=== PATIENT | female | born 1960 | race Caucasian/White ===

== ENCOUNTER 2018-06-06 20:14 | Outpatient (REF) | payer MEDICAID, SELFPAY ==
[2018-06-06 20:40] LABS: Anion Gap 8.4 mmol/L (3-11); BUN 13 mg/dL (7-18); CO2 26.6 mmol/L (21.0-32.0); CREATININE 1.36 mg/dL (0.55-1.02); Chloride 104 mmol/L (98-107); Estimated GFR 39.94 (mL/min/1.73m2); Glucose 93 mg/dL (70-100); HDL Cholesterol 53 mg/dL (40-60); LDL CHOLESTEROL 139 mg/dL (<100); Potassium 4.1 mmol/L (3.5-5.1); Sodium 139 mmol/L (136-145)
== END 2018-06-06 20:34 ==
LOC: NCHCN 20:14
PROVIDERS: PCP Nurse Practitioner Family; Visit Provider Nurse Practitioner Family
DX: N28.9 Disorder of kidney and ureter, unspecified (principal); I10 Essential (primary) hypertension; E78.5 Hyperlipidemia, unspecified
CPT/HCPCS: 80048; 83721; 83718

== ENCOUNTER 2018-08-31 00:17 | Outpatient (CLI) | payer MEDICAID, SELFPAY ==
--- NOTE | 2018-08-31 10:00 | DI.US_ITS ---
SYMPTOM/DIAGNOSIS: ASSESS STRUCTURE OF KIDNEY, CKD, N18.4 RENAL ULTRASOUND: The kidneys are normal in size and shape and there is no evidence of a renal mass, hydronephrosis or nephrolithiasis. Ureteral jets were noted in the bladder bilaterally. Urinary bladder is unremarkable in appearance. Pre and post void urinary bladder volume measurements are 323 cc's and 55 cc's respectively. CONCLUSION: Negative renal ultrasound.
== END 2018-08-31 00:37 ==
PROVIDERS: PCP Nurse Practitioner Family; Visit Provider Internal Medicine
DX: N18.4 Chronic kidney disease, stage 4 (severe) (principal)
CPT/HCPCS: 76770

== ENCOUNTER 2018-10-09 09:11 | Outpatient (CLI) | payer MEDICAID, SELFPAY ==
[2018-10-09 09:32] LABS: Abs Immature Grans 0.02 k/cumm (0.0-0.09); Absolute Basophil Count 0.04 k/cumm (0.0-0.2); Absolute Eosinophil Count 0.17 k/cumm (0.0-0.7); Absolute Lymphocyte Count 1.78 k/cumm (1.2-3.4); Absolute Monocyte Count 0.36 k/cumm (0.11-0.7); Absolute Neutrophil Count 4.61 k/cumm (1.2-6.7); Basophils % 0.6; Eosinophils % 2.4; HCT 40.9 % (36.0-46.0); HGB 13.6 g/dL (12.0-15.5); Immature Grans % 0.3; Lymphocytes % 25.5; Mean Corp. HGB Concentration 33.3 g/dL (32.0-36.0); Mean Corpuscular Hemoglobin 29.6 pg (27.0-33.0); Mean Corpuscular Volume 88.9 fL (80-95); Mean Platelet Volume 10.4 fL (8.0-11.0); Monocytes % 5.2; Platelet Count 294 x1000/uL (130-400); RBC Distribution Width 12.9 % (11.7-14.6); White Blood Cell Count 6.98 k/cumm (4.4-10.8)
[2018-10-09 09:46] LABS: ALT 22 U/L (12-78); AST 12 U/L (15-37); Albumin 2.9 g/dL (3.4-5.0); Alkaline Phosphatase 79 U/L (46-116); Anion Gap 11.2 mmol/L (3-11); BUN 17 mg/dL (7-18); Bilirubin, Total 0.4 mg/dL (0.2-1.0); CO2 25.8 mmol/L (21.0-32.0); Calcium 9.3 mg/dL (8.5-10.1); Chloride 104 mmol/L (98-107); Estimated GFR 35.67 (mL/min/1.73m2); Glucose 116 mg/dL (70-100); Potassium 4.2 mmol/L (3.5-5.1); Sodium 141 mmol/L (136-145); Total Protein 7.2 g/dL (6.4-8.2)
== END 2018-10-09 09:31 ==
PROVIDERS: PCP Nurse Practitioner Family; Visit Provider Internal Medicine
DX: Z85.3 Personal history of malignant neoplasm of breast (principal)
CPT/HCPCS: 36415; 80053; 85025

== ENCOUNTER 2018-11-06 00:56 | Outpatient (CLI) | payer MEDICAID, SELFPAY ==
--- NOTE | 2018-11-06 08:45 | DI.DEXA_ITS ---
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 The bone mineral density measurements of the lumbar spine correspond to a total T score of 1.8, in the normal range. This is a 5% decrease when compared with 2016 and a 4.4% decreased when compared with 2013. The bone mineral density measurements of the left hip correspond to total T score of 2.8 and femoral neck T score of 2.0. Total bone mineral density is decreased 2.9% when compared with 2016 and a 2.5% when compared with 2013. The left forearm bone mineral density measurements correspond to a total T score of 0.7 and a T score of the distal third of 0.2. This is not significantly changed from 2016 but represents a 9.2% decrease when compared with 2013. IMPRESSION: Normal bone mineral density with mild decrease when compared with previous exams.
--- NOTE | 2018-11-06 09:30 | DI.MAMMO_ITS ---
SYMPTOMS/DIAGNOSIS: ANNUAL SCREENING, H/O BREAST CA, Z85.3 MAMMOGRAM: Mammograms were interpreted according to the usual protocol including computer analysis with CAD system, tomosynthesis and C view imaging. The patient is again noted to be status post right lumpectomy. Comparison is made with exams from 2012 through 2018. The breasts are composed of scattered fibroglandular densities, breast density B. Scarring and coarse large calcification is seen in the upper outer quadrant of the right breast. No suspicious masses or suspicious microcalcifications or changes are seen. IMPRESSION: Category 2, negative mammogram with benign findings. Yearly screening mammography is recommended. MQSA ASSESSMENT OF FINDINGS: Negative with benign findings. Category 2. Patient will receive a letter notifying them of these results. BI-RADS category B. There are scattered areas of fibroglandular density.
[2018-11-06 10:03] LABS: Abs Immature Grans 0.01 k/cumm (0.0-0.09); Absolute Basophil Count 0.03 k/cumm (0.0-0.2); Absolute Monocyte Count 0.43 k/cumm (0.11-0.7); Absolute Neutrophil Count 3.97 k/cumm (1.2-6.7); Basophils % 0.5; Eosinophils % 3.2; HCT 40.3 % (36.0-46.0); HGB 13.3 g/dL (12.0-15.5); Immature Grans % 0.2; Lymphocytes % 25.6; Mean Corpuscular Hemoglobin 29.9 pg (27.0-33.0); Mean Corpuscular Volume 90.6 fL (80-95); Mean Platelet Volume 10.4 fL (8.0-11.0); Monocytes % 6.9; Neutrophils % 63.6; Platelet Count 301 x1000/uL (130-400); RBC 4.45 m/cumm (4.00-5.20); RBC Distribution Width 13.1 % (11.7-14.6); White Blood Cell Count 6.24 k/cumm (4.4-10.8)
[2018-11-06 10:11] LABS: ALT 22 U/L (12-78); AST 16 U/L (15-37); Albumin 3.4 g/dL (3.4-5.0); Alkaline Phosphatase 80 U/L (46-116); Anion Gap 6.8 mmol/L (3-11); BUN 14 mg/dL (7-18); Bilirubin, Total 0.2 mg/dL (0.2-1.0); CO2 29.2 mmol/L (21.0-32.0); CREATININE 1.37 mg/dL (0.55-1.02); Calcium 9.1 mg/dL (8.5-10.1); Chloride 105 mmol/L (98-107); Glucose 115 mg/dL (70-100); Potassium 4.2 mmol/L (3.5-5.1); Sodium 141 mmol/L (136-145)
== END 2018-11-06 01:16 ==
PROVIDERS: PCP Nurse Practitioner Family; Visit Provider Internal Medicine
DX: Z85.3 Personal history of malignant neoplasm of breast (principal); Z12.31 Encounter for screening mammogram for malignant neoplasm of breast; M81.8 Other osteoporosis without current pathological fracture; T38.6X5A Adverse effect of antigonadotrophins, antiestrogens, antiandrogens, not elsewhere classified, initial encounter
CPT/HCPCS: 36415; 77063; 77067; 77080; 80053; 85025

== ENCOUNTER 2019-01-16 02:00 | Outpatient (CLI) | payer BC, MEDICAID, SELFPAY ==
--- NOTE | 2019-01-16 14:32 | DI.CTLCSR_ITS ---
SYMPTOMS/DIAGNOSIS: TOBACCO ABUSE, [facility], F17.200, Z00.[address]: A noncontrast enhanced examination was performed. There are emphysematous changes in the lungs. A left lower lobe pleural-based mass is identified, the maximal AP diameter measures 3.5 cm, transverse diameter 4.6 cm in the axial plane. The abnormality extends inferiorly to the level of the diaphragmatic pleura. In the coronal plane, the region of abnormality has a maximal transverse diameter of 4.9 cm and a length of up to 7 cm. A small region of the abnormality on the pleural surface in the right lower lobe is presumed to likely represent scarring. There is no evidence of a right or left pulmonary infiltrate. There is no pleural effusion. Allowing for the absence of contrast material, there is no evidence of gross hilar or mediastinal adenopathy. The heart is not enlarged. There are atherosclerotic changes involving the aorta without evidence of an aneurysm. SUMMARY: There is evidence of COPD. A sizeable posterior pleural-based mass is noted in the left lower lobe and right lower lobe scarring is apparent. The findings are highly suspicious for a pulmonary malignancy and further assessment with a biopsy is suggested. Lung-RAD Category: 4B- Suspicious Lung- RAD Management of Findings: Chest CT, PET/CT, and/or tissue sampling
== END 2019-01-16 02:20 ==
PROVIDERS: PCP Nurse Practitioner Family; Visit Provider Nurse Practitioner Family
DX: Z12.2 Encounter for screening for malignant neoplasm of respiratory organs (principal); F17.200 Nicotine dependence, unspecified, uncomplicated; J44.9 Chronic obstructive pulmonary disease, unspecified; D38.1 Neoplasm of uncertain behavior of trachea, bronchus and lung; J43.9 Emphysema, unspecified; J98.4 Other disorders of lung
CPT/HCPCS: G0297

== ENCOUNTER 2019-01-16 08:36 | Outpatient (REF) | payer BC, MEDICAID, SELFPAY ==
[2019-01-16 13:24] LABS: Cholesterol 193 mg/dL (50-200); Glucose 84 mg/dL (70-100); HDL Cholesterol 57 mg/dL (40-60); LDL CHOLESTEROL 123 mg/dL (<100); Triglyceride 73 mg/dL (30-150)
== END 2019-01-16 08:56 ==
LOC: NCHCN 08:36
PROVIDERS: PCP Nurse Practitioner Family; Visit Provider Nurse Practitioner Family
DX: Z00.00 Encounter for general adult medical examination without abnormal findings (principal); E78.5 Hyperlipidemia, unspecified; Z13.1 Encounter for screening for diabetes mellitus
CPT/HCPCS: 80061; 82947; 83721

== ENCOUNTER 2019-03-25 09:00 | Outpatient (CLI) | payer BC, MEDICAID, SELFPAY ==
[2019-03-25 09:56] LABS: Abs Immature Grans 0.01 k/cumm (0.0-0.09); Absolute Basophil Count 0.03 k/cumm (0.0-0.2); Absolute Eosinophil Count 0.18 k/cumm (0.0-0.7); Absolute Lymphocyte Count 1.67 k/cumm (1.2-3.4); Absolute Monocyte Count 0.48 k/cumm (0.11-0.7); Absolute Neutrophil Count 3.11 k/cumm (1.2-6.7); Basophils % 0.5; Eosinophils % 3.3; HCT 41.2 % (36.0-46.0); HGB 13.6 g/dL (12.0-15.5); Immature Grans % 0.2; Lymphocytes % 30.5; Mean Corpuscular Hemoglobin 29.1 pg (27.0-33.0); Mean Platelet Volume 10.2 fL (8.0-11.0); Monocytes % 8.8; Neutrophils % 56.7; Platelet Count 303 x1000/uL (130-400); RBC 4.68 m/cumm (4.00-5.20); RBC Distribution Width 13.1 % (11.7-14.6); White Blood Cell Count 5.48 k/cumm (4.4-10.8)
[2019-03-25 10:17] LABS: ALT 24 U/L (12-78); AST 17 U/L (15-37); Albumin 3.6 g/dL (3.4-5.0); Alkaline Phosphatase 95 U/L (46-116); Anion Gap 7.2 mmol/L (3-11); BUN 16 mg/dL (7-18); Bilirubin, Total 0.3 mg/dL (0.2-1.0); CO2 28.8 mmol/L (21.0-32.0); CREATININE 1.37 mg/dL (0.55-1.02); Calcium 9.1 mg/dL (8.5-10.1); Chloride 104 mmol/L (98-107); Estimated GFR 39.46 (mL/min/1.73m2); Glucose 90 mg/dL (70-100); Potassium 4.8 mmol/L (3.5-5.1); Sodium 140 mmol/L (136-145); Total Protein 6.9 g/dL (6.4-8.2)
[2019-03-26 15:09] LABS: Cancer Ag 15-3 <8.0 U/mL (<30)
== END 2019-03-25 09:20 ==
PROVIDERS: PCP Nurse Practitioner Family; Visit Provider Internal Medicine
DX: C50.411 Malignant neoplasm of upper-outer quadrant of right female breast (principal); Z17.0 Estrogen receptor positive status [ER+]; Z85.3 Personal history of malignant neoplasm of breast
CPT/HCPCS: 36415; 80053; 86304; 85025; 86300

== ENCOUNTER 2019-04-04 17:49 | Emergency (ER) | payer OTHER, MEDICAID, SELFPAY ==
[2019-04-04] VITALS (24 sets, daily range): BP systolic 122–152; BP diastolic 63–79; PULSE 77–108; RESP 13–23; TEMP 37.5; O2SAT 93–97
--- NOTE | 2019-04-04 18:04 | W.ED.GENAD ---
Discharge Plan Disposition Patient Disposition: AGAINST MEDICAL ADVICE Condition: Stable Discharge Details Chief Complaint: Dizzy/Sync Clinical Impression: Dizziness, SOB (shortness of breath) Primary Care Provider: Aries Kuhn ED Provider: Semaj Light Home Meds and New Rx's Prescriptions: No Action losartan 50 mg Tablet 50 mg PO DAILY RF: 0 cetirizine 10 mg Tablet 10 mg PO DAILY RF: 0 fluticasone propionate 50 mcg/actuation [place],Suspension 1 spray INTRANASAL DAILY RF: 0 Calcium 600 + D(3) 600 mg calcium- 200 unit Capsule 1 cap PO DAILY RF: 0 Discharge Instructions Instructions: Dyspnea (ED), Dizziness (ED) Additional Instructions: As you know it is my recommendation that you stay overnight secondary to your elevated creatinine and your concerning history that worries me for a blood clot. You are leaving against my advice, and I understand your apprehensions for staying overnight, however if at any point you change your mind please return immediately for reassessment. Please drink plenty of water as you go home. Please return promptly tomorrow for your VQ scan, you please come back to the ER immediately after your scan for reassessment and repeat blood draw. Will be contacted by our imaging staff to set up a time for the scan. You have been given subcu Lovenox, which will act as a blood thinner for 24 hours If you notice any worsening of your symptoms, or any new symptoms such as vomiting, diarrhea, fever, chills, shortness of breath, chest pain, numbness, weakness, or fainting , please return immediately to the emergency department for reevaluation. Please follow up with your primary care provider as soon as possible for reassessment and reevaluation. As always, it was a pleasure participating in your medical care today. Referrals: Whitney Ivey [NURSE PRACTITIONER] - Discharge Data Discharge Date/Time-TO BE ENTERED AT DEPARTURE: 04/04/19 21:18 Medical Decision Making This is a 58-year-old female with a past medical history of metastatic breast cancer with metastases to the lungs, who presents today for evaluation of dizziness, mild shortness of breath, and mild lightheadedness. Symptoms began roughly 1 to 2 hours ago when she was walking through the notably hot weather to a store when her symptoms came on. She did get in an air conditioned bus and felt significantly improved after this. She denies any red flags of chest tightness, chest heaviness, or history of cardiac disease. She denies any arm neck or shoulder pain. Exam demonstrates mild tachycardia, but otherwise normal blood pressure and oxygenation. With patient's history of malignancy, there is certainly concern for PE, dehydration and ACS is also on the differential. We will get a CT angiogram, rehydrate, and reassess. 10 PM The patient's laboratory work-up demonstrates a notable acute kidney injury with a significant increase in her creatinine. However her electrolytes are normal. EKG unremarkable, troponin normal, remainder of her laboratory work-up is relatively benign. Because of the acute kidney injury though do not feel that she would be a good candidate for CT angios. Did get a CT scan without contrast and although limited shows no signs of significant right heart strain, but does show the known malignancy in her lungs. After rehydration the patient feels much better, heart rate has normalized, she states that she would like to go home. In spite of her notable clinical improvement I am still significantly concerned for potential pulmonary embolism as well as the patient's acute kidney injury. There is a high likelihood that this is secondary to dehydration which caused her initial symptoms, however due to her history of malignancy, cardiac risk factors, in addition to her acute kidney injury and decreased renal function I do not feel that she would be a good candidate for discharge home, and I do feel that it is important that she stays overnight for continued hydration, laboratory reassessment, and VQ scan in the morning. I have called cardiology and confirmed with them that we could do a VQ scan tomorrow and they have agreed to this. When I did discuss this with the patient she very clearly and adamantly stated that she would not be staying overnight and that she needs to and wants to go home. She states that she feels fine, and sees no reason to stay overnight. I had a very long, and thorough discussion with her describing her laboratory changes, her decrease in renal function, and my significant concern for pulmonary embolism. I discussed how much of this could be notably life-threatening, and that significant pathology could exist which could be detrimental to her health and life. In spite of this the patient made it exquisitely clear that she will be going home. She understands that this is against my medical recommendation. I discussed with her going on anticoagulation therapy for the time being, and she states that she does not want to take any pill anticoagulants. She is willing to have a subcu Lovenox injection for the next 24 hours, and states that she will come back tomorrow morning for the VQ scan. I discussed with her the absolute importance of repeat labs tomorrow after her VQ scan and reassessment in the ED, and she assures me that she will come back to the ED for reassessment in the scan. We discussed red flags that she needs to immediately return for, as well as the open availability of the emergency department for her return if at any time she has a change in opinion. At this time the patient will be leaving against my medical advice. I have extensively reviewed the treatment plan and discharge instructions with the patient. I have addressed all patient concerns at this time. The patient was made aware of what symptoms to monitor for that would warrant a return to the emergency department. Discussed the plan with the patient, they demonstrate verbal understanding and agreement with our assessment and plan at this time. Patient is of a appropriate age to make decisions. The patient is of sound mind, appears clinically sober, and has capacity to make decisions by my clinical exam. We have provided options for treatment and discussed the risks and benefits of these options and refusing these options, including and disability specific to the patient's pathology. Patient is able to discuss the risks and benefits and alternatives of treatment and refusing treatment. The patient chooses to leave before evaluation and treatment is complete AGAINST MEDICAL ADVICE. EKG 18: 00 Rate 97, sinus rhythm, intervals normal, no significant ST elevations or depressions except for less than 1 mm elevation in V1. Q waves present in lead III. No T wave inversions. FINDINGS: Lungs: 5 x 4 cm left lower lobe mass. Adjacent satellite nodule. Minimal dependent subsegmental atelectasis. Pleural space: No pneumothorax. No pleural effusion. Heart: No pathologic dilation of the right ventricle. No cardiomegaly. Aorta: No aortic aneurysm. Lymph nodes: No enlarged lymph nodes. Bones/joints: No acute fracture. Soft tissues: No suspicious lesions. IMPRESSION: 1. 5 x 4 cm left lower lobe mass. Adjacent satellite nodule. Most concerning for malignancy. 2. No pathologic dilation of the right ventricle to suggest right heart strain. Dictated and Authenticated by: Consuelo Harmon MD. Ordering:CECY Cha MD COMPARISON: No relevant prior studies available. FINDINGS: Brain: No hemorrhage. No significant white matter disease. No edema. Ventricles: No ventriculomegaly. Bones/joints: No acute fracture. Sinuses: No acute sinusitis. Mastoid air cells: No mastoid effusion. Soft tissues: No suspicious lesions. IMPRESSION: No acute intracranial findings. Dictated and Authenticated by: Consuelo Harmon MD. Ordering:CECY Cha MD HPI General Date/Time Provider Initiated Documentation: 04/04/19 17:52. HPI Narrative: This is a 58-year-old female with a past medical history of metastatic breast cancer, who has received radiation in the past, and is now currently receiving chemotherapy. She also has a history of continued tobacco abuse, hypertension, and history of blood clots when she had a PICC line in place. She presents today for symptoms of dizziness, lightheadedness and mild shortness of breath. She states that today it is been notably hot out, and when she was going shopping in [place] she felt sweaty, dizzy, and shortness of breath while walking to 1 of the stores. She sat down in a cool bus and felt notably improved after this. Currently she still admits to mild lightheadedness mild shortness of breath but denies any chest pain, chest heaviness, arm neck or shoulder pain, fever, chills, significant headache, significant neck pain, cough, vomiting, or diarrhea. She denies any other complaints or any other modifying factors. She denies any history of cardiac disease. She is on no blood thinners. Related Data Home Medications Medication Instructions Recorded Confirmed calcium carbonate-vitamin D3 1 cap PO DAILY 04/04/19 04/04/19 [Calcium 600 + D(3)] cetirizine 10 mg PO DAILY 04/04/19 04/04/19 fluticasone propionate 1 spray INTRANASAL DAILY 04/04/19 04/04/19 losartan 50 mg PO DAILY 04/04/19 04/04/19 Allergies Allergy/AdvReac Type Severity Reaction Status Date / Time Sulfa (Sulfonamide Allergy Severe HIVES, Unverified 04/04/19 18:06 Antibiotics) ITCHING, BURNING Penicillins Allergy Mild Skin Rash Unverified 04/04/19 18:06 General Stated Complaint: Dizzy/Sync NAHID: 2 Review of Systems Review of Systems All systems reviewed & are unremarkable except as noted in HPI and below PFSH Medical History Deep venous thrombosis of upper extremity Infiltrating ductal carcinoma of breast, stage 3 Surgical History Breast, Mastectomy Family History Mother No problems noted. Father No problems noted. Social History Smoking/Tobacco Use Status: Current every day Tobacco Type: cigarettes Alcohol Intake: never Drug use: Never Do you feel safe at home: Yes Do you feel safe in your relationship?: Yes Exam Narrative Exam Narrative: 1.Const: Well-nourished, Well-developed, appearing stated age 2.Eyes: PERRL, no conjunctival injection, and symmetrical lids. 3.ENT: Atraumatic external nose and ears. Moist MM. Neck: Symmetric, trachea midline, No thyromegaly. 4.CVS: +S1/S2, No murmurs or gallops. Peripheral pulses 2+ and equal in all extremities. Brisk capillary refill in all extremities. 5.RESP: Unlabored respiratory effort. Clear to auscultation bilaterally. No wheezes rales or rhonchi 6.GI: Soft, Nontender/Nondistended, No hepatosplenomegaly. No guarding or rebound. 7.MSK: Normocephalic/Atraumatic, Extremities w/o deformity or ttp No cyanosis or clubbing, Normal movement of all extremities. No evidence of pitting edema. 8.Skin: Warm, Dry. Mild amount of redness on the patient's right breast, no evidence of abscess or induration. No significant warmth. 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 Sensation grossly intact, no focal neurologic deficits. All 6 cardinal planes of vision are fully intact. No evidence of rotatory or vertical nystagmus. The patient demonstrated a normal [id number], good dexterity. There was no evidence of dysdiadochokinesia. Patient was able to ambulate without difficulty. There was no wide-based gait. Romberg, and [id number] are both normal on testing. Sensation was intact bilaterally as well as muscle strength bilaterally for all extremities. Patient was able to verbalize butter cup with no slurring, or miss pronunciation. 10.Psych: (AAO) x3. Appropriate mood and affect Course Vital Signs Temperature 37.5 C 04/04/19 17:58 Pulse 105 H 04/04/19 17:58 Respiratory Rate 21 07/04/19 17:58 Pulse Oximetry 95 04/04/19 17:58 Temperature 37.5 C 04/04/19 17:58 Temperature Source Oral 04/04/19 17:58 Pulse 105 H 04/04/19 17:58 Respiratory Rate 21 04/04/19 17:58 Blood Pressure Position Sitting 04/04/19 17:58 Pulse Oximetry 95 04/04/19 17:58 Oxygen Delivery Method Room Air 04/04/19 17:58 Oxygen Flow Rate 0 04/04/19 17:58 Pain Level 3 04/04/19 17:58
[2019-04-04 18:30] LABS: BE (Venous) -0.1 mmol/L (-3-3); HCO3 (Venous) 25 mmol/L (22-28); O2 Sat (Venous) 72 % (70-80); TCO2 (Venous) 23 mmol/L (22-29); pCO2 (Venous) 40 mm/Hg (34-47); pO2 (Venous) 36 mm/Hg (28-44)
[2019-04-04 18:38] LABS: Abs Immature Grans 0.03 k/cumm (0.0-0.09); Absolute Basophil Count 0.02 k/cumm (0.0-0.2); Absolute Eosinophil Count 0.07 k/cumm (0.0-0.7); Absolute Lymphocyte Count 0.93 k/cumm (1.2-3.4); Absolute Monocyte Count 0.97 k/cumm (0.11-0.7); Basophils % 0.2; Eosinophils % 0.6; HCT 38.6 % (36.0-46.0); HGB 12.9 g/dL (12.0-15.5); Immature Grans % 0.3; Mean Corp. HGB Concentration 33.4 g/dL (32.0-36.0); Mean Corpuscular Hemoglobin 29.1 pg (27.0-33.0); Mean Corpuscular Volume 86.9 fL (80-95); Mean Platelet Volume 10.1 fL (8.0-11.0); Monocytes % 8.3; Neutrophils % 82.6; Platelet Count 249 x1000/uL (130-400); RBC 4.44 m/cumm (4.00-5.20); RBC Distribution Width 13.2 % (11.7-14.6); White Blood Cell Count 11.66 k/cumm (4.4-10.8)
[2019-04-04 18:40] LABS: Absolute Neutrophil Count 9.63 k/cumm (1.2-6.7)
[2019-04-04] MEDS: Normal Saline 1,000 ML 1000 ML IV (18:44)
[2019-04-04 18:56] LABS: BUN 21 mg/dL (7-18); CREATININE 1.93 mg/dL (0.55-1.02); Estimated GFR 26.57 (mL/min/1.73m2)
[2019-04-04 19:07] LABS: ALT 19 U/L (12-78); AST 8 U/L (15-37); Albumin 3.6 g/dL (3.4-5.0); Alkaline Phosphatase 82 U/L (46-116); Anion Gap 10.3 mmol/L (3-11); Bilirubin, Total 0.4 mg/dL (0.2-1.0); CO2 22.7 mmol/L (21.0-32.0); Calcium 9.2 mg/dL (8.5-10.1); Chloride 102 mmol/L (98-107); Glucose 107 mg/dL (70-100); NT-proBNP 249 pg/mL; Sodium 135 mmol/L (136-145); TSH (W/Ref FT4) 1.97 uIU/mL (0.358-3.74); Total Protein 7.2 g/dL (6.4-8.2)
[2019-04-04 19:09] LABS: Troponin I < 0.05 ng/mL (0.00-0.06)
[2019-04-04 20:04] LABS: INR 0.9 (0.9-1.1); Prothrombin Time 9.1 sec (9.3-11.0)
--- NOTE | 2019-04-04 20:35 | DI.VRAD_ITS ---
EXAM: CT Chest Without Contrast EXAM DATE/TIME: 04/04/2019 19:12 CLINICAL HISTORY: 58 years old, female; Shortness of breath; Patient HX: SOB, R heart strain, concern for pe. Non contrast exam due to insufficient labs TECHNIQUE: Imaging protocol: Axial computed tomography images of the chest without intravenous contrast. Coronal and sagittal reformatted images were created and reviewed. Radiation optimization: All CT scans at this facility use at least one of these dose optimization techniques: automated exposure control; mA and/or kV adjustment per patient size (includes targeted exams where dose is matched to clinical indication); or iterative reconstruction. COMPARISON: CT CHEST LUNG CANCER SCREEN 01/16/2019 14:32 FINDINGS: Lungs: 5 x 4 cm left lower lobe mass. Adjacent satellite nodule. Minimal dependent subsegmental atelectasis. Pleural space: No pneumothorax. No pleural effusion. Heart: No pathologic dilation of the right ventricle. No cardiomegaly. Aorta: No aortic aneurysm. Lymph nodes: No enlarged lymph nodes. Bones/joints: No acute fracture. Soft tissues: No suspicious lesions. IMPRESSION: 1. 5 x 4 cm left lower lobe mass. Adjacent satellite nodule. Most concerning for malignancy. 2. No pathologic dilation of the right ventricle to suggest right heart strain. Dictated and Authenticated by: Consuelo Harmon MD. Ordering:CECY Cha MD
--- NOTE | 2019-04-04 20:36 | DI.VRAD_ITS ---
EXAM: CT Head Without Contrast EXAM DATE/TIME: 04/04/2019 18:03 CLINICAL HISTORY: 58 years old, female; Dizziness; Patient HX: Dizzy, lightheaded, history of malignancy TECHNIQUE: Imaging protocol: Axial computed tomography images of the head without contrast. Coronal and sagittal reformatted images were created and reviewed. Radiation optimization: All CT scans at this facility use at least one of these dose optimization techniques: automated exposure control; mA and/or kV adjustment per patient size (includes targeted exams where dose is matched to clinical indication); or iterative reconstruction. COMPARISON: No relevant prior studies available. FINDINGS: Brain: No hemorrhage. No significant white matter disease. No edema. Ventricles: No ventriculomegaly. Bones/joints: No acute fracture. Sinuses: No acute sinusitis. Mastoid air cells: No mastoid effusion. Soft tissues: No suspicious lesions. IMPRESSION: No acute intracranial findings. Dictated and Authenticated by: Consuelo Harmon MD. Ordering:CECY Cha MD
--- NOTE | 2019-04-04 23:57 | DI.CT_ITS ---
SYMPTOM/DIAGNOSIS; EVAL FOR SOB, RT HEART STRAIN, CONCERN FOR PE CT CHEST NONCONTRAST: Comparison is made with chest CT for lung cancer screening dated 16 January 2019. A mass is again noted in the posterior left lung base which appears to have increased in size when compared to the previous exam. A small satellite nodule is unchanged. There is minimal atelectasis at the right lung base. The heart size is normal. No pleural or pericardial effusions are seen. The aorta is normal in diameter. The pulmonary arteries also appear normal in diameter. The visualized portions of the upper abdomen are unremarkable. IMPRESSION: Interval increase in size of left lower lobe mass. Biopsy was recommended on the previous exam. Clinical correlation is recommended,
--- NOTE | 2019-04-04 23:57 | DI.CT_ITS ---
SYMPTOM/DIAGNOSIS: DIZZY, LIGHTHEADED, HISTORY OF MALIGNANCY NONCONTRAST HEAD CT: Comparison is made with [address] No intracranial hemorrhage, mass or infarct is seen. There is no evidence of skull fracture. The sinuses and mastoid air cells appear clear. IMPRESSION: Negative head CT.
== END 2019-04-04 21:18 | disposition left against medical advice (07) ==
PROVIDERS: Emergency Provider Student in an Organized Health Care Education/Training Program; PCP Nurse Practitioner Family
DX: R42 Dizziness and giddiness (principal); R06.02 Shortness of breath; N17.9 Acute kidney failure, unspecified; Z53.29 Procedure and treatment not carried out because of patient's decision for other reasons; C78.02 Secondary malignant neoplasm of left lung; Z79.899 Other long term (current) drug therapy
CPT/HCPCS: 36415; 71250; 80053; 82805; 99285; 70450; 83880; 84443; 84484; 85025; 85610; 85730; J1650

== ENCOUNTER 2019-04-05 23:06 | Inpatient (IN) | payer OTHER, MEDICAID, SELFPAY ==
[2019-04-05 23:13] VITALS: BP 143/52; PULSE 92; RESP 20; TEMP 38.2; O2SAT 99
--- NOTE | 2019-04-05 23:30 | W.ED.GENAD ---
Discharge Plan Disposition Patient Disposition: [facility] INPATIENT Condition: Fair Discharge Details Chief Complaint: Fever Clinical Impression: Cellulitis of right breast Primary Care Provider: Aries Kuhn ED Provider: Wood Welch [facility] and New Rx's Prescriptions: No Action losartan 50 mg Tablet 50 mg PO DAILY RF: 0 cetirizine 10 mg Tablet 10 mg PO DAILY RF: 0 fluticasone propionate 50 mcg/actuation [place],Suspension 1 spray INTRANASAL DAILY RF: 0 Calcium 600 + D(3) 600 mg calcium- 200 unit Capsule 1 cap PO DAILY RF: 0 Ibrance 125 mg Capsule 125 mg PO HS RF: 0 Medical Decision Making Patient has right breast cellulitis. I do not suspect abscess but she will need imaging with a repeat CAT scan or ultrasound to rule this out. I am not overly concerned that she did not have the VQ scan done. She has no shortness of breath, chest pain, pleurisy, tachycardia, lightheadedness. Suspect her symptoms yesterday related to onset of illness with dehydration. Plan to establish IV and give fluids, recheck laboratory studies, start IV Ancef. We will plan admission given the extensive nature of the cellulitis and the need to rule out abscess. Patient laboratory studies for the most part unremarkable. Still some renal insufficiency with creatinine at 1.8. Lactic acid is normal. Electrolytes normal. White count normal at 9.5. She has received a gram of Ancef. She did spike a temp to 103 here. She received Tylenol for the fever. Case discussed with hospitalist, Dr. Hoffman. Patient admitted to [facility] for fluids, antibiotics. Did discuss need for imaging to rule out abscess. Patient admitted in stable condition. Medical Records Medical records reviewed: Yes I reviewed the patient's medical records. Lab Data Lab results reviewed: Yes I reviewed the patient's lab results. HPI General Mode of arrival: ambulatory. Date/Time Provider Initiated Documentation: 04/05/19 23:07. Limitations to Documentation: no limitations. Information obtained by: patient, RN notes reviewed and old records reviewed. HPI Narrative: Patient returns to ED tonight with fever, chills, aches. She was seen here last night after an episode of lightheadedness. She left AMA refusing admission for overnight hydration and VQ scan. There was some concern given her history of active malignancy with dizziness and tachycardia for PE. She had dehydration with MARINA and could not get CTA of the chest. She was supposed to get a VQ scan today but went to work instead. She has had no recurrent dizziness or lightheadedness. She has had no chest pain, pleuritic pain, shortness of breath. She did have some right breast redness on visit yesterday. However in the last 24 hours the breast has become exquisitely painful, red and she has developed fever, chills, malaise. She returns to ED for evaluation. She has started chemotherapy which sounds like an oral/IM injection regimen. Related Data Home Medications Medication Instructions Recorded Confirmed calcium carbonate-vitamin D3 1 cap PO DAILY 04/04/19 04/06/19 [Calcium 600 + D(3)] cetirizine 10 mg PO DAILY 04/04/19 04/06/19 fluticasone propionate 1 spray INTRANASAL DAILY 04/04/19 04/06/19 losartan 50 mg PO DAILY 04/04/19 04/06/19 palbociclib [Ibrance] 125 mg PO HS 04/06/19 04/06/19 Allergies Allergy/AdvReac Type Severity Reaction Status Date / Time Sulfa (Sulfonamide Allergy Severe HIVES, Unverified 04/05/19 23:19 Antibiotics) ITCHING, BURNING sulfamethoxazole Allergy Intermediate Skin Rash Unverified 04/05/19 23:19 [From Bactrim] trimethoprim [From Bactrim] Allergy Intermediate Skin Rash Unverified 04/05/19 23:19 Penicillins Allergy Mild Skin Rash Unverified 04/05/19 23:19 General Stated Complaint: Fever NAHID: 3 Review of Systems Review of Systems 07/15 Review of Systems completed and is negative except as stated above in HPI (Systems reviewed: Const, Eyes, ENT, Resp, CV, GI, , MSK, Skin, Neuro) PFSH Medical History Metastatic breast cancer (Acute) HTN (hypertension) (Chronic) Infiltrating ductal carcinoma of breast, stage 3 (Chronic) Deep venous thrombosis of upper extremity (Inactive) Surgical History Breast, Mastectomy (Inactive) Family History Mother No problems noted. Father No problems noted. Social History Smoking/Tobacco Use Status: Current every day Tobacco Type: cigarettes Alcohol Intake: never Drug use: Never Do you feel safe at home: Yes Do you feel safe in your relationship?: Yes Exam Narrative Exam Narrative: Vitals: Febrile but no tachycardia or hypotension. Const: Obese female in NAD. HEENT: NC/AT. Normal facial exam. Eyes: Normal conjunctiva and sclera. Neck: Supple. Trachea midline. Breast: Right breast examined with female nurse present. Breast is red, indurated and tender to palpation. No obvious fluctuant area appreciated. Erythema tracking to the back. Lungs: Normal respiratory effort. Lungs with a few scattered wheezes. Cor: RRR without murmur/gallop. Good radial pulses. GI: Soft. NT/ND. No guarding or rebound. Neuro: A+O x 3. CN grossly in tact. Good strength and no focal deficit. Ext: No C/C/E. No deformity or tenderness. Skin: Erythematous breast/right back. Course Vital Signs Temperature 100.8 F H 04/05/19 23:13 Pulse 92 H 04/05/19 23:13 Respiratory Rate 20 04/05/19 23:13 Blood Pressure 143/52 H 04/05/19 23:13 Pulse Oximetry 99 04/05/19 23:13 Temperature 100.8 F H 04/05/19 23:13 Temperature Source Temporal Artery Scan 04/05/19 23:13 Pulse 92 H 04/05/19 23:13 Respiratory Rate 20 04/05/19 23:13 Respiratory Effort Non-Labored 04/05/19 23:13 Blood Pressure 143/52 H 04/05/19 23:13 Blood Pressure Position Supine 04/05/19 23:13 Pulse Oximetry 99 04/05/19 23:13 Oxygen Delivery Method Room Air 04/05/19 23:13 Oxygen Flow Rate 0 04/05/19 23:13 Pain Level 8 04/05/19 23:13 Comment 04/05/19 23:13
--- NOTE | 2019-04-05 23:42 | ED.GENADUL_ITS ---
Discharge Plan Disposition Patient Disposition: [facility] INPATIENT Condition: Fair Discharge Details Chief Complaint: Fever Clinical Impression: Cellulitis of right breast Primary Care Provider: Aries Kuhn ED Provider: Wood Welch [facility] and New Rx's Prescriptions: No Action losartan 50 mg Tablet 50 mg PO DAILY RF: 0 cetirizine 10 mg Tablet 10 mg PO DAILY RF: 0 fluticasone propionate 50 mcg/actuation [place],Suspension 1 spray INTRANASAL DAILY RF: 0 Calcium 600 + D(3) 600 mg calcium- 200 unit Capsule 1 cap PO DAILY RF: 0 Ibrance 125 mg Capsule 125 mg PO HS RF: 0 Medical Decision Making Patient has right breast cellulitis. I do not suspect abscess but she will need imaging with a repeat CAT scan or ultrasound to rule this out. I am not overly concerned that she did not have the VQ scan done. She has no shortness of breath, chest pain, pleurisy, tachycardia, lightheadedness. Suspect her symptoms yesterday related to onset of illness with dehydration. Plan to establish IV and give fluids, recheck laboratory studies, start IV Ancef. We will plan admission given the extensive nature of the cellulitis and the need to rule out abscess. Patient laboratory studies for the most part unremarkable. Still some renal insufficiency with creatinine at 1.8. Lactic acid is normal. Electrolytes normal. White count normal at 9.5. She has received a gram of Ancef. She did spike a temp to 103 here. She received Tylenol for the fever. Case discussed with hospitalist, Dr. Hoffman. Patient admitted to [facility] for fluids, antibiotics. Did discuss need for imaging to rule out abscess. Patient admitted in stable condition. Medical Records Medical records reviewed: Yes I reviewed the patient's medical records. Lab Data Lab results reviewed: Yes I reviewed the patient's lab results. HPI General Mode of arrival: ambulatory . Date/Time Provider Initiated Documentation: 04/05/19 23:07 . Limitations to Documentation: no limitations . Information obtained by: patient, RN notes reviewed and old records reviewed . HPI Narrative: Patient returns to ED tonight with fever, chills, aches. She was seen here last night after an episode of lightheadedness. She left AMA refusing admission for overnight hydration and VQ scan. There was some concern given her history of active malignancy with dizziness and tachycardia for PE. She had dehydration with MARINA and could not get CTA of the chest. She was supposed to get a VQ scan today but went to work instead. She has had no recurrent dizziness or lightheadedness. She has had no chest pain, pleuritic pain, shortness of breath. She did have some right breast redness on visit yesterday. However in the last 24 hours the breast has become exquisitely painful, red and she has developed fever, chills, malaise. She returns to ED for evaluation. She has started chemotherapy which sounds like an oral/IM injection regimen. Related Data Home Medications Medication Instructions Recorded Confirmed calcium carbonate-vitamin D3 1 cap PO DAILY 04/04/19 04/06/19 [Calcium 600 + D(3)] cetirizine 10 mg PO DAILY 04/04/19 04/06/19 fluticasone propionate 1 spray INTRANASAL DAILY 04/04/19 04/06/19 losartan 50 mg PO DAILY 04/04/19 04/06/19 palbociclib [Ibrance] 125 mg PO HS 04/06/19 04/06/19 Allergies Allergy/AdvReac Type Severity Reaction Status Date / Time Sulfa (Sulfonamide Allergy Severe HIVES, Unverified 04/05/19 23:19 Antibiotics) ITCHING, BURNING sulfamethoxazole Allergy Intermediate Skin Rash Unverified 04/05/19 23:19 [From Bactrim] trimethoprim [From Bactrim] Allergy Intermediate Skin Rash Unverified 04/05/19 23:19 Penicillins Allergy Mild Skin Rash Unverified 04/05/19 23:19 General Stated Complaint: Fever NAHID: 3 Review of Systems Review of Systems 07/15 Review of Systems completed and is negative except as stated above in HPI (Systems reviewed: Const, Eyes, ENT, Resp, CV, GI, , MSK, Skin, Neuro) PFSH Medical History Metastatic breast cancer (Acute) HTN (hypertension) (Chronic) Infiltrating ductal carcinoma of breast, stage 3 (Chronic) Deep venous thrombosis of upper extremity (Inactive) Surgical History Breast, Mastectomy (Inactive) Family History Mother No problems noted. Father No problems noted. Social History Smoking/Tobacco Use Status: Current every day Tobacco Type: cigarettes Alcohol Intake: never Drug use: Never Do you feel safe at home: Yes Do you feel safe in your relationship?: Yes Exam Narrative Exam Narrative: Vitals: Febrile but no tachycardia or hypotension. Const: Obese female in NAD. HEENT: NC/AT. Normal facial exam. Eyes: Normal conjunctiva and sclera. Neck: Supple. Trachea midline. Breast: Right breast examined with female nurse present. Breast is red, indurated and tender to palpation. No obvious fluctuant area appreciated. Erythema tracking to the back. Lungs: Normal respiratory effort. Lungs with a few scattered wheezes. Cor: RRR without murmur/gallop. Good radial pulses. GI: Soft. NT/ND. No guarding or rebound. Neuro: A+O x 3. CN grossly in tact. Good strength and no focal deficit. Ext: No C/C/E. No deformity or tenderness. Skin: Erythematous breast/right back. Course Vital Signs Temperature 100.8 F H 04/05/19 23:13 Pulse 92 H 04/05/19 23:13 Respiratory Rate 20 04/05/19 23:13 Blood Pressure 143/52 H 04/05/19 23:13 Pulse Oximetry 99 04/05/19 23:13 Temperature 100.8 F H 04/05/19 23:13 Temperature Source Temporal Artery Scan 04/05/19 23:13 Pulse 92 H 04/05/19 23:13 Respiratory Rate 20 04/05/19 23:13 Respiratory Effort Non-Labored 04/05/19 23:13 Blood Pressure 143/52 H 04/05/19 23:13 Blood Pressure Position Supine 04/05/19 23:13 Pulse Oximetry 99 04/05/19 23:13 Oxygen Delivery Method Room Air 04/05/19 23:13 Oxygen Flow Rate 0 04/05/19 23:13 Pain Level 8 04/05/19 23:13 Comment 04/05/19 23:13
[2019-04-06] VITALS (12 sets, daily range): BP systolic 107–151; BP diastolic 49–74; PULSE 61–88; RESP 16–20; TEMP 36.2–39.5; O2SAT 95–98
[2019-04-06 00:39] LABS: Lactate-non-spesis 1.5 mmol/l (0.6-1.4)
[2019-04-06 00:41] LABS: Abs Immature Grans 0.02 k/cumm (0.0-0.09); Absolute Basophil Count 0.02 k/cumm (0.0-0.2); Absolute Lymphocyte Count 1.13 k/cumm (1.2-3.4); Absolute Monocyte Count 0.39 k/cumm (0.11-0.7); Absolute Neutrophil Count 7.82 k/cumm (1.2-6.7); Basophils % 0.2; Eosinophils % 1.1; HCT 36.9 % (36.0-46.0); HGB 12.3 g/dL (12.0-15.5); Immature Grans % 0.2; Lymphocytes % 11.9; Mean Corp. HGB Concentration 33.3 g/dL (32.0-36.0); Mean Corpuscular Hemoglobin 29.4 pg (27.0-33.0); Mean Corpuscular Volume 88.3 fL (80-95); Mean Platelet Volume 10.1 fL (8.0-11.0); Monocytes % 4.1; Neutrophils % 82.5; Platelet Count 225 x1000/uL (130-400); RBC 4.18 m/cumm (4.00-5.20); RBC Distribution Width 13.3 % (11.7-14.6); White Blood Cell Count 9.48 k/cumm (4.4-10.8)
[2019-04-06] MEDS: Lactated Ringers 1,000 ML 200 ML IV ×5 (01:00→20:54)
[2019-04-06] MEDS: Acetaminophen 500 MG TAB 1000 MG PO (01:17)
[2019-04-06 01:19] LABS: Anion Gap 11.2 mmol/L (3-11); BUN 17 mg/dL (7-18); CO2 24.8 mmol/L (21.0-32.0); CREATININE 1.79 mg/dL (0.55-1.02); Calcium 8.2 mg/dL (8.5-10.1); Chloride 100 mmol/L (98-107); Estimated GFR 28.98 (mL/min/1.73m2); Glucose 104 mg/dL (70-100); Magnesium 1.7 mg/dL (1.8-2.4); Potassium 4.6 mmol/L (3.5-5.1); Sodium 136 mmol/L (136-145)
[2019-04-06 01:21] LABS: Troponin I < 0.05 ng/mL (0.00-0.06)
--- NOTE | 2019-04-06 06:36 | HPE_ITS ---
Date of service: 04/06/19 Time of Service: 06:24 Assessment and Plan (1) Mastitis, acute: Start date: 04/04/19 Current visit: Yes Status: Acute This is a 58-year-old lady who had previous partial mastectomy on the right which clinically appears to have been mostly a lumpectomy with lymph node dissection presenting with acute swelling, erythema and tenderness of her right breast consistent with mastitis which has responded to 1 dose of Ancef which will be continued. She also was slightly dry and IV hydration has quickly improved her status with her fever resolving and the patient appearing more comfortable. Right breast tenderness and swelling as well as redness has improved by ~50% since her admission early this morning. 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 (2) Dehydration: Start date: 04/05/19 Current visit: Yes Status: Acute The patient is responding well to IV lactated Ringer's which will be continued slowly decreasing the IV rate as she increases her oral intake and exercise. Follow-up lab. She did have lactic acidosis with elevation of her creatinine and mild hypomagnesemia which will be treated with oral magnesium. (3) Infiltrating ductal carcinoma of right breast, stage 3: Current visit: Yes Status: Chronic Patient may have metastatic disease into her left lung though there is a history from the patient that at first it was thought this was a primary lung cancer. She does continue to smoke. She will continue outpatient treatment for this problem. (4) Mass of lower lobe of left lung: Current visit: Yes Status: Chronic Left lower lobe mass appears to be increasing by most recent imaging in the ED on 04 of April. This needs follow-up as an outpatient. It is not symptomatic at this time. History of Present Illness Chief Complaint: Fever and chills with myalgias Narrative: This is a 58-year-old lady with a history of right lumpectomy with partial mastectomy and lymph node dissection sentinel node biopsy in the past with more recent history of metastatic disease versus primary lung cancer on the left on chemotherapy. She does have a diagnosis of infiltrating ductal carcinoma stage III. Denies prior to admission the patient began to have lightheadedness with aches in her muscles and chills with fever. She reported to the ED that evening but refused to stay for further evaluation and went home. There are plans to evaluate her for possible PE with a VQ scan because of her renal insufficiency. She was also advised to have IV hydration which was started last evening. She had no signs or symptoms to suggest thromboembolic events last evening and did not have studies. On the evening of admission patient came back to the hospital with fever with this not as prominent the evening before. Also her right breast became more swollen and red as well as tender. She was diagnosed with possible cellulitis or mastitis of the right breast given 1 dose of Ancef with good results. She also was defervesced with treatment of her fever. She continues to have tenderness over her right breast with induration over the inferior lateral scar and 7:00 as well as tenderness over her trapezius muscle on the right versus supraclavicular lymphadenopathy which is tender. 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 She is a smoker continues to smoke. She also has hypertension which is controlled. Review of Systems Review of Systems 13 point review of systems reveals patient is obese which is chronic but no weight loss recently, she is very active problem [employer], she continues to smoke but has no respiratory complaints other than a chronic cough and recent CT scan did show enlarging mass in her left lung which has been biopsied and tissue according to the patient revealed primary lung cancer and then was thought to be metastatic breast cancer. She denies any hemoptysis. Did have some GI symptoms with slight nausea with her episode on 04 April. She does have chills and myalgias with fever last night. Otherwise unrevealing or stable. [facility] Medical History Metastatic breast cancer (Acute) HTN (hypertension) (Chronic) Infiltrating ductal carcinoma of breast, stage 3 (Chronic) Deep venous thrombosis of upper extremity (Inactive) Surgical History Breast, Mastectomy (Inactive) Family History Mother No problems noted. Father No problems noted. Social History Smoking/Tobacco Use Status: Current every day Tobacco Type: cigarettes Alcohol Intake: never Drug use: Never Do you feel safe at home: Yes Do you feel safe in your relationship?: Yes Meds Home Medications Medication Instructions Recorded Confirmed Type calcium carbonate-vitamin D3 1 cap PO DAILY 04/04/19 04/06/19 History [Calcium 600 + D(3)] cetirizine 10 mg PO DAILY 04/04/19 04/06/19 History fluticasone propionate 1 spray INTRANASAL DAILY 04/04/19 04/06/19 History losartan 50 mg PO DAILY 04/04/19 04/06/19 History palbociclib [Ibrance] 125 mg PO HS 04/06/19 04/06/19 History Allergies Allergy/AdvReac Type Severity Reaction Status Date / Time Sulfa (Sulfonamide Allergy Severe HIVES, Unverified 04/05/19 23:19 Antibiotics) ITCHING, BURNING sulfamethoxazole Allergy Intermediate Skin Rash Unverified 04/05/19 23:19 [From Bactrim] trimethoprim [From Bactrim] Allergy Intermediate Skin Rash Unverified 04/05/19 23:19 Penicillins Allergy Mild Skin Rash Unverified 04/05/19 23:19 Exam Narrative Exam Narrative: General: Patient appears slightly older than stated age, moderately obese in no acute distress and alert and oriented x3. HEENT: Normocephalic with coarsened features of the face, eyes with pupils equal and reactive to light symmetrically with extraocular movement intact and sclera anicteric. Oropharynx with dry oral mucosa. Neck: Supple without JVD. Lungs: Bronchovesicular breath sounds diffusely with fair aeration and no focalizing rales or rhonchi. Slight expiratory wheeze with cough with normal expiratory phase. Heart: Regular rate and rhythm without murmurs or gallops appreciated. Breast: Left breast annulus with slight erythematous rash under the breast no palpable masses or tenderness and normal nipple. Right breast is pendulous with erythema mostly over the inferior and lateral aspect presently but more diffusely upon admission by description in the ED. Warm to touch and tender especially over the lateral anterior aspect where she has an atrophic irregular scar with induration worse at the scar. Abdomen: Obese contour and soft to palpation without palpable hepatomegaly and no focal tenderness or guarding. Bowel sounds positive in all quadrants. Genitalia/Rectal: Exam deferred. Extremities: No pitting edema, clubbing or cyanosis. Skin: Dry, normal turgor with darkly tanned skin over sun exposed areas. Erythema over the right breast as described with increased warmth to touch. Lymphatics: No tender or palpable right axillary lymphadenopathy questionable supraclavicular tender adenopathy on the right. Otherwise no focalizing lymphadenopathy. Neuro: Cranial nerves II through XII grossly intact, motor grossly intact with patient moving all extremities. Psych: Normal affect with slightly anxious mood, remote and recent memory intact. Results Imaging Imaging Studies: Exam(s) a CT:CT chest wo SYMPTOM/DIAGNOSIS; EVAL FOR SOB, RT HEART STRAIN, CONCERN FOR PE CT CHEST NONCONTRAST: Comparison is made with chest CT for lung cancer screening dated 16 January 2019. A mass is again noted in the posterior left lung base which appears to have inc reased in size when compared to the previous exam. A small satellite nodule is unchanged. There is minimal atelectasis at the right lung base. The heart size is normal. No pleural or pericardial effusions are seen. The aorta is normal in diameter. The pulmonary arteries also appear normal in diameter. The visualized portions of the upper abdomen are unremarkable. IMPRESSION: Interval increase in size of left lower lobe mass. Biopsy was recommended on the previous exam. Clinical correlation is recommended, [id number]: Total DLP = 0.00 mGy-cm Ordered By: Semaj Light DO CC: Dictated By: Mirna Moses M.D. 04/05/19 0922 <Electronically signed by Mirna Moses M.D.> 04/05/19 1125 Transcribed By: Karma Oliver 04/05/19 1005 Exam(s) a CT:CT head wo SYMPTOM/DIAGNOSIS: DIZZY, LIGHTHEADED, HISTORY OF MALIGNANCY NONCONTRAST HEAD CT: Comparison is made with [address] No intracranial hemorrhage, mass or infarct is seen. There is no evidence of skull fracture. The sinuses and mastoid air cells appear clear. IMPRESSION: Negative head CT. [id number]: Total DLP = 0.00 mGy-cm Ordered By: Semaj Light DO CC: Dictated By: Mirna Moses M.D. 04/05/19 0922 <Electronically signed by Mirna Moses M.D.> 04/05/19 1005 Transcribed By: Karma Oliver 04/05/19 1002 Labs : 04/05/19 00:29 04/05/19 00:29 Laboratory Results - last 24 hr 04/05/19 04/05/19 04/05/19 00:29 00:29 00:29 WBC 9.48 RBC 4.18 Hgb 12.3 Hct 36.9 MCV 88.3 MCH 29.4 MCHC 33.3 RDW 13.3 Plt Count 225 MPV 10.1 Immature Gran % 0.2 Neutrophils % 82.5 Lymphocytes % 11.9 Monocytes % 4.1 Eosinophils % 1.1 Basophils % 0.2 Absolute Neutrophils 7.82 H Absolute Lymphocytes 1.13 L Absolute Monocytes 0.39 Absolute Eosinophils 0.10 Absolute Basophils 0.02 Sodium 136 Potassium 4.6 Chloride 100 Carbon Dioxide 24.8 Anion Gap 11.2 H BUN 17 Creatinine 1.79 H Estimated GFR/1.73 m2 28.98 Glucose 104 H Lactate 1.5 H Calcium 8.2 L Magnesium 1.7 L Troponin I < 0.05 Last Vital Signs Temp 36.9 C 04/06/19 03:11 Pulse 82 04/06/19 02:48 Resp 18 04/06/19 02:48 BP 139/70 04/06/19 02:48 Pulse Ox 95 04/06/19 02:48
[2019-04-06] MEDS: Ibuprofen 600 MG TAB PO (08:29)
[2019-04-06] MEDS: Losartan 50 MG TAB PO (08:29)
[2019-04-06] MEDS: Cetirizine 10 MG TAB PO (08:29)
[2019-04-06] MEDS: Calcium 600mg/Vit D 200U TAB 1 TAB PO (08:29)
[2019-04-06] MEDS: Heparin 5,000 UNITS/ML VIAL 5000 UNITS SC ×2 (08:32→15:41)
[2019-04-06] MEDS: Magnesium Lactate-SR 84 MG TABCR PO ×2 (08:43→19:27)
[2019-04-06 11:59] LABS: Anion Gap 8.9 mmol/L (3-11); BUN 18 mg/dL (7-18); CO2 24.1 mmol/L (21.0-32.0); CREATININE 1.67 mg/dL (0.55-1.02); Chloride 104 mmol/L (98-107); Glucose 99 mg/dL (70-100); Magnesium 1.9 mg/dL (1.8-2.4); Potassium 4.1 mmol/L (3.5-5.1); Sodium 137 mmol/L (136-145)
[2019-04-06 12:14] LABS: Abs Immature Grans 0.01 k/cumm (0.0-0.09); Absolute Basophil Count 0.02 k/cumm (0.0-0.2); Absolute Eosinophil Count 0.03 k/cumm (0.0-0.7); Absolute Lymphocyte Count 1.13 k/cumm (1.2-3.4); Absolute Monocyte Count 0.24 k/cumm (0.11-0.7); Absolute Neutrophil Count 6.26 k/cumm (1.2-6.7); Basophils % 0.3; Eosinophils % 0.4; HCT 32.5 % (36.0-46.0); HGB 10.8 g/dL (12.0-15.5); Immature Grans % 0.1; Lymphocytes % 14.7; Mean Corp. HGB Concentration 33.2 g/dL (32.0-36.0); Mean Corpuscular Hemoglobin 29.6 pg (27.0-33.0); Mean Platelet Volume 10.2 fL (8.0-11.0); Monocytes % 3.1; Neutrophils % 81.4; Platelet Count 209 x1000/uL (130-400); RBC 3.65 m/cumm (4.00-5.20); RBC Distribution Width 13.4 % (11.7-14.6); White Blood Cell Count 7.69 k/cumm (4.4-10.8)
[2019-04-06] MEDS: Nystatin POWDER 15 GM JAR TP ×2 (14:15→19:28)
--- NOTE | 2019-04-06 15:00 | PDOC.CMIN ---
- If Service Date Differs Date of service: 04/06/19 Time of Service: 15:00 Care Management Initial Assess REASON FOR HOSPITALIZATION:: Right breast mastitis with fever PAST MEDICAL HISTORY/PAST SURGICAL HISTORY:: Metastatic breast cancer. HTN (hypertension). Infiltrating ductal carcinoma of breast, stage 3. Deep venous thrombosis of upper extremity. Surgical Mastectomy PREVIOUS FUNCTIONAL STATUS/SOCIAL/FAMILY SUPPORTS:: Mabel lives in a basement apartment in her [facility] in [place], [place]. She has one daughter that lives in [place] who she talks to several times a day. 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 Mabel is indepedent with transportation, ADL's and all care. CURRENT FUNCTIONAL STATUS:: Mabel is resting when CM enters the room. Minimal questions will follow up with patient in the morning. ADVANCE DIRECTIVES:: None on file - would like to complete Has patient been provided with information about the portal?: Yes Did the patient sign up for the portal?: No (already enrolled) CODE STATUS:: Full Code INSURANCE COVERAGE / FINANCIAL ISSUES:: Medicaid CURRENT HOME/COMMUNITY SERVICES/EQUIPMENT:: [facility] ([facility]) PRIMARY CARE PHYSICIAN:: Aries Kuhn NP POTENTIAL DISCHARGE NEEDS:: Follow up with primary care as directed. PATIENT/FAMILY EDUCATION NEEDS:: Discharge education, limitations and follow up plan of care including ask me three and self management. ANTICIPATED BARRIERS TO DISCHARGE:: None TRANSPORTATION:: Via private car self at discharge PLAN:: Mabel is being treated for cellulitis of the right breast with IV antibioitcs. She will be discharged home when medically ready per provider. CM to continue to provide support ongoing discharge planning and disposition.
--- NOTE | 2019-04-06 15:03 | INITIAL_ITS ---
- If Service Date Differs Date of service: 04/06/19 Time of Service: 15:00 Care Management Initial Assess REASON FOR HOSPITALIZATION:: Right breast mastitis with fever PAST MEDICAL HISTORY/PAST SURGICAL HISTORY:: Metastatic breast cancer. HTN (hypertension). Infiltrating ductal carcinoma of breast, stage 3. Deep venous thrombosis of upper extremity. Surgical Mastectomy PREVIOUS FUNCTIONAL STATUS/SOCIAL/FAMILY SUPPORTS:: Mabel lives in a basement apartment in her [facility] in [place], [place]. She has one daughter that lives in [place] who she talks to several times a day. 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 Mabel is indepedent with transportation, ADL's and all care. CURRENT FUNCTIONAL STATUS:: Mabel is resting when CM enters the room. Minimal questions will follow up with patient in the morning. ADVANCE DIRECTIVES:: None on file - would like to complete Has patient been provided with information about the portal?: Yes Did the patient sign up for the portal?: No (already enrolled) CODE STATUS:: Full Code INSURANCE COVERAGE / FINANCIAL ISSUES:: Medicaid CURRENT HOME/COMMUNITY SERVICES/EQUIPMENT:: [facility] ([facility]) PRIMARY CARE PHYSICIAN:: Aries Kuhn NP POTENTIAL DISCHARGE NEEDS:: Follow up with primary care as directed. PATIENT/FAMILY EDUCATION NEEDS:: Discharge education, limitations and follow up plan of care including ask me three and self management. ANTICIPATED BARRIERS TO DISCHARGE:: None TRANSPORTATION:: Via private car self at discharge PLAN:: Mabel is being treated for cellulitis of the right breast with IV antibioitcs. She will be discharged home when medically ready per provider. CM to continue to provide support ongoing discharge planning and disposition.
[2019-04-07] MEDS: Heparin 5,000 UNITS/ML VIAL 5000 UNITS SC ×3 (00:24→15:50)
[2019-04-07] MEDS: Lactated Ringers 1,000 ML 200 ML IV ×2 (01:42→06:25)
[2019-04-07 03:24] VITALS: BP 133/81; PULSE 70; RESP 18; TEMP 36.2; O2SAT 96
[2019-04-07 07:05] VITALS: BP 119/71; PULSE 64; RESP 18; TEMP 36.7; O2SAT 97
[2019-04-07 07:23] LABS: Absolute Basophil Count 0.01 k/cumm (0.0-0.2); Absolute Eosinophil Count 0.13 k/cumm (0.0-0.7); Absolute Lymphocyte Count 1.09 k/cumm (1.2-3.4); Absolute Monocyte Count 0.17 k/cumm (0.11-0.7); Absolute Neutrophil Count 2.83 k/cumm (1.2-6.7); Basophils % 0.2; Eosinophils % 3.1; HGB 11.5 g/dL (12.0-15.5); Lymphocytes % 25.8; Mean Corp. HGB Concentration 32.9 g/dL (32.0-36.0); Mean Corpuscular Hemoglobin 29.3 pg (27.0-33.0); Mean Corpuscular Volume 89.1 fL (80-95); Mean Platelet Volume 10.3 fL (8.0-11.0); Neutrophils % 66.9; Platelet Count 211 x1000/uL (130-400); RBC 3.93 m/cumm (4.00-5.20); RBC Distribution Width 13.1 % (11.7-14.6); White Blood Cell Count 4.23 k/cumm (4.4-10.8)
[2019-04-07 07:39] LABS: Anion Gap 8.9 mmol/L (3-11); BUN 14 mg/dL (7-18); CO2 25.1 mmol/L (21.0-32.0); CREATININE 1.43 mg/dL (0.55-1.02); Calcium 8.3 mg/dL (8.5-10.1); Chloride 108 mmol/L (98-107); Estimated GFR 37.56 (mL/min/1.73m2); Glucose 95 mg/dL (70-100); Magnesium 2.1 mg/dL (1.8-2.4); Potassium 4.4 mmol/L (3.5-5.1); Sodium 142 mmol/L (136-145)
[2019-04-07] MEDS: Losartan 50 MG TAB PO (08:21)
[2019-04-07] MEDS: Magnesium Lactate-SR 84 MG TABCR PO ×2 (08:21→19:36)
[2019-04-07] MEDS: Calcium 600mg/Vit D 200U TAB 1 TAB PO (08:21)
[2019-04-07] MEDS: Cetirizine 10 MG TAB PO (08:22)
[2019-04-07] MEDS: Ibuprofen 600 MG TAB PO (08:22)
--- NOTE | 2019-04-07 09:25 | PGE_ITS ---
Date of Service Date of service: 04/07/19 Time of Service: 09:25 Assessment and Plan (1) Mastitis, acute: Start date: 04/07/19 Start time: 09:52 Current visit: Yes Status: Acute Minimal improvement since yesterday morning. Warm to touch, no exudate. Vancomycin added to and ancef switched to rocephin IV. Repeat blood cultures pending. (2) Dehydration: Start date: 04/07/19 Start time: 09:55 Current visit: Yes Status: Acute Acute on Chronic MARINA from dehydration improving. Creatinine 1.43 today. [facility] (3) Infiltrating ductal carcinoma of right breast, stage 3: Start date: 04/07/19 Start time: 09:56 Current visit: Yes Status: Chronic Patient may have metastatic disease into her left lung though there is a history from the patient that at first it was thought this was a primary lung cancer. She does continue to smoke. She will continue outpatient treatment for this problem. (4) Mass of lower lobe of left lung: Start date: 04/07/19 Start time: 09:56 Current visit: Yes Status: Chronic Left lower lobe mass appears to be increasing by most recent imaging in the ED on 4th april. This needs follow-up as an outpatient. It is not symptomatic at this time. (5) HTN (hypertension): Start date: 04/07/19 Start time: 09:57 Current visit: Yes Status: Chronic Controlled at this time. Continue home dose of losartan at this time. (6) DVT prophylaxis: Start date: 04/07/19 Start time: 09:57 Current visit: Yes Status: Acute Heparin subcu Subjective Patient reports: other (Feeling discouraged.) Interval history since last seen: Mrs. Ward is feeling discouraged today. She was hoping to go home, however blood cultures grew streptococcus Agalactiea. Her wound has not improved since yesterday. Antibiotics have been changed to vancomycin and rocephin. Repeat blood cultures pending. Afebrile with a normal WBC. Continue to monitor. Denies, Chest pain, SOB, N/V/D. Exam Const General: cooperative, healthy appearing and no acute distress HENTX Head: normal to inspection Resp Effort & Inspection: normal respiratory effort and able to speak in complete sentences Auscultation: clear to auscultation bilaterally Cardio Jugular venous pressure: no JVD Palpation: normal PMI Rate: regular rate Rhythm: regular rhythm Heart Sounds: S1 normal and S2 normal GI Inspection: normal to inspection Palpation: soft Auscultation: normal bowel sounds Skin General skin exam: erythema Other: Erythema to right breast under axillary extending to right upper and mid back. NO open areas, warm to touch. Neuro General: alert, awake and oriented x3 Extrem General: normal to inspection Objective Objective Clinical Data: Abnormal lab results 04/06/19 04/06/19 04/07/19 Range/Units 11:40 11:40 06:55 WBC (4.4-10.8) k/cumm RBC 3.65 L (4.00-5.20) m/cumm Hgb 10.8 L (12.0-15.5) g/dL Hct 32.5 L (36.0-46.0) % Absolute Lymphocytes 1.13 L (1.2-3.4) k/cumm Chloride 108 H (98-107) mmol/L Creatinine 1.67 H 1.43 H (0.55-1.02) mg/dL Calcium 8.0 L 8.3 L (8.5-10.1) mg/dL 04/07/19 Range/Units 06:55 WBC 4.23 L D (4.4-10.8) k/cumm RBC 3.93 L (4.00-5.20) m/cumm Hgb 11.5 L (12.0-15.5) g/dL Hct 35.0 L (36.0-46.0) % Absolute Lymphocytes 1.09 L (1.2-3.4) k/cumm Chloride (98-107) mmol/L Creatinine (0.55-1.02) mg/dL Calcium (8.5-10.1) mg/dL Vital Signs Temperature 36.2 C L 04/07/19 03:24 Temperature Source Tympanic 04/07/19 03:24 Pulse 70 04/07/19 03:24 Pulse Rhythm Regular 04/06/19 19:30 Respiratory Rate 18 04/07/19 03:24 Respiratory Effort Non-Labored 04/06/19 19:30 Respiratory Depth Normal 04/06/19 19:30 Respiratory Pattern Normal 04/06/19 19:30 Blood Pressure 133/81 04/07/19 03:24 Blood Pressure Position Supine 04/05/19 23:13 Pulse Oximetry 96 04/07/19 03:24 Oxygen Delivery Method Room Air 04/07/19 03:24 Oxygen Flow Rate 0 04/07/19 03:24 Pain Level 6 04/06/19 03:11 Comment 04/05/19 23:13 Intake & Output 04/06/19 04/06/19 04/07/19 11:59 23:59 11:59 Intake Total 2350 / 4930.000 2580.000 / 4930.000 2553.333 / 2553.333 Balance 2350 / 4930.000 2580.000 / 4930.000 2553.333 / 2553.333 Weight 111.8 kg 112 kg Intake: IV 1960 / 4060.000 2100.000 / 4060.000 2553.333 / 2553.333 Oral 390 / 870 480 / 870 Other: Urine Appearance Clear Comment pt voids in the toilet independently denies any urinary issues. no urine assessed at this time Voiding Methods Toilet Toilet Laboratory Results WBC 4.23 k/cumm (4.4-10.8) L D 04/07/19 06:55 RBC 3.93 m/cumm (4.00-5.20) L 04/07/19 06:55 Hgb 11.5 g/dL (12.0-15.5) L 04/07/19 06:55 Hct 35.0 % (36.0-46.0) L 04/07/19 06:55 MCV 89.1 fL (80-95) 04/07/19 06:55 MCH 29.3 pg (27.0-33.0) 04/07/19 06:55 MCHC 32.9 g/dL (32.0-36.0) 04/07/19 06:55 RDW 13.1 % (11.7-14.6) 04/07/19 06:55 Plt Count 211 x1000/uL (130-400) 04/07/19 06:55 MPV 10.3 fL (8.0-11.0) 04/07/19 06:55 Immature Gran % 0.0 04/07/19 06:55 Neutrophils % 66.9 04/07/19 06:55 Lymphocytes % 25.8 04/07/19 06:55 Monocytes % 4.0 04/07/19 06:55 Eosinophils % 3.1 04/07/19 06:55 Basophils % 0.2 04/07/19 06:55 Absolute Neutrophils 2.83 k/cumm (1.2-6.7) 04/07/19 06:55 Absolute Lymphocytes 1.09 k/cumm (1.2-3.4) L 04/07/19 06:55 Absolute Monocytes 0.17 k/cumm (0.11-0.7) 04/07/19 06:55 Absolute Eosinophils 0.13 k/cumm (0.0-0.7) 04/07/19 06:55 Absolute Basophils 0.01 k/cumm (0.0-0.2) 04/07/19 06:55 Sodium 142 mmol/L (136-145) 04/07/19 06:55 Potassium 4.4 mmol/L (3.5-5.1) 04/07/19 06:55 Chloride 108 mmol/L (98-107) H 04/07/19 06:55 Carbon Dioxide 25.1 mmol/L (21.0-32.0) 04/07/19 06:55 Anion Gap 8.9 mmol/L (3-11) 04/07/19 06:55 BUN 14 mg/dL (7-18) 04/07/19 06:55 Creatinine 1.43 mg/dL (0.55-1.02) H 04/07/19 06:55 Estimated GFR/1.73 m2 37.56 (mL/min/1.73m2) 04/07/19 06:55 Glucose 95 mg/dL (70-100) 04/07/19 06:55 Lactate 1.5 mmol/l (0.6-1.4) H 04/05/19 00:29 Calcium 8.3 mg/dL (8.5-10.1) L 04/07/19 06:55 Magnesium 2.1 mg/dL (1.8-2.4) 04/07/19 06:55 Troponin I < 0.05 ng/mL (0.00-0.06) 04/05/19 00:29
[2019-04-07] MEDS: Nystatin POWDER 15 GM JAR TP ×2 (09:52→19:36)
[2019-04-07] MEDS: VANCOMYCIN 1,500 MG in Normal Saline 250 ML 166.667 MG IVPB (09:52)
[2019-04-07] MEDS: cefTRIAXone 2 GM/50 ML BAG IVPB (11:32)
--- NOTE | 2019-04-07 15:36 | PDOC.CMPRO ---
- If Service Date Differs Date of service: 04/07/19 Time of Service: 15:36 Care Management Progress Note S/O: Mabel is more alert today and engaged in assessment. She sits up in the bed states she is feeling better. She reports her right breast is less tender. She was able to meet with CLIENT OPERATIONS MANAGER today and review diagnosis she states she now understands why she is in the hospital. 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 She reports that she only started taking the oral chemotherapy drug this week and is concerned about continuing treatment given her current condition. She states her last dose was on . She sees her oncologists regular she states the plan now is to continue with oral chemotherapy and injections for three months then reassess the breast and lung cancer. She would like to complete her advance directive she states the one she has is old and she needs to update it. CM to provide forms for her to review. Mabel is being treated Strep B with positive blood cultures she remains on IV antibiotics at this time. A: Mabel is a 58 year old female admitted with right breast mastitis and positive blood cultures, with a history of breast and lung cancer, and chemotherapy. p: Mabel will be discharged when she is medically ready per provider. She will not need additional services, consider referral to palliative care as outpatient. She will complete her advance directives on this admission. Mabel will transport herself home at time of discharge and follow up with primary care and oncology as directed.
[2019-04-07 15:39] VITALS: BP 128/81; PULSE 60; RESP 18; TEMP 36.4; O2SAT 96
--- NOTE | 2019-04-07 15:46 | CMPROGNOTE_ITS ---
- If Service Date Differs Date of service: 04/07/19 Time of Service: 15:36 Care Management Progress Note S/O: Mabel is more alert today and engaged in assessment. She sits up in the bed states she is feeling better. She reports her right breast is less tender. She was able to meet with BOOK TRIMMER today and review diagnosis she states she now understands why she is in the hospital. 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 She reports that she only started taking the oral chemotherapy drug this week and is concerned about continuing treatment given her current condition. She states her last dose was on . She sees her oncologists regular she states the plan now is to continue with oral chemotherapy and injections for three months then reassess the breast and lung cancer. She would like to complete her advance directive she states the one she has is old and she needs to update it. CM to provide forms for her to review. Mabel is being treated Strep B with positive blood cultures she remains on IV antibiotics at this time. A: Mabel is a 58 year old female admitted with right breast mastitis and positive blood cultures, with a history of breast and lung cancer, and chemotherapy. p: Mabel will be discharged when she is medically ready per provider. She will not need additional services, consider referral to palliative care as outpatient. She will complete her advance directives on this admission. Mabel will transport herself home at time of discharge and follow up with primary care and oncology as directed.
[2019-04-07 19:24] VITALS: BP 128/81; PULSE 60; RESP 18; TEMP 36.4; O2SAT 97
[2019-04-07 21:13] VITALS: O2SAT 97
[2019-04-07 23:35] VITALS: BP 135/79; PULSE 68; RESP 18; TEMP 36.6; O2SAT 96
[2019-04-08] VITALS (9 sets, daily range): BP systolic 109–146; BP diastolic 61–88; PULSE 59–68; RESP 16–20; TEMP 36.5–36.9; O2SAT 96–99
[2019-04-08] MEDS: Heparin 5,000 UNITS/ML VIAL 5000 UNITS SC ×4 (00:07→23:35)
[2019-04-08] MEDS: Calcium 600mg/Vit D 200U TAB 1 TAB PO (07:41)
[2019-04-08] MEDS: Cetirizine 10 MG TAB PO (07:41)
[2019-04-08] MEDS: Magnesium Lactate-SR 84 MG TABCR PO ×2 (07:41→19:38)
[2019-04-08] MEDS: Losartan 50 MG TAB PO (07:42)
[2019-04-08] MEDS: Nystatin POWDER 15 GM JAR TP ×3 (07:52→19:38)
[2019-04-08 09:30] LABS: Abs Immature Grans 0.01 k/cumm (0.0-0.09); Absolute Basophil Count 0.02 k/cumm (0.0-0.2); Absolute Lymphocyte Count 0.94 k/cumm (1.2-3.4); Absolute Neutrophil Count 1.46 k/cumm (1.2-6.7); Basophils % 0.7; Eosinophils % 7.3; HCT 34.8 % (36.0-46.0); HGB 11.2 g/dL (12.0-15.5); Immature Grans % 0.4; Lymphocytes % 34.4; Mean Corp. HGB Concentration 32.2 g/dL (32.0-36.0); Mean Corpuscular Hemoglobin 28.9 pg (27.0-33.0); Mean Corpuscular Volume 89.9 fL (80-95); Mean Platelet Volume 10.5 fL (8.0-11.0); Monocytes % 3.7; Neutrophils % 53.5; Platelet Count 234 x1000/uL (130-400); RBC 3.87 m/cumm (4.00-5.20); RBC Distribution Width 13.1 % (11.7-14.6); White Blood Cell Count 2.73 k/cumm (4.4-10.8)
[2019-04-08 09:43] LABS: BUN 17 mg/dL (7-18); CREATININE 1.45 mg/dL (0.55-1.02); Chloride 107 mmol/L (98-107); Estimated GFR 36.96 (mL/min/1.73m2); Glucose 115 mg/dL (70-100); Magnesium 2.5 mg/dL (1.8-2.4); Potassium 4.5 mmol/L (3.5-5.1); Sodium 141 mmol/L (136-145)
[2019-04-08] MEDS: cefTRIAXone 2 GM/50 ML BAG IVPB (09:44)
[2019-04-08] MEDS: Normal Saline Flush 10 ML SYR IVP (09:45)
--- NOTE | 2019-04-08 09:49 | PDOC.CMPRO ---
Care Management Progress Note S/O-Met with Mabel today. She is lying in bed, very engaged in discussion re plans. States she is already feeling better. CM asked mud jack nozzleman to assist with advance directive completion. No change to overall plan. A-58 yo woman admitted with R breast mastitis and positive blood cultures, with H/O breast and lung Ca and chemotherapy. P-d/c home as per MD, no services anticipated. She will drive self home.
[2019-04-08 10:10] LABS: Diff Comment Agrees w/ Instrument; RBC Morphology Normal
--- NOTE | 2019-04-08 12:02 | PHARADMIT ---
Admission Pharmacy Clinical Review RIGHT MASTITIS w/FEVER, DEHYDRATION Code Status Full Code Current Weight Wgt- 116.8 kg Renally Cleared and Narrow Therapeutic Index Meds CrCl~ 39.1 mL/min Meds-OK QTc Value / Action Taken QTc-414 NA BP Control, Fever BP-142/88 Tmac-38.2C Electrolytes reviewed Na- 141 K+4.5 Mag- 2.5 DVT Prophylaxis Heparin SC Opiate Usage / Scheduled Bowel Regimen Ordered No Yes Plt/SCr for Heparin / Enoxaparin Plts- 234 SCr- 1.45 INR for Warfarin na H/H stable, WBC/Bands H&H- 11.2/34.8 WBC- 2.73 Antibiotic appropriateness Rocephin Cultures and Sensitivities Blood-No growth Surgical ABX d/c within 24 hr NA DM control / Insulin Dosing BG- 115 Heart Failure (Check EF%) (NILA's, B-Block, Diuretics) Losartan, IV to PO Switch No Home Meds Reviewed Yes Home Meds Not Ordered Leonele Comments Clint- Jennifer,
--- NOTE | 2019-04-08 12:43 | W.PM.PROGNOT ---
Date of Service Date of service: 04/08/19 Time of Service: 12:43 Assessment and Plan (1) Mastitis, acute: Start date: 04/08/19 Start time: 13:01 Current visit: Yes Status: Acute On day 2 ceftriaxone with vast improvement. Erythema below nipple line and under right breast as opposed to above nipple line 2 days ago. Back and side have receded. Second set of BC NGTD (2) Dehydration: Start date: 04/08/19 Start time: 13:04 Current visit: Yes Status: Acute Resolved. Closer to baseline, continue to monitor. (3) Acute on chronic kidney failure: Start date: 04/08/19 Start time: 13:05 Current visit: Yes Status: Acute Seems to have resolved. Baseline creatinine appears to be around 1.37 as high as 1.4 continue to monitor and replete as neccessary. (4) Infiltrating ductal carcinoma of right breast, stage 3: Start date: 04/08/19 Start time: 13:32 Current visit: Yes Status: Chronic Patient may have metastatic disease into her left lung though there is a history from the patient that at first it was thought this was a primary lung cancer. She does continue to smoke. She will continue outpatient treatment for this problem. (5) Mass of lower lobe of left lung: Start date: 04/08/19 Start time: 13:32 Current visit: Yes Status: Chronic Left lower lobe mass appears to be increasing by most recent imaging in the ED on 04 of April. This needs follow-up as an outpatient. It is not symptomatic at this time. (6) HTN (hypertension): Start date: 04/08/19 Start time: 13:32 Current visit: Yes Status: Chronic Controlled at this time. Continue home dose of losartan at this time. (7) DVT prophylaxis: Start date: 04/08/19 Start time: 13:32 Current visit: Yes Status: Acute Heparin subcu Subjective Patient reports: feels better Interval history since last seen: Mrs. Ward is feeling better, looks to be in better spirits today. Erythema is receding, patient states she can now be touched without pain. Erythema is receding now under right breast and areas to the back are improving. Repeat BC no growth to day. Denies CP, SOB, n/v/d. Exam Const General: cooperative, healthy appearing and no acute distress HENMT Head: normal to inspection Resp Effort & Inspection: normal respiratory effort and able to speak in complete sentences Auscultation: clear to auscultation bilaterally Cardio Jugular venous pressure: no JVD Palpation: normal PMI Rate: regular rate Rhythm: regular rhythm Heart Sounds: S1 normal and S2 normal GI Inspection: normal to inspection Palpation: soft Auscultation: normal bowel sounds Skin General skin exam: erythema Other: erythema now under right breast and to back areas with less heat and redness. Improving. Neuro General: alert, awake and oriented x3 Extrem General: normal to inspection Objective Objective Clinical Data: Abnormal lab results 04/08/19 04/08/19 Range/Units 09:20 09:20 WBC 2.73 L D (4.4-10.8) k/cumm RBC 3.87 L (4.00-5.20) m/cumm Hgb 11.2 L (12.0-15.5) g/dL Hct 34.8 L (36.0-46.0) % Absolute Lymphocytes 0.94 L (1.2-3.4) k/cumm Absolute Monocytes 0.10 L (0.11-0.7) k/cumm Creatinine 1.45 H (0.55-1.02) mg/dL Glucose 115 H (70-100) mg/dL Magnesium 2.5 H (1.8-2.4) mg/dL Vital Signs Temperature 36.9 C 04/08/19 07:00 Temperature Source Tympanic 04/08/19 07:00 Pulse 61 04/08/19 07:00 Pulse Rhythm Regular 04/08/19 07:29 Respiratory Rate 17 04/08/19 07:00 Respiratory Effort Non-Labored 04/08/19 07:29 Respiratory Depth Normal 04/08/19 07:29 Respiratory Pattern Normal 04/08/19 07:29 Blood Pressure 142/88 H 04/08/19 07:00 Blood Pressure Position Supine 04/05/19 23:13 Pulse Oximetry 97 04/08/19 09:11 Oxygen Delivery Method Room Air 04/08/19 09:11 Oxygen Flow Rate 0 04/08/19 09:11 Pain Level 0 04/08/19 07:00 Comment 04/08/19 03:30 Intake & Output 04/07/19 04/08/19 04/08/19 23:59 11:59 23:59 Intake Total 770 / 3933.333 700 / 700 Balance 770 / 3933.333 700 / 700 Weight 116.8 kg Intake: IV 50 / 2853.333 60 / 60 Oral 720 / 1080 640 / 640 Other: Comment she took her self to the bathroom Pt voiding ad ananda in toilet; no hat. Urine not seen at this time; pt denies sx. Voiding Methods Toilet Toilet Laboratory Results WBC 2.73 k/cumm (4.4-10.8) L D 04/08/19 09:20 RBC 3.87 m/cumm (4.00-5.20) L 04/08/19 09:20 Hgb 11.2 g/dL (12.0-15.5) L 04/08/19 09:20 Hct 34.8 % (36.0-46.0) L 04/08/19 09:20 MCV 89.9 fL (80-95) 04/08/19 09:20 MCH 28.9 pg (27.0-33.0) 04/08/19 09:20 MCHC 32.2 g/dL (32.0-36.0) 04/08/19 09:20 RDW 13.1 % (11.7-14.6) 04/08/19 09:20 Plt Count 234 x1000/uL (130-400) 04/08/19 09:20 MPV 10.5 fL (8.0-11.0) 04/08/19 09:20 Immature Gran % 0.4 04/08/19 09:20 Neutrophils % 53.5 04/08/19 09:20 Lymphocytes % 34.4 04/08/19 09:20 Monocytes % 3.7 04/08/19 09:20 Eosinophils % 7.3 04/08/19 09:20 Basophils % 0.7 04/08/19 09:20 Absolute Neutrophils 1.46 k/cumm (1.2-6.7) 04/08/19 09:20 Absolute Lymphocytes 0.94 k/cumm (1.2-3.4) L 04/08/19 09:20 Absolute Monocytes 0.10 k/cumm (0.11-0.7) L 04/08/19 09:20 Absolute Eosinophils 0.20 k/cumm (0.0-0.7) 04/08/19 09:20 Absolute Basophils 0.02 k/cumm (0.0-0.2) 04/08/19 09:20 Differential Comment Agrees w/ instrument 04/08/19 09:20 RBC Morphology Normal 04/08/19 09:20 Sodium 141 mmol/L (136-145) 04/08/19 09:20 Potassium 4.5 mmol/L (3.5-5.1) 04/08/19 09:20 Chloride 107 mmol/L (98-107) 04/08/19 09:20 Carbon Dioxide 27.0 mmol/L (21.0-32.0) 04/08/19 09:20 Anion Gap 7.0 mmol/L (3-11) 04/08/19 09:20 BUN 17 mg/dL (7-18) 04/08/19 09:20 Creatinine 1.45 mg/dL (0.55-1.02) H 04/08/19 09:20 Estimated GFR/1.73 m2 36.96 (mL/min/1.73m2) 04/08/19 09:20 Glucose 115 mg/dL (70-100) H 04/08/19 09:20 Lactate 1.5 mmol/l (0.6-1.4) H 04/05/19 00:29 Calcium 9.0 mg/dL (8.5-10.1) 04/08/19 09:20 Magnesium 2.5 mg/dL (1.8-2.4) H 04/08/19 09:20 Troponin I < 0.05 ng/mL (0.00-0.06) 04/05/19 00:29
--- NOTE | 2019-04-08 13:17 | CMPROGNOTE_ITS ---
Care Management Progress Note S/O-Met with Mabel today. She is lying in bed, very engaged in discussion re plans. States she is already feeling better. CM asked associate professor physician to assist with advance directive completion. No change to overall plan. A-58 yo woman admitted with R breast mastitis and positive blood cultures, with H/O breast and lung Ca and chemotherapy. P-d/c home as per MD, no services anticipated. She will drive self home.
[2019-04-08 13:58] LABS: C-Reactive Protein 8.65 mg/dL (0.0-0.3)
--- NOTE | 2019-04-08 15:03 | CHAPLAIN ---
I was asked by Care Management to complete a new Advance Directive with Mabel. She wanted to list her daughter as her agent. Her brother was listed in the past, but has since . We completed the form. She has the original and a copy for her daughter Ngoc in [place], sent a copy to her PCP Aries Rodriguez, a copy to the [place] Registry and scanned a copy into the [facility] records. Mabel said she is independent and doesn't rely on anyone else, and she's raised her daughter that way. She does have some friends in town she said, but they are currently on vacation. Mabel had plans to go visit her daughter for Ngoc's graduation, but those plans are on hold now. I plan to visit again tomorrow.
[2019-04-09] VITALS (7 sets, daily range): BP systolic 120–143; BP diastolic 63–84; PULSE 56–67; RESP 16–18; TEMP 35.8–36.7; O2SAT 95–100
[2019-04-09 07:47] LABS: Abs Immature Grans 0.01 k/cumm (0.0-0.09); Absolute Basophil Count 0.04 k/cumm (0.0-0.2); Absolute Eosinophil Count 0.16 k/cumm (0.0-0.7); Absolute Lymphocyte Count 1.12 k/cumm (1.2-3.4); Absolute Monocyte Count 0.15 k/cumm (0.11-0.7); Absolute Neutrophil Count 1.32 k/cumm (1.2-6.7); Basophils % 1.4; Eosinophils % 5.7; HCT 34.4 % (36.0-46.0); HGB 11.1 g/dL (12.0-15.5); Immature Grans % 0.4; Mean Corp. HGB Concentration 32.3 g/dL (32.0-36.0); Mean Corpuscular Hemoglobin 28.8 pg (27.0-33.0); Mean Corpuscular Volume 89.4 fL (80-95); Mean Platelet Volume 10.4 fL (8.0-11.0); Monocytes % 5.4; Neutrophils % 47.1; Platelet Count 265 x1000/uL (130-400); RBC 3.85 m/cumm (4.00-5.20); RBC Distribution Width 12.9 % (11.7-14.6)
[2019-04-09] MEDS: Losartan 50 MG TAB PO (07:58)
[2019-04-09] MEDS: Calcium 600mg/Vit D 200U TAB 1 TAB PO (07:58)
[2019-04-09] MEDS: Cetirizine 10 MG TAB PO (07:58)
[2019-04-09] MEDS: Magnesium Lactate-SR 84 MG TABCR PO ×2 (07:58→19:47)
[2019-04-09] MEDS: Heparin 5,000 UNITS/ML VIAL 5000 UNITS SC ×3 (08:00→23:32)
[2019-04-09 08:16] LABS: Diff Comment Diff Reviewed; RBC Morphology Normal
[2019-04-09 08:22] LABS: Anion Gap 8.2 mmol/L (3-11); BUN 15 mg/dL (7-18); CO2 25.8 mmol/L (21.0-32.0); CREATININE 1.24 mg/dL (0.55-1.02); Calcium 8.4 mg/dL (8.5-10.1); Chloride 108 mmol/L (98-107); Estimated GFR 44.27 (mL/min/1.73m2); Glucose 95 mg/dL (70-100); Magnesium 2.3 mg/dL (1.8-2.4); Potassium 4.5 mmol/L (3.5-5.1); Sodium 142 mmol/L (136-145)
[2019-04-09] MEDS: Nystatin POWDER 15 GM JAR TP ×3 (10:14→19:47)
[2019-04-09] MEDS: cefTRIAXone 2 GM/50 ML BAG IVPB (10:27)
[2019-04-09] MEDS: Normal Saline Flush 10 ML SYR IVP ×2 (10:28→19:47)
[2019-04-09] MEDS: Normal Saline 500 ML IV (10:30)
--- NOTE | 2019-04-09 10:47 | PDOC.CMPRO ---
Care Management Progress Note S/O-Met with Mabel this AM. She is very anxious for discharge today but has not seen MD yet. Advised her that she should discuss further with MD. Possible change from IV to po Abx today. No change to overall plan. A-58 yo woman admitted with R breast mastitis and positive blood cultures, with H/O breast and lung Ca and chemotherapy. P-d/c home as per MD, no services anticipated. She will self transport home.
--- NOTE | 2019-04-09 14:13 | CHAPLAIN ---
Mabel was sitting in her chair watching tv when I visited. The lights were off and the shade was pulled down. Mabel said it was ok to come in, but I'm not very good company right now. She said she met with the Hospitalist CONTEMPORARY OR MODERN DANCER who told her that her antibiotics would be changed from IV to oral, but Mabel said she doesn't know when that will be. She stressed that she needs to be discharged to get back to work to get paid and cover bills. Mabel lives by herself and is very independent. She has support from her daughter, and in touch with her daughter daily, but her daughter lives in [place], where she is a student. 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 She states that she knows her health is important, but then mentioned some bills she needs to be able pay. She seemed most concern about not knowing what the plan is for her oral antibiotics, when she'll start them and if she needs to be inpatient to continue receiving them. Along with this, she knows she also needs to restart her chemo meds soon and I'm not looking forward to that, she said. In situations like this, Mabel said she usually feels sorry for myself for awhile and then I get over it. There is no one nearby she wanted to contact, and she'll talk with her daughter soon.
--- NOTE | 2019-04-09 17:50 | W.PM.PROGNOT ---
Date of Service Date of service: 04/09/19 Time of Service: 17:50 Assessment and Plan (1) Cellulitis: Current visit: Yes Status: Acute To the right breast and right side of her back. Erythema improving and receding from ink border. Initially started on Ancef x1 day, currently on day #3 Ceftriaxone. Repeat blood cultures with no growth at 48 hours. Transition to oral antibiotics, likely for discharge tomorrow. (2) Acute on chronic kidney failure: Current visit: Yes Status: Acute Creatinine better than baseline today. Continue to monitor. (3) Dehydration: Current visit: Yes Status: Acute Resolved. (4) HTN (hypertension): Current visit: Yes Status: Chronic Blood pressure within acceptable range. Continue Losartan. (5) Infiltrating ductal carcinoma of right breast, stage 3: Current visit: Yes Status: Chronic Possible metastatic disease with left lung mass noted on recent CT. Continues to smoke. Continue to children's counselor on quitting. Will continue to follow up with oncology as outpatient. (6) Mass of lower lobe of left lung: Current visit: Yes Status: Chronic As above. (7) DVT prophylaxis: Current visit: Yes Status: Acute Subcutaneous heparin. (8) Discharge planning issues: Current visit: Yes Status: Acute She is a FULL code. This case was discussed with Dr. Crook who is in agreement. Subjective Interval history since last seen: Ms Ward reports feeling better, she is no longer experiencing pain to her right breast and back, she reports pruritus. She reports improvement in the erythema. She denies fevers, chills, shortness of breath, coughing, wheezing, chest pain/pressure, palpitations. She is eating and drinking and tolerating her diet. She denies abdominal pain, nausea, or vomiting. She reports post nasal drip, she will try NS nasal spray. Repeat blood cultures have yielded no growth at 48 hours. She is eager for discharge home. Exam Narrative Exam Narrative: General: middle aged female, sitting up in the chair in no acute distress. Answers questions appropriately. HEENT: normocephalic, atraumatic, pupils equal and round, EOMI, mucous membranes moist. Neck: supple, no JVD. Respiratory: respirations even and unlabored, lung sounds clear bilaterally. Cardiovascular: heart with regular rate and rhythm, no murmur appreciated. GI: abdomen soft, nontender on palpation, normal bowel sounds, nondistended. Extremities: well perfused, no cyanosis or edema. Skin: Fading erythema under right breast, blotchy appearance to right-side of back. No drainage, no warmth to touch. Objective Objective Clinical Data: Abnormal lab results 04/09/19 04/09/19 Range/Units 07:24 07:24 WBC 2.80 L (4.4-10.8) k/cumm RBC 3.85 L (4.00-5.20) m/cumm Hgb 11.1 L (12.0-15.5) g/dL Hct 34.4 L (36.0-46.0) % Absolute Lymphocytes 1.12 L (1.2-3.4) k/cumm Chloride 108 H (98-107) mmol/L Creatinine 1.24 H (0.55-1.02) mg/dL Calcium 8.4 L (8.5-10.1) mg/dL Vital Signs Temperature 36.6 C 04/09/19 15:43 Temperature Source Tympanic 04/09/19 15:43 Pulse 62 04/09/19 15:43 Pulse Rhythm Regular 04/09/19 08:07 Respiratory Rate 18 04/09/19 15:43 Respiratory Effort Non-Labored 04/09/19 08:07 Respiratory Depth Normal 04/09/19 08:07 Respiratory Pattern Normal 04/09/19 08:07 Blood Pressure 143/84 H 04/09/19 15:43 Blood Pressure Position Supine 04/05/19 23:13 Pulse Oximetry 100 04/09/19 15:43 Oxygen Delivery Method Room Air 04/09/19 15:43 Oxygen Flow Rate 0 04/09/19 15:43 Pain Level 0 04/09/19 15:43 Comment 04/08/19 03:30 Intake & Output 04/08/19 04/09/19 04/09/19 23:59 11:59 23:59 Intake Total 2059 1013.333 / 1253.333 240 / 1253.333 Balance 2059 1013.333 / 1253.333 240 / 1253.333 Weight 114.9 kg Intake: IV 103.333 / 103.333 Oral 1999 910 / 1150 240 / 1150 Other: Urine Appearance Clear Comment Pt voiding ad ananda in toilet; no hat. Urine not seen at this time; pt denies sx. Voiding Methods Toilet Toilet Laboratory Results WBC 2.80 k/cumm (4.4-10.8) L 04/09/19 07:24 RBC 3.85 m/cumm (4.00-5.20) L 04/09/19 07:24 Hgb 11.1 g/dL (12.0-15.5) L 04/09/19 07:24 Hct 34.4 % (36.0-46.0) L 04/09/19 07:24 MCV 89.4 fL (80-95) 04/09/19 07:24 MCH 28.8 pg (27.0-33.0) 04/09/19 07:24 MCHC 32.3 g/dL (32.0-36.0) 04/09/19 07:24 RDW 12.9 % (11.7-14.6) 04/09/19 07:24 Plt Count 265 x1000/uL (130-400) 04/09/19 07:24 MPV 10.4 fL (8.0-11.0) 04/09/19 07:24 Immature Gran % 0.4 04/09/19 07:24 Neutrophils % 47.1 04/09/19 07:24 Lymphocytes % 40.0 04/09/19 07:24 Monocytes % 5.4 04/09/19 07:24 Eosinophils % 5.7 04/09/19 07:24 Basophils % 1.4 04/09/19 07:24 Absolute Neutrophils 1.32 k/cumm (1.2-6.7) 04/09/19 07:24 Absolute Lymphocytes 1.12 k/cumm (1.2-3.4) L 04/09/19 07:24 Absolute Monocytes 0.15 k/cumm (0.11-0.7) 04/09/19 07:24 Absolute Eosinophils 0.16 k/cumm (0.0-0.7) 04/09/19 07:24 Absolute Basophils 0.04 k/cumm (0.0-0.2) 04/09/19 07:24 Differential Comment Diff reviewed 04/09/19 07:24 RBC Morphology Normal 04/09/19 07:24 Sodium 142 mmol/L (136-145) 04/09/19 07:24 Potassium 4.5 mmol/L (3.5-5.1) 04/09/19 07:24 Chloride 108 mmol/L (98-107) H 04/09/19 07:24 Carbon Dioxide 25.8 mmol/L (21.0-32.0) 04/09/19 07:24 Anion Gap 8.2 mmol/L (3-11) 04/09/19 07:24 BUN 15 mg/dL (7-18) 04/09/19 07:24 Creatinine 1.24 mg/dL (0.55-1.02) H 04/09/19 07:24 Estimated GFR/1.73 m2 44.27 (mL/min/1.73m2) 04/09/19 07:24 Glucose 95 mg/dL (70-100) 04/09/19 07:24 Lactate 1.5 mmol/l (0.6-1.4) H 04/05/19 00:29 Calcium 8.4 mg/dL (8.5-10.1) L 04/09/19 07:24 Magnesium 2.3 mg/dL (1.8-2.4) 04/09/19 07:24 Troponin I < 0.05 ng/mL (0.00-0.06) 04/05/19 00:29 C-Reactive Protein 8.65 mg/dL (0.0-0.3) H 04/08/19 09:20 Vancomycin Trough Cancelled 04/09/19 16:30
[2019-04-09] MEDS: Cephalexin 500 MG CAP PO ×2 (18:32→23:32)
[2019-04-10 03:20] VITALS: BP 121/69; PULSE 57; RESP 17; TEMP 36.5; O2SAT 98
[2019-04-10] MEDS: Cephalexin 500 MG CAP PO ×2 (05:58→12:19)
[2019-04-10 07:26] LABS: Abs Immature Grans 0.01 k/cumm (0.0-0.09); Absolute Basophil Count 0.02 k/cumm (0.0-0.2); Absolute Eosinophil Count 0.11 k/cumm (0.0-0.7); Absolute Lymphocyte Count 1.08 k/cumm (1.2-3.4); Absolute Monocyte Count 0.19 k/cumm (0.11-0.7); Absolute Neutrophil Count 1.54 k/cumm (1.2-6.7); Basophils % 0.7; Eosinophils % 3.7; HCT 36.2 % (36.0-46.0); HGB 11.8 g/dL (12.0-15.5); Immature Grans % 0.3; Lymphocytes % 36.6; Mean Corp. HGB Concentration 32.6 g/dL (32.0-36.0); Mean Corpuscular Hemoglobin 28.9 pg (27.0-33.0); Mean Corpuscular Volume 88.5 fL (80-95); Mean Platelet Volume 10.3 fL (8.0-11.0); Monocytes % 6.4; Neutrophils % 52.3; Platelet Count 287 x1000/uL (130-400); RBC 4.09 m/cumm (4.00-5.20); White Blood Cell Count 2.95 k/cumm (4.4-10.8)
[2019-04-10 07:45] VITALS: BP 125/63; PULSE 67; RESP 16; TEMP 36.7; O2SAT 96
[2019-04-10 07:51] LABS: Anion Gap 9.8 mmol/L (3-11); BUN 15 mg/dL (7-18); CO2 25.2 mmol/L (21.0-32.0); CREATININE 1.29 mg/dL (0.55-1.02); Calcium 8.7 mg/dL (8.5-10.1); Chloride 106 mmol/L (98-107); Glucose 93 mg/dL (70-100); Magnesium 2.2 mg/dL (1.8-2.4); Potassium 4.6 mmol/L (3.5-5.1); Sodium 141 mmol/L (136-145)
[2019-04-10] MEDS: Losartan 50 MG TAB PO (10:14)
[2019-04-10] MEDS: Nystatin POWDER 15 GM JAR TP (10:14)
[2019-04-10] MEDS: Calcium 600mg/Vit D 200U TAB 1 TAB PO (10:14)
[2019-04-10] MEDS: Magnesium Lactate-SR 84 MG TABCR PO (10:14)
[2019-04-10] MEDS: Cetirizine 10 MG TAB PO (10:14)
[2019-04-10] MEDS: Heparin 5,000 UNITS/ML VIAL 5000 UNITS SC (10:15)
--- NOTE | 2019-04-10 12:14 | DSE_ITS ---
Date of service: 04/10/19 Time of Service: 12:14 DS: Diagnosis Discharge Diagnosis (1) Cellulitis: Status: Acute (2) Acute on chronic kidney failure: Status: Acute (3) Dehydration: Status: Acute (4) HTN (hypertension): Status: Chronic (5) Infiltrating ductal carcinoma of right breast, stage 3: Status: Chronic (6) Mass of lower lobe of left lung: Status: Chronic (7) Bacteremia due to group B Streptococcus: Status: Acute Discharge Plan Disposition Patient Disposition: HOME Condition: Improving Discharge Details Chief Complaint: Fever Reason For Visit: RIGHT MASTITIS WITH FEVER, DEHYDRATION Admit Date/Time: 04/06/19 02:08 Admit Provider: Silvio Hoffman Attending Provider: Silvio Hoffman Primary Care Provider: Aries Kuhn ED Provider: Wood Welch [facility] Hospital Course Hospital Course: Mabel Ward is a very pleasant 58 year old female with a past medical history significant for right breast cancer with lumpectomy and partial mastectomy and lymph node dissection sentinel node biopsy and recent left lower lobe lung mass- metastatic disease versus primary lung cancer, currently on chemotherapy, HTN, CKD who presented to the ED on 04/06/19 with fever, chills, lightheadedness and erythema, swelling and pain to her right breast. She was diagnosed in the ED with cellulitis versus mastitis of the right breast. The erythema extended laterally across her axilla and to her right upper back. She was started initially on IV ancef and admitted to the med/surg floor. Her antibiotics were transitioned to IV ceftriaxone. Her initial blood cultures grew group B strep. She received 4 days of IV antibiotics. Her cellulitis improved. She continues to have faint erythema that has receded from the border, it is no longer painful, she reports pruritus. She transitioned to oral Keflex the day prior to her discharge and remained stable with no fever and no increase in white blood cell count. Her case was discussed with infectious disease at [facility] who agree with transitioning to oral antibiotics in the setting of known source for Group B strep bacteremia with rapid resolution of skin findings and fevers. He recommended 10 days of therapy. Her repeat blood cultures yielded no growth at 72 hours. She will receive 10 days of antibiotics from the negative blood cultures. Her CRP was elevated to 8.65, she will have follow up CRP added to her scheduled labs on 04/15/19. She was noted to have MARINA on CKD on admission, she received IV fluids and her creatinine improved to better than her baseline. Her creatinine remains better than baseline at 1.29 at the time of discharge. She will follow up with her PCP as scheduled. She will follow up with oncology as scheduled. She has labs due 04/15/19, a CRP will be added to her lab draw. She will complete a full 10 day course of keflex for cellulitis with Group B strep bacteremia. Home Meds and New Rx's Prescriptions: New cephalexin 500 mg Capsule 500 mg PO Q6H Qty: 28 RF: 0 nystatin 100,000 unit/gram Powder 15 g topical TID Qty: 0 RF: 0 sodium chloride [Deep Sea Nasal] 0.65 % Aerosol,[place] NS QID PRN PRNQty: 0 RF: 0 Continued losartan 50 mg Tablet 50 mg PO DAILY RF: 0 cetirizine 10 mg Tablet 10 mg PO DAILY RF: 0 fluticasone propionate 50 mcg/actuation [place],Suspension 1 spray INTRANASAL DAILY RF: 0 Calcium 600 + D(3) 600 mg calcium- 200 unit Capsule 1 cap PO DAILY RF: 0 Ibrance 125 mg Capsule 125 mg PO HS RF: 0 Discharge Instructions Instructions: Cellulitis (DC), Bacteremia (DC) Additional Instructions: Take antibiotics until they are gone. Follow up with labs on 04/15/19 as scheduled. Follow up with your PCP as scheduled. Follow up with oncology as scheduled. Take care! Stand Alone Forms: Nursing Discharge Form Referrals: Ronald Rao [ [facility] STAFF PHYSICIAN] - 04/23/19 8:50 am (Please arrive 15 minutes before appointment) Activity:: Activity as Tolerated Equipment/Supplies:: No Equipment Needed Diet:: As Tolerated Discharge Orders Discharge Orders: Discharge Order (Routine); Ordered 04/10/19 Ordered By: Roxy Cintron Other Ambulatory Orders: C-Reactive Protein (Routine) Timeframe: 20190415 Facility: [facility] - Location: Laboratory Outpatient Ordered By: Roxy Cintron Exam Narrative Exam Narrative: General: middle aged female, sitting up in the chair in no acute distress. Answers questions appropriately. HEENT: normocephalic, atraumatic, pupils equal and round, EOMI, mucous membranes moist. Neck: supple, no JVD. Respiratory: respirations even and unlabored, lung sounds clear bilaterally. Cardiovascular: heart with regular rate and rhythm, no murmur appreciated. GI: abdomen soft, nontender on palpation, normal bowel sounds, nondistended. Extremities: well perfused, no cyanosis or edema. Skin: Fading erythema under right breast, blotchy appearance across right axilla and to right-side of back. No drainage, no warmth to touch. DS: Data Vitals/I&O Vitals and I&O: Vital Signs Temperature 36.7 C 04/10/19 07:45 Temperature Source Tympanic 04/10/19 07:45 Pulse 67 04/10/19 07:45 Pulse Rhythm Regular 04/09/19 19:54 Respiratory Rate 16 04/10/19 07:45 Respiratory Effort Non-Labored 04/10/19 07:22 Respiratory Depth Normal 04/10/19 07:22 Respiratory Pattern Normal 04/10/19 07:22 Blood Pressure 125/63 04/10/19 07:45 Blood Pressure Position Supine 04/05/19 23:13 Pulse Oximetry 96 04/10/19 07:45 Oxygen Delivery Method Room Air 04/10/19 07:45 Oxygen Flow Rate 0 04/10/19 07:45 Pain Level 0 04/10/19 07:45 Comment 04/08/19 03:30 Intake & Output 04/09/19 04/10/19 04/10/19 23:59 11:59 23:59 Intake Total 250 / 1263.333 400 / 400 Balance 250 / 1263.333 400 / 400 Weight 113.6 kg Intake: IV / 113.333 Oral 240 / 1150 400 / 400 Other: Comment voided in toilet un able to get amount Stool Size Small Stool Characteristics Soft Liquid Brown Voiding Methods Toilet Labs on day of discharge: Labs from last 24 hours 04/10/19 04/10/19 04/09/19 06:45 06:45 16:30 WBC 2.95 L RBC 4.09 Hgb 11.8 L Hct 36.2 MCV 88.5 MCH 28.9 MCHC 32.6 RDW 13.0 Plt Count 287 MPV 10.3 Immature Gran % 0.3 Neutrophils % 52.3 Lymphocytes % 36.6 Monocytes % 6.4 Eosinophils % 3.7 Basophils % 0.7 Absolute Neutrophils 1.54 Absolute Lymphocytes 1.08 L Absolute Monocytes 0.19 Absolute Eosinophils 0.11 Absolute Basophils 0.02 Sodium 141 Potassium 4.6 Chloride 106 Carbon Dioxide 25.2 Anion Gap 9.8 BUN 15 Creatinine 1.29 H Estimated GFR/1.73 m2 42.30 Glucose 93 Calcium 8.7 Magnesium 2.2 Vancomycin Trough Cancelled Preliminary micro results at discharge 04/07/19 09:20 Blood Culture - Preliminary Blood NO GROWTH 72 HOURS 04/07/19 09:10 Blood Culture - Preliminary Blood NO GROWTH 72 HOURS PFSH Medical History Metastatic breast cancer (Acute) HTN (hypertension) (Chronic) Infiltrating ductal carcinoma of breast, stage 3 (Chronic) Deep venous thrombosis of upper extremity (Inactive) Surgical History Breast, Mastectomy (Inactive) Family History Mother No problems noted. Father No problems noted. Social History Smoking/Tobacco Use Status: Current every day Tobacco Type: cigarettes Alcohol Intake: never Drug use: Never Do you feel safe at home: Yes Do you feel safe in your relationship?: Yes
--- NOTE | 2019-04-10 16:19 | PDOC.CMDIS ---
LACE Index Scoring Tool - Questions: Length of Stay (in days): 4 - 6 Acuity (Admit via E.D.?): Yes Comorbidities: Any Tumor E.D. Visits: 2 - Answers: Total Score: 11 Risk of Readmission: High Risk Care Management Discharge Reason for Hospitalization: Right breast mastitis with fever Discharge Plan: Mabel will be discharged when she is medically ready per provider. No additional services anticipated at this time. Mabel will transport herself home at time of discharge and follow up with primary care and oncology as directed. Patient/Family Education Needs: Review discharge instructions, discuss Ask Me Three.
== END 2019-04-10 13:36 | disposition home or self-care (01) | DRG 600 ==
LOC: ER 04-06 02:29 → MS 04-06 02:40
PROVIDERS: Admitting Provider Family Medicine; Emergency Provider Emergency Medicine; PCP Nurse Practitioner Family; Visit Provider Internal Medicine
DX: N61.0 Mastitis without abscess (principal); N17.9 Acute kidney failure, unspecified; R78.81 Bacteremia; C78.02 Secondary malignant neoplasm of left lung; C34.32 Malignant neoplasm of lower lobe, left bronchus or lung; E86.0 Dehydration; N18.9 Chronic kidney disease, unspecified; I12.9 Hypertensive chronic kidney disease with stage 1 through stage 4 chronic kidney disease, or unspecified chronic kidney disease; B95.1 Streptococcus, group B, as the cause of diseases classified elsewhere; C50.911 Malignant neoplasm of unspecified site of right female breast; Z90.11 Acquired absence of right breast and nipple; F17.210 Nicotine dependence, cigarettes, uncomplicated
CPT/HCPCS: 36410; 36415; 80048; 87040; 87077; 96365; 96366; 99223; 99232; 99233; 99239; 99285; 80202; 83605; 83735; 84484; 85025; 86140; 99284; J0690; J1644

== ENCOUNTER 2019-04-15 09:22 | Outpatient (CLI) | payer BC, OTHER, MEDICAID, SELFPAY ==
[2019-04-15 10:07] LABS: Abs Immature Grans 0.02 k/cumm (0.0-0.09); Absolute Basophil Count 0.04 k/cumm (0.0-0.2); Absolute Eosinophil Count 0.13 k/cumm (0.0-0.7); Absolute Monocyte Count 0.55 k/cumm (0.11-0.7); Absolute Neutrophil Count 2.11 k/cumm (1.2-6.7); Basophils % 0.9; Eosinophils % 2.8; HCT 38.1 % (36.0-46.0); HGB 12.7 g/dL (12.0-15.5); Immature Grans % 0.4; Lymphocytes % 38.7; Mean Corp. HGB Concentration 33.3 g/dL (32.0-36.0); Mean Corpuscular Hemoglobin 29.3 pg (27.0-33.0); Mean Corpuscular Volume 87.8 fL (80-95); Mean Platelet Volume 9.2 fL (8.0-11.0); Monocytes % 11.8; Neutrophils % 45.4; Platelet Count 350 x1000/uL (130-400); RBC 4.34 m/cumm (4.00-5.20); RBC Distribution Width 13.5 % (11.7-14.6); White Blood Cell Count 4.65 k/cumm (4.4-10.8)
[2019-04-15 10:21] LABS: ALT 25 U/L (12-78); AST 14 U/L (15-37); Albumin 3.6 g/dL (3.4-5.0); Alkaline Phosphatase 83 U/L (46-116); BUN 17 mg/dL (7-18); Bilirubin, Total 0.4 mg/dL (0.2-1.0); C-Reactive Protein 0.48 mg/dL (0.0-0.3); CREATININE 1.42 mg/dL (0.55-1.02); Calcium 9.2 mg/dL (8.5-10.1); Chloride 102 mmol/L (98-107); Estimated GFR 37.86 (mL/min/1.73m2); Glucose 96 mg/dL (70-100); Potassium 4.7 mmol/L (3.5-5.1); Sodium 136 mmol/L (136-145); Total Protein 7.3 g/dL (6.4-8.2)
[2019-04-16 11:55] LABS: Cancer Ag 15-3 8.2 U/mL (<30)
== END 2019-04-15 09:42 ==
PROVIDERS: PCP Nurse Practitioner Family; Visit Provider Internal Medicine
DX: L03.90 Cellulitis, unspecified (principal); C50.411 Malignant neoplasm of upper-outer quadrant of right female breast; Z17.0 Estrogen receptor positive status [ER+]
CPT/HCPCS: 36415; 80053; 86304; 85025; 86140; 86300

== ENCOUNTER 2019-05-01 10:44 | Outpatient (CLI) | payer OTHER, MEDICAID, SELFPAY ==
[2019-05-01 11:11] LABS: Absolute Basophil Count 0.02 k/cumm (0.0-0.2); Absolute Eosinophil Count 0.05 k/cumm (0.0-0.7); Absolute Lymphocyte Count 1.17 k/cumm (1.2-3.4); Absolute Monocyte Count 0.13 k/cumm (0.11-0.7); Absolute Neutrophil Count 1.07 k/cumm (1.2-6.7); Basophils % 0.8; HCT 34.6 % (36.0-46.0); HGB 11.7 g/dL (12.0-15.5); Mean Corp. HGB Concentration 33.8 g/dL (32.0-36.0); Mean Corpuscular Hemoglobin 30.2 pg (27.0-33.0); Mean Corpuscular Volume 89.4 fL (80-95); Mean Platelet Volume 9.1 fL (8.0-11.0); Monocytes % 5.3; Neutrophils % 43.9; RBC 3.87 m/cumm (4.00-5.20); RBC Distribution Width 14.3 % (11.7-14.6); White Blood Cell Count 2.44 k/cumm (4.4-10.8)
[2019-05-01 11:31] LABS: Diff Comment Agrees w/ Instrument; Platelet Count 233 x1000/uL (130-400); RBC Morphology Normal
[2019-05-01 12:01] LABS: ALT 24 U/L (12-78); AST 13 U/L (15-37); Albumin 3.5 g/dL (3.4-5.0); Alkaline Phosphatase 79 U/L (46-116); Anion Gap 10.3 mmol/L (3-11); BUN 15 mg/dL (7-18); Bilirubin, Total 0.3 mg/dL (0.2-1.0); CO2 23.7 mmol/L (21.0-32.0); CREATININE 1.47 mg/dL (0.55-1.02); Calcium 8.5 mg/dL (8.5-10.1); Chloride 104 mmol/L (98-107); Estimated GFR 36.38 (mL/min/1.73m2); Glucose 86 mg/dL (70-100); Potassium 4.6 mmol/L (3.5-5.1); Sodium 138 mmol/L (136-145); Total Protein 6.5 g/dL (6.4-8.2)
== END 2019-05-01 11:04 ==
PROVIDERS: PCP Nurse Practitioner Family; Visit Provider Internal Medicine
DX: C50.919 Malignant neoplasm of unspecified site of unspecified female breast (principal)
CPT/HCPCS: 36415; 80053; 85025

== ENCOUNTER 2019-05-13 01:18 | Outpatient (CLI) | payer OTHER, MEDICAID, SELFPAY ==
[2019-05-13 08:12] LABS: Abs Immature Grans 0.01 k/cumm (0.0-0.09); Absolute Basophil Count 0.06 k/cumm (0.0-0.2); Absolute Eosinophil Count 0.03 k/cumm (0.0-0.7); Absolute Lymphocyte Count 0.98 k/cumm (1.2-3.4); Absolute Monocyte Count 0.41 k/cumm (0.11-0.7); Absolute Neutrophil Count 1.53 k/cumm (1.2-6.7); HCT 34.8 % (36.0-46.0); HGB 11.5 g/dL (12.0-15.5); Immature Grans % 0.3; Lymphocytes % 32.5; Mean Corpuscular Hemoglobin 30.7 pg (27.0-33.0); Mean Corpuscular Volume 92.8 fL (80-95); Mean Platelet Volume 8.9 fL (8.0-11.0); Monocytes % 13.6; Neutrophils % 50.6; Platelet Count 191 x1000/uL (130-400); RBC 3.75 m/cumm (4.00-5.20); RBC Distribution Width 16.6 % (11.7-14.6); White Blood Cell Count 3.02 k/cumm (4.4-10.8)
[2019-05-13 09:57] LABS: ALT 21 U/L (12-78); AST 10 U/L (15-37); Albumin 3.6 g/dL (3.4-5.0); Alkaline Phosphatase 68 U/L (46-116); Anion Gap 7.6 mmol/L (3-11); BUN 18 mg/dL (7-18); Bilirubin, Total 0.2 mg/dL (0.2-1.0); CO2 27.4 mmol/L (21.0-32.0); CREATININE 1.44 mg/dL (0.55-1.02); Calcium 8.7 mg/dL (8.5-10.1); Chloride 106 mmol/L (98-107); Estimated GFR 37.26 (mL/min/1.73m2); Glucose 93 mg/dL (70-100); Potassium 4.6 mmol/L (3.5-5.1); Sodium 141 mmol/L (136-145); Total Protein 6.6 g/dL (6.4-8.2)
[2019-05-14 15:42] LABS: Cancer Ag 15-3 10 U/mL (<30)
== END 2019-05-13 01:38 ==
PROVIDERS: PCP Nurse Practitioner Family; Visit Provider Internal Medicine
DX: C50.411 Malignant neoplasm of upper-outer quadrant of right female breast (principal); Z17.0 Estrogen receptor positive status [ER+]
CPT/HCPCS: 36415; 80053; 86304; 85025; 86300

== ENCOUNTER 2019-05-28 08:43 | Outpatient (CLI) | payer OTHER, MEDICAID, SELFPAY ==
[2019-05-28 09:01] LABS: Abs Immature Grans 0.01 k/cumm (0.0-0.09); Absolute Basophil Count 0.07 k/cumm (0.0-0.2); Absolute Eosinophil Count 0.07 k/cumm (0.0-0.7); Absolute Neutrophil Count 1.56 k/cumm (1.2-6.7); Basophils % 2.1; Eosinophils % 2.1; HCT 35.4 % (36.0-46.0); HGB 12.1 g/dL (12.0-15.5); Immature Grans % 0.3; Lymphocytes % 42.3; Mean Corp. HGB Concentration 34.2 g/dL (32.0-36.0); Mean Corpuscular Volume 93.7 fL (80-95); Mean Platelet Volume 9.6 fL (8.0-11.0); Neutrophils % 47.2; Platelet Count 336 x1000/uL (130-400); RBC 3.78 m/cumm (4.00-5.20); RBC Distribution Width 17.1 % (11.7-14.6); White Blood Cell Count 3.31 k/cumm (4.4-10.8)
[2019-05-28 09:22] LABS: ALT 25 U/L (14-59); AST 15 U/L (15-37); Albumin 3.8 g/dL (3.4-5.0); Alkaline Phosphatase 70 U/L (46-116); Anion Gap 9.2 mmol/L (3-11); BUN 16 mg/dL (7-18); Bilirubin, Total 0.3 mg/dL (0.2-1.0); CO2 24.8 mmol/L (21.0-32.0); CREATININE 1.72 mg/dL (0.55-1.02); Calcium 9.1 mg/dL (8.5-10.1); Chloride 106 mmol/L (98-107); Estimated GFR 30.35 (mL/min/1.73m2); Glucose 97 mg/dL (70-100); Potassium 4.7 mmol/L (3.5-5.1); Sodium 140 mmol/L (136-145); Total Protein 7.3 g/dL (6.4-8.2)
== END 2019-05-28 09:03 ==
PROVIDERS: PCP Nurse Practitioner Family; Visit Provider Internal Medicine
DX: C50.919 Malignant neoplasm of unspecified site of unspecified female breast (principal)
CPT/HCPCS: 36415; 80053; 85025

== ENCOUNTER 2019-06-11 00:45 | Outpatient (CLI) | payer OTHER, MEDICAID, SELFPAY ==
[2019-06-11 09:33] LABS: Absolute Basophil Count 0.06 k/cumm (0.0-0.2); Absolute Eosinophil Count 0.07 k/cumm (0.0-0.7); Absolute Lymphocyte Count 1.32 k/cumm (1.2-3.4); Absolute Monocyte Count 0.41 k/cumm (0.11-0.7); Absolute Neutrophil Count 1.36 k/cumm (1.2-6.7); Basophils % 1.9; Eosinophils % 2.2; HCT 36.2 % (36.0-46.0); HGB 12.2 g/dL (12.0-15.5); Mean Corp. HGB Concentration 33.7 g/dL (32.0-36.0); Mean Corpuscular Hemoglobin 32.5 pg (27.0-33.0); Mean Corpuscular Volume 96.5 fL (80-95); Mean Platelet Volume 9.3 fL (8.0-11.0); Monocytes % 12.7; Neutrophils % 42.2; Platelet Count 242 x1000/uL (130-400); RBC 3.75 m/cumm (4.00-5.20); White Blood Cell Count 3.22 k/cumm (4.4-10.8)
[2019-06-11 09:48] LABS: ALT 19 U/L (14-59); AST 13 U/L (15-37); Albumin 3.8 g/dL (3.4-5.0); Alkaline Phosphatase 71 U/L (46-116); Anion Gap 8.6 mmol/L (3-11); BUN 10 mg/dL (7-18); Bilirubin, Total 0.3 mg/dL (0.2-1.0); CO2 27.4 mmol/L (21.0-32.0); CREATININE 1.69 mg/dL (0.55-1.02); Calcium 9.1 mg/dL (8.5-10.1); Chloride 104 mmol/L (98-107); Estimated GFR 30.97 (mL/min/1.73m2); Glucose 109 mg/dL (70-100); Potassium 4.3 mmol/L (3.5-5.1); Sodium 140 mmol/L (136-145); Total Protein 7.4 g/dL (6.4-8.2)
[2019-06-11 09:54] LABS: Diff Comment Agrees w/ Instrument; RBC Morphology Normal
[2019-06-12 12:34] LABS: Cancer Ag 15-3 12 U/mL (<30)
== END 2019-06-11 01:05 ==
PROVIDERS: PCP Nurse Practitioner Family; Visit Provider Internal Medicine
DX: C50.411 Malignant neoplasm of upper-outer quadrant of right female breast; Z17.0 Estrogen receptor positive status [ER+]
CPT/HCPCS: 36415; 80053; 86304; 85025; 86300

== ENCOUNTER 2019-06-24 01:01 | Outpatient (CLI) | payer OTHER, MEDICAID, SELFPAY ==
[2019-06-24 09:47] LABS: Absolute Basophil Count 0.07 k/cumm (0.0-0.2); Absolute Eosinophil Count 0.09 k/cumm (0.0-0.7); Absolute Lymphocyte Count 0.81 k/cumm (1.2-3.4); Absolute Neutrophil Count 1.16 k/cumm (1.2-6.7); Basophils % 3.1; HCT 33.2 % (36.0-46.0); HGB 11.4 g/dL (12.0-15.5); Lymphocytes % 36.3; Mean Corp. HGB Concentration 34.3 g/dL (32.0-36.0); Mean Corpuscular Hemoglobin 33.5 pg (27.0-33.0); Mean Corpuscular Volume 97.6 fL (80-95); Mean Platelet Volume 8.9 fL (8.0-11.0); Monocytes % 4.5; Neutrophils % 52.1; Platelet Count 272 x1000/uL (130-400); RBC Distribution Width 17.5 % (11.7-14.6); White Blood Cell Count 2.23 k/cumm (4.4-10.8)
[2019-06-24 09:56] LABS: ALT 24 U/L (14-59); AST 19 U/L (15-37); Albumin 3.7 g/dL (3.4-5.0); Alkaline Phosphatase 72 U/L (46-116); Anion Gap 8.2 mmol/L (3-11); BUN 14 mg/dL (7-18); Bilirubin, Total 0.5 mg/dL (0.2-1.0); CO2 26.8 mmol/L (21.0-32.0); CREATININE 1.62 mg/dL (0.55-1.02); Calcium 8.6 mg/dL (8.5-10.1); Chloride 106 mmol/L (98-107); Estimated GFR 32.52 (mL/min/1.73m2); Glucose 97 mg/dL (70-100); Potassium 4.3 mmol/L (3.5-5.1); Sodium 141 mmol/L (136-145); Total Protein 7.2 g/dL (6.4-8.2)
[2019-06-24 10:13] LABS: Anisocytosis 2+; Diff Comment Agrees w/ Instrument; Hypochromasia 1+; Macrocytosis 1+; Polychromasia Present
[2019-06-25 12:50] LABS: Cancer Ag 15-3 12 U/mL (<30)
== END 2019-06-24 01:21 ==
PROVIDERS: PCP Nurse Practitioner Family; Visit Provider Internal Medicine
DX: C50.411 Malignant neoplasm of upper-outer quadrant of right female breast (principal); Z17.0 Estrogen receptor positive status [ER+]
CPT/HCPCS: 36415; 80053; 86304; 85025; 86300

== ENCOUNTER 2019-07-04 02:39 | Outpatient (CLI) | payer OTHER, SELFPAY ==
--- NOTE | 2019-07-04 09:11 | DI.CT_ITS ---
EXAM: CT CHEST/ABD/PEL W CLINICAL HISTORY: METASTATIC BREAST CA, C50.919, RESPONSE TO THERAPY. TECHNIQUE: COMPARISON: CHEST WITH CONTRAST from 12/07/2012 CHEST WITH CONTRAST from 04/05/2013 CHEST WITH CONTRAST from 01/15/2014 CT CHEST LUNG CANCER SCREEN from 01/16/2019 CT HEAD WO from 04/04/2019 CT CHEST WO from 04/04/2019 CT CHEST/ABD/PEL W from 07/04/2019 FINDINGS: CT examination chest abdomen and pelvis was performed with bolus infusion of 100 cc of Omnipaque 350 and ingestion of dilute barium. Previously described left lower lobe lung mass is again seen and has increased in size now measuring about 6 x 3 cm in diameter. There is a 2 cm in diameter infrahilar new left lower lobe lung mass. No gross mediastinal or hilar adenopathy. Tracheobronchial tree appe ars intact. No other focal intrapulmonary mass or consolidation seen. Please the liver and spleen are unremarkable in appearance. Pancreas appears intact. Gallbladder an d bile ducts are CT normal. Adrenals and kidneys appear normal. No abdominal or pelvic adenopathy s een. Urinary bladder has an irregular thickened wall, this is a nonspecific finding but may be seen with CIS status or bladder carcinoma. [employer] structures intact for age. No free fluid identified in th e pelvis. There is a lytic lesion of the L5 vertebral body with a sclerotic rim. This measures up to about 2 c m in diameter. No additional bony abnormality seen. The findings are nonspecific and the possibilit y of metastatic disease is not excluded. Correlation with lumbosacral spine MRI including post contr ast imaging recommended. IMPRESSION: Interval increase in size of left lower lobe lung mass consistent with carcinoma. New 2 cm infrahila r mass. No evidence of intra-abdominal metastatic disease. Indeterminate L5 vertebral body lesion, lumbosacral spine MRI suggested to evaluate the possibility of metastatic disease.
[2019-07-04 10:34] LABS: Absolute Basophil Count 0.07 k/cumm (0.0-0.2); Absolute Eosinophil Count 0.07 k/cumm (0.0-0.7); Absolute Lymphocyte Count 1.07 k/cumm (1.2-3.4); Absolute Monocyte Count 0.18 k/cumm (0.11-0.7); Absolute Neutrophil Count 1.21 k/cumm (1.2-6.7); Basophils % 2.7; Eosinophils % 2.7; HCT 32.2 % (36.0-46.0); HGB 11.2 g/dL (12.0-15.5); Lymphocytes % 41.2; Mean Corp. HGB Concentration 34.8 g/dL (32.0-36.0); Mean Corpuscular Hemoglobin 34.5 pg (27.0-33.0); Mean Corpuscular Volume 99.1 fL (80-95); Mean Platelet Volume 9.2 fL (8.0-11.0); Monocytes % 6.9; Neutrophils % 46.5; Platelet Count 268 x1000/uL (130-400); RBC 3.25 m/cumm (4.00-5.20); RBC Distribution Width 16.9 % (11.7-14.6)
[2019-07-04 10:45] LABS: ALT 28 U/L (14-59); AST 15 U/L (15-37); Albumin 3.7 g/dL (3.4-5.0); Alkaline Phosphatase 81 U/L (46-116); Anion Gap 9.9 mmol/L (3-11); BUN 12 mg/dL (7-18); Bilirubin, Total 0.6 mg/dL (0.2-1.0); CO2 25.1 mmol/L (21.0-32.0); CREATININE 1.32 mg/dL (0.55-1.02); Calcium 8.6 mg/dL (8.5-10.1); Chloride 106 mmol/L (98-107); Estimated GFR 41.19 (mL/min/1.73m2); Glucose 90 mg/dL (70-100); Sodium 141 mmol/L (136-145); Total Protein 7.2 g/dL (6.4-8.2)
[2019-07-04 10:55] LABS: Diff Comment Agrees w/ Instrument; Polychromasia Present
[2019-07-04] MEDS: Omnipaque 350 MG/ML 100 ML BTL IJ (11:10)
[2019-07-05 16:04] LABS: Cancer Ag 15-3 14 U/mL (<30)
== END 2019-07-04 02:59 ==
PROVIDERS: Internal Medicine; PCP Nurse Practitioner Family; Visit Provider Registered Nurse Oncology
DX: C50.411 Malignant neoplasm of upper-outer quadrant of right female breast; Z17.0 Estrogen receptor positive status [ER+]; Z92.21 Personal history of antineoplastic chemotherapy; C78.02 Secondary malignant neoplasm of left lung; I26.99 Other pulmonary embolism without acute cor pulmonale
CPT/HCPCS: 36415; 74177; 80053; 86304; 71260; 85025; 86300; J3490

== ENCOUNTER 2019-07-29 02:06 | Outpatient (CLI) | payer OTHER, MEDICAID, SELFPAY ==
[2019-07-29 12:09] LABS: ALT 31 U/L (14-59); AST 15 U/L (15-37); Alkaline Phosphatase 84 U/L (46-116); Anion Gap 7.8 mmol/L (3-11); BUN 17 mg/dL (7-18); Bilirubin, Total 0.2 mg/dL (0.2-1.0); CO2 28.2 mmol/L (21.0-32.0); Calcium 9.3 mg/dL (8.5-10.1); Chloride 103 mmol/L (98-107); Glucose 163 mg/dL (70-100); Potassium 4.1 mmol/L (3.5-5.1); Sodium 139 mmol/L (136-145); Total Protein 7.6 g/dL (6.4-8.2)
[2019-07-29 12:23] LABS: Abs Immature Grans 0.01 k/cumm (0.0-0.09); Absolute Basophil Count 0.19 k/cumm (0.0-0.2); Absolute Eosinophil Count 0.54 k/cumm (0.0-0.7); Absolute Lymphocyte Count 2.21 k/cumm (1.2-3.4); Absolute Monocyte Count 0.57 k/cumm (0.11-0.7); Absolute Neutrophil Count 2.31 k/cumm (1.2-6.7); Basophils % 3.3; Eosinophils % 9.3; HCT 40.3 % (36.0-46.0); HGB 13.7 g/dL (12.0-15.5); Immature Grans % 0.2; Lymphocytes % 37.9; Mean Corpuscular Hemoglobin 34.3 pg (27.0-33.0); Mean Corpuscular Volume 100.8 fL (80-95); Mean Platelet Volume 9.2 fL (8.0-11.0); Monocytes % 9.8; Neutrophils % 39.5; Platelet Count 418 x1000/uL (130-400); RBC Distribution Width 13.7 % (11.7-14.6); White Blood Cell Count 5.83 k/cumm (4.4-10.8)
[2019-07-30 13:05] LABS: Cancer Ag 15-3 13 U/mL (<30)
== END 2019-07-29 02:26 ==
PROVIDERS: PCP Nurse Practitioner Family; Visit Provider Internal Medicine
DX: C50.411 Malignant neoplasm of upper-outer quadrant of right female breast; Z17.0 Estrogen receptor positive status [ER+]
CPT/HCPCS: 36415; 80053; 86304; 85025; 86300

== ENCOUNTER 2019-08-19 02:04 | Outpatient (CLI) | payer OTHER, SELFPAY ==
[2019-08-19 09:28] LABS: Abs Immature Grans 0.01 k/cumm (0.0-0.09); Absolute Basophil Count 0.08 k/cumm (0.0-0.2); Absolute Eosinophil Count 0.57 k/cumm (0.0-0.7); Absolute Lymphocyte Count 1.54 k/cumm (1.2-3.4); Absolute Monocyte Count 0.52 k/cumm (0.11-0.7); Absolute Neutrophil Count 4.02 k/cumm (1.2-6.7); Basophils % 1.2; Eosinophils % 8.5; HCT 40.2 % (36.0-46.0); HGB 13.5 g/dL (12.0-15.5); Immature Grans % 0.1; Lymphocytes % 22.8; Mean Corp. HGB Concentration 33.6 g/dL (32.0-36.0); Mean Corpuscular Hemoglobin 32.8 pg (27.0-33.0); Mean Corpuscular Volume 97.6 fL (80-95); Mean Platelet Volume 8.8 fL (8.0-11.0); Monocytes % 7.7; Neutrophils % 59.7; Platelet Count 339 x1000/uL (130-400); RBC 4.12 m/cumm (4.00-5.20); RBC Distribution Width 13.2 % (11.7-14.6); White Blood Cell Count 6.74 k/cumm (4.4-10.8)
[2019-08-19 09:31] LABS: ALT 30 U/L (14-59); AST 13 U/L (15-37); Albumin 3.7 g/dL (3.4-5.0); Alkaline Phosphatase 90 U/L (46-116); BUN 10 mg/dL (7-18); Bilirubin, Total 0.4 mg/dL (0.2-1.0); Calcium 8.3 mg/dL (8.5-10.1); Chloride 106 mmol/L (98-107); Estimated GFR 32.99 (mL/min/1.73m2); Glucose 109 mg/dL (70-100); Potassium 3.9 mmol/L (3.5-5.1); Sodium 140 mmol/L (136-145); Total Protein 7.5 g/dL (6.4-8.2)
[2019-08-20 16:42] LABS: Cancer Ag 15-3 8.7 U/mL (<30)
== END 2019-08-19 02:24 ==
PROVIDERS: PCP Nurse Practitioner Family; Visit Provider Internal Medicine
DX: C50.919 Malignant neoplasm of unspecified site of unspecified female breast (principal); C50.411 Malignant neoplasm of upper-outer quadrant of right female breast; Z17.0 Estrogen receptor positive status [ER+]
CPT/HCPCS: 36415; 80053; 86304; 85025; 86300

== ENCOUNTER 2019-08-27 13:10 | Outpatient (CLI) | payer OTHER, SELFPAY ==
[2019-08-27 13:42] LABS: Abs Immature Grans 0.02 k/cumm (0.0-0.09); Absolute Basophil Count 0.04 k/cumm (0.0-0.2); Absolute Lymphocyte Count 1.56 k/cumm (1.2-3.4); Absolute Monocyte Count 0.63 k/cumm (0.11-0.7); Absolute Neutrophil Count 4.26 k/cumm (1.2-6.7); Basophils % 0.6; Eosinophils % 9.7; HCT 38.9 % (36.0-46.0); HGB 12.7 g/dL (12.0-15.5); Immature Grans % 0.3; Lymphocytes % 21.6; Mean Corp. HGB Concentration 32.6 g/dL (32.0-36.0); Mean Corpuscular Hemoglobin 31.6 pg (27.0-33.0); Mean Corpuscular Volume 96.8 fL (80-95); Mean Platelet Volume 9.1 fL (8.0-11.0); Monocytes % 8.7; Neutrophils % 59.1; Platelet Count 369 x1000/uL (130-400); RBC 4.02 m/cumm (4.00-5.20); RBC Distribution Width 12.6 % (11.7-14.6); White Blood Cell Count 7.21 k/cumm (4.4-10.8)
[2019-08-27 14:00] LABS: ALT 23 U/L (14-59); AST 16 U/L (15-37); Albumin 3.3 g/dL (3.4-5.0); Alkaline Phosphatase 74 U/L (46-116); Amylase 86 U/L (25-115); Anion Gap 9.1 mmol/L (3-11); BUN 4 mg/dL (7-18); Bilirubin, Total 0.3 mg/dL (0.2-1.0); CO2 26.9 mmol/L (21.0-32.0); CREATININE 1.31 mg/dL (0.55-1.02); Calcium 8.4 mg/dL (8.5-10.1); Chloride 108 mmol/L (98-107); Estimated GFR 41.56 (mL/min/1.73m2); Glucose 94 mg/dL (74-106); Lipase 766 U/L (73-393); Potassium 4.1 mmol/L (3.5-5.1); Sodium 144 mmol/L (136-145); Total Protein 6.8 g/dL (6.4-8.2)
[2019-08-30 12:18] LABS: Cancer Ag 15-3 <8.0 U/mL (<30)
== END 2019-08-27 13:30 ==
PROVIDERS: PCP Nurse Practitioner Family; Visit Provider Internal Medicine
DX: C50.411 Malignant neoplasm of upper-outer quadrant of right female breast (principal); C79.51 Secondary malignant neoplasm of bone; R19.7 Diarrhea, unspecified; Z17.0 Estrogen receptor positive status [ER+]
CPT/HCPCS: 36415; 80053; 83690; 86304; 82150; 85025; 86300

== ENCOUNTER 2019-09-10 01:51 | Outpatient (CLI) | payer OTHER, SELFPAY ==
[2019-09-10 12:34] LABS: Abs Immature Grans 0.01 k/cumm (0.0-0.09); Absolute Basophil Count 0.04 k/cumm (0.0-0.2); Absolute Lymphocyte Count 1.52 k/cumm (1.2-3.4); Absolute Monocyte Count 0.48 k/cumm (0.11-0.7); Absolute Neutrophil Count 4.42 k/cumm (1.2-6.7); Basophils % 0.6; Eosinophils % 5.8; HCT 39.1 % (36.0-46.0); HGB 12.8 g/dL (12.0-15.5); Immature Grans % 0.1; Lymphocytes % 22.1; Mean Corp. HGB Concentration 32.7 g/dL (32.0-36.0); Mean Corpuscular Hemoglobin 31.4 pg (27.0-33.0); Mean Corpuscular Volume 95.8 fL (80-95); Mean Platelet Volume 9.3 fL (8.0-11.0); Neutrophils % 64.4; Platelet Count 336 x1000/uL (130-400); RBC 4.08 m/cumm (4.00-5.20); RBC Distribution Width 12.8 % (11.7-14.6); White Blood Cell Count 6.87 k/cumm (4.4-10.8)
[2019-09-10 12:41] LABS: ALT 17 U/L (14-59); AST 16 U/L (15-37); Albumin 3.6 g/dL (3.4-5.0); Alkaline Phosphatase 70 U/L (46-116); Anion Gap 8.2 mmol/L (3-11); BUN 10 mg/dL (7-18); Bilirubin, Total 0.5 mg/dL (0.2-1.0); CO2 28.8 mmol/L (21.0-32.0); CREATININE 1.45 mg/dL (0.55-1.02); Calcium 8.5 mg/dL (8.5-10.1); Chloride 103 mmol/L (98-107); Estimated GFR 36.96 (mL/min/1.73m2); Glucose 109 mg/dL (74-106); Potassium 3.9 mmol/L (3.5-5.1); Sodium 140 mmol/L (136-145); Total Protein 7.1 g/dL (6.4-8.2)
[2019-09-10 15:31] LABS: Lipase 336 U/L (73-393)
[2019-09-11 13:32] LABS: Cancer Ag 15-3 <8.0 U/mL (<30)
== END 2019-09-10 02:11 ==
PROVIDERS: PCP Nurse Practitioner Family; Visit Provider Internal Medicine
DX: C50.411 Malignant neoplasm of upper-outer quadrant of right female breast; Z17.0 Estrogen receptor positive status [ER+]; C79.51 Secondary malignant neoplasm of bone; R19.7 Diarrhea, unspecified
CPT/HCPCS: 36415; 80053; 83690; 86304; 85025; 86300

== ENCOUNTER 2019-10-08 01:55 | Outpatient (CLI) | payer OTHER, SELFPAY ==
[2019-10-08 10:49] LABS: ALT 26 U/L (14-59); AST 15 U/L (15-37); Albumin 3.9 g/dL (3.4-5.0); Alkaline Phosphatase 85 U/L (46-116); Anion Gap 10.8 mmol/L (3-11); BUN 13 mg/dL (7-18); Bilirubin, Total 0.5 mg/dL (0.2-1.0); CO2 26.2 mmol/L (21.0-32.0); CREATININE 1.63 mg/dL (0.55-1.02); Calcium 8.8 mg/dL (8.5-10.1); Chloride 105 mmol/L (98-107); Estimated GFR 32.29 (mL/min/1.73m2); Glucose 111 mg/dL (74-106); Lipase 283 U/L (73-393); Potassium 4.1 mmol/L (3.5-5.1); Sodium 142 mmol/L (136-145); Total Protein 7.2 g/dL (6.4-8.2)
[2019-10-08 14:24] LABS: Abs Immature Grans 0.01 k/cumm (0.0-0.09); Absolute Basophil Count 0.04 k/cumm (0.0-0.2); Absolute Eosinophil Count 0.21 k/cumm (0.0-0.7); Absolute Lymphocyte Count 1.96 k/cumm (1.2-3.4); Absolute Monocyte Count 0.54 k/cumm (0.11-0.7); Absolute Neutrophil Count 3.85 k/cumm (1.2-6.7); Basophils % 0.6; Eosinophils % 3.2; HCT 44.1 % (36.0-46.0); HGB 14.7 g/dL (12.0-15.5); Immature Grans % 0.2 %; Lymphocytes % 29.7; Mean Corp. HGB Concentration 33.3 g/dL (32.0-36.0); Monocytes % 8.2; Neutrophils % 58.1; Platelet Count 325 x1000/uL (130-400); RBC Distribution Width 13.2 % (11.7-14.6); White Blood Cell Count 6.61 k/cumm (4.4-10.8)
[2019-10-09 13:07] LABS: Cancer Ag 15-3 <8.0 U/mL (<30)
== END 2019-10-08 02:15 ==
PROVIDERS: PCP Nurse Practitioner Family; Visit Provider Internal Medicine
DX: C50.411 Malignant neoplasm of upper-outer quadrant of right female breast (principal); Z17.0 Estrogen receptor positive status [ER+]; R19.7 Diarrhea, unspecified; C79.51 Secondary malignant neoplasm of bone
CPT/HCPCS: 36415; 80053; 83690; 86304; 85025; 86300

== ENCOUNTER 2019-10-16 00:31 | Outpatient (CLI) | payer OTHER, SELFPAY ==
[2019-10-16] MEDS: Omnipaque 350 MG/ML 50 ML BTL PO (09:44)
[2019-10-16] MEDS: Breeza Beverage 473 ML BTL PO (09:45)
--- NOTE | 2019-10-16 09:46 | DI.CT_ITS ---
EXAM: CT CHEST/ABD/PEL WO CLINICAL HISTORY: METASTATIC BREAST CA, RESTAGING EXAM,C50.919. TECHNIQUE: Imaging Protocol: Axial computed tomography images of the with coronal and sagittal refo rmatted images were created and reviewed CONTRAST MATERIAL: Intravenous: Omnipaque 350 Contrast volume:0 mL contrast route:IV - Oral: Yes COMPARISON: CT CHEST/ABD/PEL W from 07/04/2019 FINDINGS: CHEST: Tracheobronchial tree: Patent where visualized. Mediastinum and Bettie: No dominant adenopathy or fluid collection. Pulmonary parenchyma: There has been slight interval increase in size of the mass in the left lower l obe. It now measures 6 x 3.4 x 5 cm. This compares to 6 x 3 x 4.8 cm. The previously described 2 cm infrahilar mass has increased in size and is now contiguous with the larger lesion. No new pulmonar y nodules are present. No focal consolidations are present. Pleura: No effusion or pneumothorax. Aorta: Atherosclerosis. No aneurysm. Lymph nodes: Within normal limits. Heart: No cardiomegaly. No pericardial effusion. Bones: Degenerative changes in the spine. ABDOMEN: Liver: Normal density. No measurable mass. There is focal fatty infiltration near the ligamentum tamara s. Gallbladder and biliary tract: No radiodense calculus or dilation. Pancreas: Normal density, no abnormal calcifications or inflammatory process. Spleen: Normal. Kidneys: Normal size, contour and axis. No radiodense stones or obstructive uropathy. No masses seen. Adrenal glands: No masses seen. Lymph nodes: Within normal limits. Aorta: Atherosclerosis. No aneurysm. PELVIS: Bladder: Symmetric distention, no gross wall thickening. Bowel: No obstruction or bowel wall thickening. No evidence of appendicitis. Peritoneal cavity: No ascites, collection or mesenteric inflammatory response. Reproductive organs: Within normal limits. Bones: The lytic lesion in the L5 vertebral body is stable. Degenerative changes are seen in the spi ne. IMPRESSION: 1. No evidence of abdominal or pelvic metastatic disease. 2. Stable L5 vertebral body lesion. The lesion is indeterminate but unchanged. 3. Interval increase in size of the larger left lower lobe pulmonary mass. The smaller mass has show n slight interval increase in size and is now contiguous with the larger mass . DATA REPOSITORY: All CT scans at this facility are submitted to the National Radiology Data Registry (NRDR) Dose Index Registry (DIR) with the [employer] (ACR). RADIATION OPTIMIZATION: All CT scans at this facility use at least one of these dose optimization te chniques: automated exposure control; mA and/or kV adjustment per patient size (includes targeted exa ms where dose is matched to clinical indication); or iterative reconstruction.
--- NOTE | 2019-10-16 11:37 | DI.NM_ITS ---
EXAM: NM BONE SCAN WHOLE BODY GRP CLINICAL HISTORY: METASTATIC BREAST CA, RESTAGING EXAM, C50.919. TECHNIQUE: Injected Dose: 25.2 mCi Tc-99m MDP Delayed Images: 2-3 hours. COMPARISON: WHOLE BODY BONE SCAN from 01/15/2014 FINDINGS: Symmetric axial uptake. Bilateral renal excretion is identified. There is a focus of increased radiot racer uptake in the L5 vertebral body. This corresponds to the lytic lesion on the CT scan of the ab domen and pelvis. There are otherwise scattered stable areas of increased radiotracer uptake in the axial and appendicular skeleton which is likely degenerative. IMPRESSION: 1. New focus of increased radiotracer uptake in the L5 vertebral body. This corresponds to the lytic lesion on the CT scan. Metastasis cannot be excluded.
== END 2019-10-16 00:51 ==
PROVIDERS: PCP Nurse Practitioner Family; Visit Provider Internal Medicine
DX: C50.411 Malignant neoplasm of upper-outer quadrant of right female breast (principal); C79.51 Secondary malignant neoplasm of bone; C78.02 Secondary malignant neoplasm of left lung; K76.89 Other specified diseases of liver; M89.8X8 Other specified disorders of bone, other site
CPT/HCPCS: 71250; 78306; 74176; Q9967

== ENCOUNTER 2019-10-22 02:10 | Outpatient (CLI) | payer OTHER, SELFPAY ==
[2019-10-22 12:01] LABS: Abs Immature Grans 0.01 k/cumm (0.0-0.09); Absolute Basophil Count 0.05 k/cumm (0.0-0.2); Absolute Eosinophil Count 0.44 k/cumm (0.0-0.7); Absolute Lymphocyte Count 1.83 k/cumm (1.2-3.4); Absolute Monocyte Count 0.47 k/cumm (0.11-0.7); Absolute Neutrophil Count 2.65 k/cumm (1.2-6.7); Basophils % 0.9; Eosinophils % 8.1; HCT 41.6 % (36.0-46.0); HGB 13.5 g/dL (12.0-15.5); Immature Grans % 0.2 %; Lymphocytes % 33.6; Mean Corp. HGB Concentration 32.5 g/dL (32.0-36.0); Mean Corpuscular Hemoglobin 29.1 pg (27.0-33.0); Mean Corpuscular Volume 89.7 fL (80-95); Mean Platelet Volume 9.1 fL (8.0-11.0); Monocytes % 8.6; Neutrophils % 48.6; Platelet Count 308 x1000/uL (130-400); RBC 4.64 m/cumm (4.00-5.20); RBC Distribution Width 13.7 % (11.7-14.6); White Blood Cell Count 5.45 k/cumm (4.4-10.8)
[2019-10-22 12:14] LABS: ALT 25 U/L (14-59); AST 17 U/L (15-37); Albumin 3.6 g/dL (3.4-5.0); Alkaline Phosphatase 78 U/L (46-116); Anion Gap 8.6 mmol/L (3-11); BUN 9 mg/dL (7-18); Bilirubin, Total 0.4 mg/dL (0.2-1.0); CO2 29.4 mmol/L (21.0-32.0); CREATININE 1.45 mg/dL (0.55-1.02); Chloride 106 mmol/L (98-107); Estimated GFR 36.96 (mL/min/1.73m2); Glucose 124 mg/dL (74-106); Potassium 3.3 mmol/L (3.5-5.1); Sodium 144 mmol/L (136-145)
[2019-10-23 13:10] LABS: Cancer Ag 15-3 <8.0 U/mL (<30)
== END 2019-10-22 02:30 ==
PROVIDERS: PCP Nurse Practitioner Family; Visit Provider Internal Medicine
DX: C50.411 Malignant neoplasm of upper-outer quadrant of right female breast (principal); Z17.0 Estrogen receptor positive status [ER+]
CPT/HCPCS: 36415; 80053; 86304; 85025; 86300

== ENCOUNTER 2019-11-20 09:53 | Outpatient (CLI) | payer OTHER, SELFPAY ==
--- NOTE | 2019-11-20 | DI.RAD_ITS ---
EXAM: XR SACRUM COCCYX CLINICAL HISTORY: COCCYDYNIA M53.3, FALL ON ICE, KNOWN METASTATIC BREAST CANCER W/ L5 LESION. TECHNIQUE: 2D digital imaging was performed. COMPARISON: No exams were available for comparison FINDINGS: BONES: No acute fracture is present. No bony destructive lesion is seen. JOINTS: No dislocation present. SOFT TISSUE: Normal. IMPRESSION: Unremarkable radiographs of the sacrum.
== END 2019-11-20 10:13 ==
PROVIDERS: PCP Nurse Practitioner Family; Visit Provider Family Medicine
DX: M53.3 Sacrococcygeal disorders, not elsewhere classified (principal); Z85.3 Personal history of malignant neoplasm of breast; W00.0XXA Fall on same level due to ice and snow, initial encounter
CPT/HCPCS: 72220

== ENCOUNTER 2019-12-02 02:02 | Outpatient (CLI) | payer OTHER, SELFPAY ==
[2019-12-02 09:12] LABS: Abs Immature Grans 0.01 k/cumm (0.0-0.09); Absolute Basophil Count 0.04 k/cumm (0.0-0.2); Absolute Lymphocyte Count 1.36 k/cumm (1.2-3.4); Absolute Monocyte Count 0.39 k/cumm (0.11-0.7); Absolute Neutrophil Count 2.87 k/cumm (1.2-6.7); Basophils % 0.8; Eosinophils % 11.4; HCT 45.6 % (36.0-46.0); HGB 15.1 g/dL (12.0-15.5); Immature Grans % 0.2 %; Lymphocytes % 25.8; Mean Corp. HGB Concentration 33.1 g/dL (32.0-36.0); Mean Corpuscular Hemoglobin 28.5 pg (27.0-33.0); Mean Platelet Volume 9.4 fL (8.0-11.0); Monocytes % 7.4; Neutrophils % 54.4; Platelet Count 299 x1000/uL (130-400); RBC Distribution Width 14.6 % (11.7-14.6); White Blood Cell Count 5.27 k/cumm (4.4-10.8)
[2019-12-02 10:09] LABS: ALT 25 U/L (14-59); AST 14 U/L (15-37); Albumin 3.9 g/dL (3.4-5.0); Alkaline Phosphatase 98 U/L (46-116); Anion Gap 9.5 mmol/L (3-11); BUN 14 mg/dL (7-18); Bilirubin, Total 0.4 mg/dL (0.2-1.0); CO2 25.5 mmol/L (21.0-32.0); CREATININE 1.79 mg/dL (0.55-1.02); Calcium 8.2 mg/dL (8.5-10.1); Chloride 105 mmol/L (98-107); Estimated GFR 28.89 (mL/min/1.73m2); Glucose 153 mg/dL (74-106); Lipase 371 U/L (73-393); Potassium 4.5 mmol/L (3.5-5.1); Sodium 140 mmol/L (136-145)
[2019-12-03 17:11] LABS: Cancer Ag 15-3 <8.0 U/mL (<30)
== END 2019-12-02 02:22 ==
PROVIDERS: PCP Nurse Practitioner Family; Visit Provider Internal Medicine
DX: R11.0 Nausea; K85.30 Drug induced acute pancreatitis without necrosis or infection; C50.411 Malignant neoplasm of upper-outer quadrant of right female breast; Z17.0 Estrogen receptor positive status [ER+]
CPT/HCPCS: 36415; 80053; 83690; 86304; 85025; 86300

== ENCOUNTER 2019-12-04 02:29 | Outpatient (CLI) | payer OTHER, SELFPAY ==
[2019-12-04 15:14] LABS: ALT 25 U/L (14-59); AST 15 U/L (15-37); Albumin 3.9 g/dL (3.4-5.0); Alkaline Phosphatase 91 U/L (46-116); Anion Gap 7.8 mmol/L (3-11); BUN 15 mg/dL (7-18); Bilirubin, Total 0.4 mg/dL (0.2-1.0); CO2 26.2 mmol/L (21.0-32.0); Calcium 8.2 mg/dL (8.5-10.1); Chloride 106 mmol/L (98-107); Estimated GFR 30.66 (mL/min/1.73m2); Glucose 79 mg/dL (74-106); Potassium 3.9 mmol/L (3.5-5.1); Sodium 140 mmol/L (136-145); Total Protein 7.4 g/dL (6.4-8.2)
== END 2019-12-04 02:49 ==
PROVIDERS: PCP Nurse Practitioner Family; Visit Provider Internal Medicine
DX: C50.919 Malignant neoplasm of unspecified site of unspecified female breast (principal)
CPT/HCPCS: 36415; 80053

== ENCOUNTER 2019-12-13 12:33 | Outpatient (REF) | payer OTHER, SELFPAY ==
[2019-12-14 11:08] LABS: Campylobacter PCR Negative (Negative); Salmonella PCR Negative (Negative); Shiga Toxin PCR Negative (Negative); Shigella/Enteroinvasive Ecoli Negative (Negative)
== END 2019-12-13 12:53 ==
LOC: NCHCN 12:33
PROVIDERS: PCP Nurse Practitioner Family; Visit Provider Nurse Practitioner Family
DX: R19.7 Diarrhea, unspecified (principal)
CPT/HCPCS: 87329; 87505; 83630; 87324

== ENCOUNTER 2019-12-18 09:58 | Outpatient (CLI) | payer OTHER, SELFPAY ==
--- NOTE | 2019-12-18 | DI.RAD_ITS ---
EXAM: XR WRIST LT COMPLETE CLINICAL HISTORY: PAIN IN LT WRIST M25.532 COMPARISON: No exams were available for comparison FINDINGS: Three views were obtained. There is question of slight widening of the navicular lunate joint which could represent prior ligamentous injury. Otherwise carpal alignment is within normal limits. No matthew ny abnormality is seen.
== END 2019-12-18 10:18 ==
PROVIDERS: PCP Nurse Practitioner Family; Visit Provider Nurse Practitioner Family
DX: M25.532 Pain in left wrist (principal)
CPT/HCPCS: 73110

== ENCOUNTER 2019-12-23 02:01 | Outpatient (CLI) | payer OTHER, SELFPAY ==
--- NOTE | 2019-12-23 | DI.MAMMO_ITS ---
EXAM: MG MAMMO SCREENING 60 MIN DUR CLINICAL HISTORY: SCREENING, Z12.39, PERSONAL H/O BREAST CA, Z85.3 TECHNIQUE: Mammograms were interpreted according to the usual protocol including computer analysis w [employer] system, tomosynthesis and C-view imaging. COMPARISON: Prior study of November 2017 FINDINGS: Prior right lumpectomy noted. The breasts are of moderate density with fairly symmetrical distributio n of fibroglandular tissue. No dominant mass identified in either breast. There is a group of very faint microcalcifications at the limits of visualization in the upper outer quadrant of left breast. These appear unchanged from prior study of November 2017. No associated mass. No other significant calcifications in either breast. IMPRESSION: No specific evidence of malignancy at this time. Follow-up mammogram requested in 12 months to assess the stability of microcalcifications of the upper outer quadrant of the left breast. BI-RADS Cat 3 - Annual - Resume Annual Screening DensBreast Density - Category B - Scattered areas of fibroglandular density
== END 2019-12-23 02:21 ==
PROVIDERS: PCP Nurse Practitioner Family; Visit Provider Nurse Practitioner Family
DX: Z12.31 Encounter for screening mammogram for malignant neoplasm of breast (principal); Z85.3 Personal history of malignant neoplasm of breast; R92.0 Mammographic microcalcification found on diagnostic imaging of breast
CPT/HCPCS: 77063; 77067

== ENCOUNTER 2019-12-23 10:23 | Outpatient (CLI) | payer OTHER, SELFPAY ==
[2019-12-23 14:52] LABS: Abs Immature Grans 0.01 k/cumm (0.0-0.09); Absolute Basophil Count 0.04 k/cumm (0.0-0.2); Absolute Eosinophil Count 0.66 k/cumm (0.0-0.7); Absolute Lymphocyte Count 1.39 k/cumm (1.2-3.4); Absolute Monocyte Count 0.63 k/cumm (0.11-0.7); Absolute Neutrophil Count 4.45 k/cumm (1.2-6.7); Basophils % 0.6; Eosinophils % 9.2; HCT 43.6 % (36.0-46.0); HGB 14.5 g/dL (12.0-15.5); Immature Grans % 0.1 %; Lymphocytes % 19.4; Mean Corp. HGB Concentration 33.3 g/dL (32.0-36.0); Mean Corpuscular Hemoglobin 28.7 pg (27.0-33.0); Mean Corpuscular Volume 86.3 fL (80-95); Mean Platelet Volume 9.3 fL (8.0-11.0); Monocytes % 8.8; Neutrophils % 61.9; Platelet Count 363 x1000/uL (130-400); RBC 5.05 m/cumm (4.00-5.20); White Blood Cell Count 7.18 k/cumm (4.4-10.8)
[2019-12-23 15:47] LABS: ALT 25 U/L (14-59); AST 16 U/L (15-37); Alkaline Phosphatase 103 U/L (46-116); Anion Gap 11.6 mmol/L (3-11); BUN 16 mg/dL (7-18); Bilirubin, Total 0.4 mg/dL (0.2-1.0); CO2 24.4 mmol/L (21.0-32.0); Calcium 8.4 mg/dL (8.5-10.1); Chloride 105 mmol/L (98-107); Estimated GFR 30.66 (mL/min/1.73m2); Glucose 88 mg/dL (74-106); Lipase 850 U/L (73-393); Potassium 4.1 mmol/L (3.5-5.1); Sodium 141 mmol/L (136-145); Total Protein 7.3 g/dL (6.4-8.2)
== END 2019-12-23 10:43 ==
PROVIDERS: PCP Nurse Practitioner Family; Visit Provider Internal Medicine
DX: K85.30 Drug induced acute pancreatitis without necrosis or infection (principal); R11.0 Nausea; C50.411 Malignant neoplasm of upper-outer quadrant of right female breast
CPT/HCPCS: 36415; 80053; 83690; 85025

== ENCOUNTER 2020-01-06 13:47 | Emergency (ER) | payer OTHER, SELFPAY ==
[2020-01-06 13:58] VITALS: BP 140/74; PULSE 84; RESP 16; TEMP 36.8; O2SAT 97
--- NOTE | 2020-01-06 14:10 | ED.GENADUL_ITS ---
Discharge Plan Disposition Patient Disposition: HOME Condition: Stable Discharge Details Chief Complaint: Nk/Back Pain Clinical Impression: Mass of left lung, Acute UTI Primary Care Provider: Aries Kuhn ED Provider: Tracey Hicks Home Meds and New Rx's Prescriptions: New cephalexin [Keflex] 500 mg capsule 500 mg PO BID Qty: 20 RF: 0 No Action losartan 50 mg Tablet 50 mg PO DAILY RF: 0 cetirizine 10 mg Tablet 10 mg PO DAILY RF: 0 fluticasone propionate 50 mcg/actuation [place],Suspension 1 spray INTRANASAL DAILY RF: 0 Calcium 600 + D(3) 600 mg calcium- 200 unit Capsule 1 cap PO DAILY RF: 0 nystatin 100,000 unit/gram Powder 15 g topical TID Qty: 0 RF: 0 sodium chloride [Deep Sea Nasal] 0.65 % Aerosol,[place] 0 ml NS QID PRN PRNQty: 0 RF: 0 Eliquis 5 mg Tablet 5 mg PO BID RF: 0 Discharge Instructions Instructions: Urinary Tract Infection in Women (ED) Additional Instructions: 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 Drink plenty of fluids. Use antibiotic as prescribed twice daily for the next 10 days. Urine culture pending Rest activities as tolerated For fever, increase in pain, ill feeling or worsening symptoms have immediate reevaluation Plan to pursue your bone scan however this CTs which were scheduled were performed today, You do not need to repeat these Return to the ER for any worsening, concerns or acute alarming symptoms as discussed if needed sooner Discharge Data Discharge Date/Time-TO BE ENTERED AT DEPARTURE: 01/06/20 17:38 Medical Decision Making <Tracey Hicks - Last Filed: 01/07/20 08:03> Patient is a 59-year-old female with left-sided chest pain which began on she reports increased pain with deep breathing and coughing. She does have a history of metastatic breast cancer with mets to her lung, spine. She is taking oral chemotherapy was recently taken off due to side effects. She denies fever or chills, denies dysuria. On exam she does have some rhonchi to the left side on auscultation. She has a eczema-like rash which she reports is from the chemotherapy drugs. No midline C, T or L-spine tenderness no CVA tenderness. 1418: Initial work-up includes EKG, chest x-ray, CBC, CMP, UA, troponin, and d- dimer. EKG obtained and normal sinus rhythm, old available for review no significant change. There is some poor R wave progression noted possibly lead placement in V4 and V5. Patient states she has a CT chest abdomen and pelvis set up for Monday, discussed whether doing chest x-ray or the CT at this time. Shared decision making patient opted to do CT chest abdomen pelvis today. Upon discharge we will give patient a disc to take with her to her appointment with the oncologist. Care is to be handed over to TI Berry pending CT chest, abdomen, pelvis. Differential diagnosis includes worsening metastatic disease, PE, pneumothorax, costochondritis, pneumonia. <TI Carbajal - Last Filed: 01/07/20 21:51> Accepted care of 59-year-old patient in signout pending CT of her chest to rule out pulmonary embolism. Patient has known lung mass in her left chest was complaining of onset of pain in the left side of her chest. Patient spoke with her doctor who recommended evaluation in the emergency room for possible pulmonary embolism. Patient is currently anticoagulated. Patient CT report provided reports increase in the mass in her left lung from 6 cm to 9 cm. No evidence of pulmonary embolism at this time or fluid collection in the lung. No other obvious abnormalities noted. Reviewed patient's CT of her abdomen and pelvis which reveals a stable lesion in her L5. After reviewing patient's medical chart urinalysis was reviewed which revealed notable findings of infection specifically small blood, nitrite positive, moderate leukocyte esterase, red blood cells 3-5 per high-powered field as well as white blood cells greater than 50 per high-powered field and moderate bacteria, this is consistent with urinary tract infection given patient's complaints of left-sided pain which she reports along the lateral aspect of her chest while I suspect or I am concerned somewhat with the possibility of pyelonephritis however pain could be attributed to the expansion of the left lung mass which is present. I feel it reasonable to cover antibiotics given her immunocompromise and current chemotherapy for the possibility of pyelonephritis although she may just have uncomplicated urinary tract infection at this time. Made patient aware of her CT findings specifically increase in size of mass, no evidence of pulmonary embolism as well as my concern of her urinary infection at this time. I spoke with patient's heme-onc doctor Dr. Reis discussed patient CT findings. Discussed results of chest abdomen and pelvis CT imaging. Images were pushed forward to [facility] so he has the ability to review them at his request. Discussed patient's urinary infection findings. He would prefer we treat appropriately with antibiotics at this time and he will follow-up with urine culture results. He will follow-up with the patient this week. He does want the patient to pursue bone scanning which is ordered but patient no longer needs to repeat CT this week. Patient made aware of his recommendations. Patient's creatinine clearance calculated to be 59. We will treat initially with a dose of 1 g of Rocephin in the emergency room and plan to treat with Keflex 500 mg twice daily for 10 days is up-to-date recommends a maximum dose of 1000 mg/day based on her creatinine clearance. Patient agrees with this plan of care. Patient does have a penicillin allergy which is reported a mild hive-like rash as a child no anaphylaxis. We discussed the possibility of allergic reaction while taking Keflex however I do feel is an appropriate antibiotic given the circumstance. Patient agrees with plan of care. Counseled regarding allergy symptoms of antibiotic use. Patient consents to use. Patient feels comfortable discharge plan. The patient was stable and requested discharge. Prior to discharge, my usual and customary return precautions were reviewed with the patient - this included follow-up instructions and reasons to return to the Emergency Department if conditions worsens, does not improve as expected, or other new concerns arise. HPI <Tracey Hicks - Last Filed: 01/07/20 08:03> General Mode of arrival: ambulatory . Date/Time Provider Initiated Documentation: 01/06/20 13:59 . Limitations to Documentation: no limitations . Information obtained by: patient . HPI Narrative: Patient is a 59-year-old female with left-sided chest pain which began on she reports increased pain with deep breathing and coughing. She does have a history of metastatic breast cancer with mets to her lung, spine. She is taking oral chemotherapy was recently taken off due to side effects (rash). She denies fever or chills, denies dysuria. On exam she does have some rhonchi to the left side on auscultation. She has a eczema-like rash which she reports is from the chemotherapy drugs. No midline C, T or L-spine tenderness no CVA tenderness. 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 Related Data Home Medications Medication Instructions Recorded Confirmed Calcium 600 + D(3) 1 cap PO DAILY 04/04/19 01/06/20 cetirizine 10 mg PO DAILY 04/04/19 01/06/20 fluticasone propionate 1 spray INTRANASAL DAILY 04/04/19 01/06/20 losartan 50 mg PO DAILY 04/04/19 01/06/20 nystatin 15 g TOPICAL TID #0 g 04/10/19 01/06/20 sodium chloride [Deep Sea Nasal] 0 ml NS QID PRN PRN #0 ml 04/10/19 01/06/20 apixaban [Eliquis] 5 mg PO BID 01/06/20 01/06/20 cephalexin [Keflex] 500 mg PO BID #20 cap 01/06/20 Previous Rx's Medication Instructions Recorded nystatin 15 g TOPICAL TID #0 g 04/10/19 sodium chloride [Deep Sea Nasal] 0 ml NS QID PRN PRN #0 ml 04/10/19 cephalexin [Keflex] 500 mg PO BID #20 cap 01/06/20 Allergies Allergy/AdvReac Type Severity Reaction Status Date / Time Sulfa (Sulfonamide Allergy Severe HIVES, Unverified 01/06/20 14:02 Antibiotics) ITCHING, BURNING sulfamethoxazole Allergy Intermediate Skin Rash Unverified 01/06/20 14:02 [From Bactrim] trimethoprim [From Bactrim] Allergy Intermediate Skin Rash Unverified 01/06/20 14:02 Penicillins Allergy Mild Skin Rash Unverified 01/06/20 14:02 General Stated Complaint: Nk/Back Pain NAHID: 2 Review of Systems <Tracey Hicks - Last Filed: 01/07/20 08:03> Narrative: Constitutional: Negative for weight loss, alert and oriented, well groomed, normal body habitus, appears comfortable. HEENT: Denies trauma, headaches, blurry vision, nasal discharge, sore throat, trouble swallowing. Chest: Denies palpitations, irregular rhythm, hypertension. Positive left- sided chest pain. Respiratory: Denies Shortness of breath, hemoptysis. History of metastatic breast cancer with mets to lung spine. Positive smoker. GI: Denies abdominal pain, nausea, vomiting, diarrhea, constipation. : Denies dysuria, hematuria, rectal bleeding. Positive left sided flank pain. Neuro: Denies dizziness, blurry vision, weakness, syncope, headache or facial numbness. Hematologic: Denies easy bruising, intolerance to heat or cold, hair loss. PFSH <Tracey Hicks - Last Filed: 01/07/20 08:03> Medical History Deep venous thrombosis of upper extremity (Inactive) Right HTN (hypertension) (Chronic) Infiltrating ductal carcinoma of breast, stage 3 (Chronic) Metastatic breast cancer (Acute) Left Surgical History Breast, Mastectomy (Inactive) Right partial mastectomy, with sentinel lymph node biopsy, then completion ALND Family History Mother No problems noted. Father No problems noted. Social History Smoking/Tobacco Use Status: Current every day Tobacco Type: cigarettes Alcohol Intake: never Drug use: Never Do you feel safe at home: Yes Do you feel safe in your relationship?: Yes Exam <Tracey Hicks - Last Filed: 01/07/20 08:03> Narrative Exam Narrative: Constitutional: Alert and oriented x3. Appears stated age. Normal body habitus. Head: Normocephalic, no trauma. Eyes: Pupils PERRLA, Red reflex noted, EOM's intact. Eyelids symmetrical without lesions, discharge, or swelling. ENT: Bilateral TM's WNL, External ear normal to inspection, no mastoid TTP, swelling, or erythema, Nasal turbinates WNL, no nasal discharge. Normal dentition, Posterior pharynx WNL, no exudate. Chest: RRR, Normal S1, S2, distal pulses intact. No CVA tenderness. Resp: Left inspiratory rhonchi on upper and lower lobes. Clear to auscultation right side. Musculoskeletal: Normal gait, 5/5 strength to all four extremities. Skin: Dry sandpaper like rash noted to her back and abdomen.. Capillary refill less than 2 sec. Neurologic: Cranial nerves II-XII intact. Alert and oriented x 3. DTR's intact. Hematologic/Lymphatic: No ecchymosis, no lymphadenopathy. Course <Tracey Hicks - Last Filed: 01/07/20 08:03> Vital Signs Vital signs: Vital Signs Temperature 36.8 C 01/06/20 13:58 Pulse 84 01/06/20 13:58 Respiratory Rate 16 01/06/20 13:58 Blood Pressure 140/74 01/06/20 13:58 Pulse Oximetry 97 01/06/20 13:58 Temperature 36.8 C 01/06/20 13:58 Temperature Source Skin 01/06/20 13:58 Pulse 84 01/06/20 13:58 Respiratory Rate 16 01/06/20 13:58 Respiratory Effort Non-Labored 01/06/20 14:02 Blood Pressure 140/74 01/06/20 13:58 Blood Pressure Position Sitting 01/06/20 13:58 Pulse Oximetry 97 01/06/20 13:58 Pain Level 2 01/06/20 13:58
--- NOTE | 2020-01-06 14:15 | DI.CT_ITS ---
EXAM: CT CHEST PE ABD PELVIS W CLINICAL HISTORY: Left sided chest pain,metastatic lung cancer TECHNIQUE: COMPARISON: CT CHEST/ABD/PEL WO from 10/16/2019 FINDINGS: CT angiography of the chest abdomen and pelvis was performed with bolus infusion of 100 cc of Omnipaq ue 350. There is no evidence of pulmonary embolic disease. No significant abnormality of the thorac ic aorta or major branches. Note is again made of previously described left lower lobe intrapulmonary mass, this is now confluent with the infrahilar vessels on the left and measures up to about 9 x 4 cm in diameter. No additiona l new pulmonary lesions seen. The liver, spleen, adrenals, and kidneys appear normal. Pancreas appe ars normal. No biliary dilatation. No gross abdominal or pelvic adenopathy. No significant abdomin al wall hernia. No evidence of bowel obstruction. [employer] structures appear intact as visualized. Abdominal aorta is of normal diameter. Mild atheromatous calcification noted in abdominal aorta. Ma eva branches appear patent. Sclerotic L5 vertebral body lesion again noted, essentially unchanged. IMPRESSION: Increased size of left lower lobe pulmonary mass. No other significant change in appearance in alessandro rison with examination of October 16.
[2020-01-06 15:07] LABS: Abs Immature Grans 0.01 k/cumm (0.0-0.09); Absolute Basophil Count 0.04 k/cumm (0.0-0.2); Absolute Eosinophil Count 0.31 k/cumm (0.0-0.7); Absolute Lymphocyte Count 1.11 k/cumm (1.2-3.4); Absolute Monocyte Count 0.75 k/cumm (0.11-0.7); Absolute Neutrophil Count 4.66 k/cumm (1.2-6.7); Basophils % 0.6; Eosinophils % 4.5; HCT 36.3 % (36.0-46.0); HGB 12.4 g/dL (12.0-15.5); Immature Grans % 0.1 %; Lymphocytes % 16.1; Mean Corp. HGB Concentration 34.2 g/dL (32.0-36.0); Mean Corpuscular Hemoglobin 29.5 pg (27.0-33.0); Mean Corpuscular Volume 86.4 fL (80-95); Mean Platelet Volume 9.8 fL (8.0-11.0); Monocytes % 10.9; Neutrophils % 67.8; Platelet Count 322 x1000/uL (130-400); White Blood Cell Count 6.88 k/cumm (4.4-10.8)
[2020-01-06 15:17] LABS: ALT 20 U/L (14-59); AST 14 U/L (15-37); Albumin 3.1 g/dL (3.4-5.0); Alkaline Phosphatase 81 U/L (46-116); Anion Gap 8.7 mmol/L (3-11); BUN 23 mg/dL (7-18); Bilirubin, Total 0.3 mg/dL (0.2-1.0); CO2 25.3 mmol/L (21.0-32.0); CREATININE 1.61 mg/dL (0.55-1.02); Calcium 8.8 mg/dL (8.5-10.1); Chloride 106 mmol/L (98-107); Estimated GFR 32.64 (mL/min/1.73m2); Glucose 80 mg/dL (74-106); Magnesium 1.9 mg/dL (1.8-2.4); Potassium 3.6 mmol/L (3.5-5.1); Sodium 140 mmol/L (136-145); Total Protein 6.9 g/dL (6.4-8.2); Troponin I < 0.05 ng/Ml (<0.06)
[2020-01-06 15:35] LABS: D-Dimer 622 ng/mlFEU (<500)
[2020-01-06] MEDS: Omnipaque 350 MG/ML 100 ML BTL IJ (16:11)
[2020-01-06] MEDS: Normal Saline - Diluent 50 ML VIAL IV (16:12)
[2020-01-06] MEDS: Normal Saline 1,000 ML 1000 ML IV (16:13)
[2020-01-06 16:23] LABS: Bilirubin Negative (Negative); Blood Small (Negative); Clarity Sl Cloudy (Clear); Glucose Negative (Negative); Ketones Negative (Negative); Leukocyte Esterase Moderate (Negative); Nitrite Positive (Negative); Specific Gravity 1.015 (1.005-1.025); Urobilinogen 0.2 EU/dL (Up TO 0.2); pH 5.5 (5-8)
[2020-01-06 16:32] LABS: Bacteria Moderate HPF (Negative); C & S Indicated? Yes; Casts Negative LPF (Negative); Crystals Negative HPF (Negative); Epithelial Cells Rare HPF (Negative); Mucus Negative (Negative); Other Cells Negative (Negative); WBC >50 HPF (0-5)
[2020-01-06 16:43] VITALS: BP 140/67; PULSE 81; RESP 18; TEMP 36.8; O2SAT 99
[2020-01-06] MEDS: cefTRIAXone 1 GM/50 ML BAG IVPB (16:58)
[2020-01-06] MEDS: Normal Saline Flush 10 ML SYR IVP (16:59)
[2020-01-06 17:34] VITALS: BP 145/70; PULSE 73; RESP 18; TEMP 36.8; O2SAT 99
[2020-01-06 17:35] VITALS: BP 145/70; PULSE 73; RESP 18; TEMP 36.8; O2SAT 99
== END 2020-01-06 17:38 | disposition home or self-care (01) ==
PROVIDERS: Emergency Provider Registered Nurse Emergency; PCP Nurse Practitioner Family
DX: N39.0 Urinary tract infection, site not specified (principal); R91.8 Other nonspecific abnormal finding of lung field; C50.911 Malignant neoplasm of unspecified site of right female breast; I10 Essential (primary) hypertension
CPT/HCPCS: 36415; 71275; 74177; 80053; 87077; 96361; 96365; 99284; 81003; 81015; 83735; 84484; 85025; 85379; 87086; 87186; J0696; J3490

== ENCOUNTER 2020-01-08 00:48 | Outpatient (CLI) | payer OTHER, SELFPAY ==
--- NOTE | 2020-01-08 | DI.NM_ITS ---
EXAM: NM BONE SCAN WHOLE BODY GRP CLINICAL HISTORY: METASTATIC BREAST CA, C50.919, RESTAGING EXAM TECHNIQUE: Whole-body bone scan with SPECT imaging of the lumbosacral region was performed with intr avenous infusion of 25 millicuries of technetium [address] fusion imagin g was performed. COMPARISON: NM BONE SCAN WHOLE BODY GRP from 10/16/2019 CT CHEST PE ABD PELVIS W from 01/06/2020 FINDINGS: The previously noted mixed lytic/sclerotic lesion of L5 vertebral body is again noted and is seen to correspond with moderately increased uptake on bone scan. There is a focus of increased uptake also present at the junction of the 5th and 6th sacral segments, this does not correlate with significantl y abnormal CT findings, apart from some sclerosis of the adjacent endplates which may be degenerative . The findings could represent chronic degeneration at this joint or could reflect metastatic proces s. I would note that this focus of increased uptake was not visible on prior whole body bone scan of October 16. No gross fracture was identified at this site on CT of January 05. No other areas of significantly increased uptake identified on whole body imaging. IMPRESSION: Increased uptake persists in L5 lesion as previously described. Findings are suspicious for metastat ic disease. Localized increased uptake identified on SPECT imaging at the junction of the 5th and 6t h sacral segments is indeterminate and may be associated with degenerative change, acute bony injury, or metastasis.
[2020-01-08 09:28] LABS: ALT 18 U/L (14-59); AST 18 U/L (15-37); Albumin 3.2 g/dL (3.4-5.0); Alkaline Phosphatase 83 U/L (46-116); Anion Gap 11.5 mmol/L (3-11); BUN 16 mg/dL (7-18); Bilirubin, Total 0.4 mg/dL (0.2-1.0); CO2 22.5 mmol/L (21.0-32.0); CREATININE 1.37 mg/dL (0.55-1.02); Calcium 8.2 mg/dL (8.5-10.1); Chloride 109 mmol/L (98-107); Estimated GFR 39.33 (mL/min/1.73m2); Glucose 83 mg/dL (74-106); Lipase 515 U/L (73-393); Potassium 3.9 mmol/L (3.5-5.1); Sodium 143 mmol/L (136-145); Total Protein 6.5 g/dL (6.4-8.2)
== END 2020-01-08 01:08 ==
PROVIDERS: PCP Nurse Practitioner Family; Visit Provider Internal Medicine
DX: C50.411 Malignant neoplasm of upper-outer quadrant of right female breast (principal); C79.51 Secondary malignant neoplasm of bone; R19.7 Diarrhea, unspecified
CPT/HCPCS: 78306; 80053; 83690

== ENCOUNTER 2020-01-21 00:56 | Outpatient (RCR) | payer OTHER, SELFPAY ==
[2020-01-21 08:16] LABS: Abs Immature Grans 0.03 k/cumm (0.0-0.09); Absolute Basophil Count 0.04 k/cumm (0.0-0.2); Absolute Eosinophil Count 0.37 k/cumm (0.0-0.7); Absolute Lymphocyte Count 1.47 k/cumm (1.2-3.4); Absolute Monocyte Count 0.52 k/cumm (0.11-0.7); Absolute Neutrophil Count 5.37 k/cumm (1.2-6.7); Basophils % 0.5; Eosinophils % 4.7; HCT 40.8 % (36.0-46.0); HGB 13.1 g/dL (12.0-15.5); Immature Grans % 0.4 %; Lymphocytes % 18.8; Mean Corp. HGB Concentration 32.1 g/dL (32.0-36.0); Mean Corpuscular Hemoglobin 28.1 pg (27.0-33.0); Mean Corpuscular Volume 87.4 fL (80-95); Mean Platelet Volume 9.3 fL (8.0-11.0); Monocytes % 6.7; Neutrophils % 68.9; Platelet Count 543 x1000/uL (130-400); RBC 4.67 m/cumm (4.00-5.20); RBC Distribution Width 13.7 % (11.7-14.6)
[2020-01-21 08:36] LABS: ALT 20 U/L (14-59); AST 18 U/L (15-37); Albumin 3.3 g/dL (3.4-5.0); Alkaline Phosphatase 96 U/L (46-116); Anion Gap 5.7 mmol/L (3-11); BUN 15 mg/dL (7-18); Bilirubin, Total 0.3 mg/dL (0.2-1.0); CO2 28.3 mmol/L (21.0-32.0); CREATININE 1.59 mg/dL (0.55-1.02); Calcium 9.4 mg/dL (8.5-10.1); Chloride 104 mmol/L (98-107); Estimated GFR 33.12 (mL/min/1.73m2); FREE T4 0.94 ng/dL (0.76-1.46); Glucose 87 mg/dL (74-106); Potassium 4.2 mmol/L (3.5-5.1); Sodium 138 mmol/L (136-145); Total Protein 7.8 g/dL (6.4-8.2)
== END 2020-01-30 23:59 | disposition home or self-care (01) ==
LOC: INF 00:56
PROVIDERS: PCP Nurse Practitioner Family; Visit Provider Internal Medicine
DX: C34.92 Malignant neoplasm of unspecified part of left bronchus or lung (principal)
CPT/HCPCS: 36415; 80053; 84439; 84443; 85025

== ENCOUNTER 2020-01-26 16:13 | Emergency (ER) | payer OTHER, SELFPAY ==
[2020-01-26 16:21] VITALS: BP 117/70; PULSE 96; RESP 18; TEMP 36.8; O2SAT 99
[2020-01-26 16:26] VITALS: RESP 18
--- NOTE | 2020-01-26 16:35 | W.ED.GENAD ---
Discharge Plan Disposition Patient Disposition: HOME Discharge Details Chief Complaint: SOB Clinical Impression: Mass of left lung, Cancer associated pain Primary Care Provider: Aries Kuhn ED Provider: Tracey Hicks Home Meds and New Rx's Prescriptions: New oxycodone-acetaminophen 5-325 mg tablet 1 tab PO Q6H PRN (Reason: pain) Qty: 14 RF: 0 Continued losartan 50 mg Tablet 50 mg PO DAILY RF: 0 fluticasone propionate 50 mcg/actuation Blackwell,Suspension 1 spray INTRANASAL DAILY RF: 0 Calcium 600 + D(3) 600 mg calcium- 200 unit Capsule 1 cap PO DAILY RF: 0 sodium chloride [Deep Sea Nasal] 0.65 % Aerosol,Blackwell 0 ml NS QID PRN PRNQty: 0 RF: 0 Eliquis 5 mg Tablet 5 mg PO BID RF: 0 Discharge Instructions Instructions: Noncardiac Chest Pain (ED), Opioid Safety (ED) Additional Instructions: Please take pain medications as directed if needed. Do not take any extra Tylenol if you are taking these medications. Take Percocet with food and do not drive a car or operate heavy machinery. Follow up with primary care provider in 3-5 days. Return to ED sooner if any worsening or concerns. Increase oral fluids. Return to the ED or follow-up with PCP if any worsening, fever, vomiting, diarrhea or blood in your diarrhea. Referrals: Aries Kuhn, SERVICES EXECUTIVE [Primary Care Provider] - Medical Decision Making 59-year-old female presents to the ED with left-sided anterior and posterior chest pain. This got worse approximately 30 minutes prior to arrival per patient. She appears very uncomfortable. She rates the pain 9 out of 10. Worse with deep breath. She does have a history of breast cancer with mets to the lung with a left-sided lung mass. She just recently started chemotherapy treatment on Monday. Associated symptoms include diaphoresis. Cough. No nausea vomiting diarrhea. 1639: Work-up ordered including EKG and serial troponins. We will give nausea medication and morphine. Chest x-ray to start due to patient having a chest CT only 10 days ago. Most likely this pain is due to her lung mass but will rule out cardiac cause, pleural effusion, or any pneumonia pathology. 1641: EKG obtained old EKG available for review within normal limits normal sinus rhythm. No ST elevation or depression no ectopy. 1720: [facility] attending at bedside to attempt ultrasound-guided IV placement. First attempt unsuccessful. At this time pain medications are changed to oral, chest x-ray canceled and noncontrast CT of chest ordered. FINDINGS: Lungs: There is an irregular masslike area of consolidation posteriorly, medially in the left lower lobe abutting the posterior pleura. This measures at least 6 cm in its superior to inferior extent as measured on sagittal reformatted image 36. It measures at least 6.6 by 3.4 cm in maximum diameter as measured on series 4, image 411. It is contiguous with the inferior aspect of the left pulmonary hilum also previously identified. It has progressively increased in size when compared with October. No other definite new pulmonary parenchymal mass or nodule is identified. Pleural space: Unremarkable. No pneumothorax. No pleural effusion. Heart: Heart is not significantly enlarged. There is no evidence of pericardial effusion. Aorta: Vascular calcification is seen within the thoracic aorta which is nonaneurysmal. Lymph nodes: There are small mediastinal, hilar nodes. Liver: Evaluation of the visceral organs is limited without IV contrast. There are however hypodense hepatic lesions which could represent hepatic metastases. The largest is seen within the lateral segment left lobe of the liver measuring approximately 2.6 cm in diameter on series 3, image 541. Bones/joints: Degenerative changes are seen in the thoracic spine. No definite acute or destructive bony abnormality is identified. Soft tissues: There is a peripherally calcified lesion noted within the lateral right breast measuring approximately 2 cm in maximum diameter. This is unchanged No other significant subcutaneous abnormality is identified. IMPRESSION: 1. When compared with prior examinations dating back to October there has been continued interval increase in size of mass like area of consolidation posteriorly, medially in the lower lobe which is contiguous with the inferior aspect of the left pulmonary hilum. The findings are consistent with neoplasm. 2. Evaluation of the liver is limited without contrast but there are findings highly suspicious for interval development of hepatic metastases. 190: Oncologist at [facility] paged to discuss patient's CT findings and discuss placing patient on pain medication. 1904: Lab at for blood draw, Labs are largely within normal limits and at baseline no significant change. Her sodium is 132. This is not significant enough for attempt to place IV and have parental replacement. 1999: Spoke with Dr. Han at [facility] with he Madie discussed details of patient's CT results, vital signs exam and labs. Also discussed plan for sending patient home with stronger pain relief medication she does suggest oxycodone or Percocet. Also suggested discussing Port-A-Cath placement due to having to stick patient at least 5?[address] Han concurred and verbalized understanding. She does agree with the plan and suggest patient keeping her follow-up appointment with her PCP and her primary oncologist. At this time there is no acute reason that patient needs to be admitted no significant change in her condition largely this visit was for pain control. Patient was prescribed number fourteen 5/325 mg of Percocet and instructed on opioid safety. Discussed strict return instructions, verbalized understanding. Medical Records Medical records reviewed: Yes I reviewed the patient's medical records. Medical records narrative: Medical records from Dr. Reis encounter from 01-21-20 from physician of heme oncology at [facility] were reviewed. I will contact her oncologist. HPI General Mode of arrival: ambulatory. Date/Time Provider Initiated Documentation: 01/26/20 16:15. Limitations to Documentation: no limitations. Information obtained by: patient. HPI Narrative: 59-year-old female presents to the ED with left-sided anterior and posterior chest pain. This got worse approximately 30 minutes prior to arrival per patient. She appears very uncomfortable. She rates the pain 9 out of 10. Worse with deep breath. She does have a history of breast cancer with mets to the lung with a left-sided lung mass. She just recently started chemotherapy treatment on Monday. Associated symptoms include diaphoresis. Cough. No nausea vomiting diarrhea. Related Data Home Medications Medication Instructions Recorded Confirmed Calcium 600 + D(3) 1 cap PO DAILY 04/04/19 01/26/20 fluticasone propionate 1 spray INTRANASAL DAILY 04/04/19 01/26/20 losartan 50 mg PO DAILY 04/04/19 01/26/20 sodium chloride [Deep Sea Nasal] 0 ml NS QID PRN PRN #0 ml 04/10/19 01/26/20 Eliquis 5 mg PO BID 01/06/20 01/26/20 oxycodone-acetaminophen 1 tab PO Q6H PRN #14 tab 01/26/20 Previous Rx's Medication Instructions Recorded sodium chloride [Deep Sea Nasal] 0 ml NS QID PRN PRN #0 ml 04/10/19 oxycodone-acetaminophen 1 tab PO Q6H PRN #14 tab 01/26/20 Allergies Allergy/AdvReac Type Severity Reaction Status Date / Time Sulfa (Sulfonamide Allergy Severe HIVES, Unverified 01/26/20 16:24 Antibiotics) ITCHING, BURNING sulfamethoxazole Allergy Intermediate Skin Rash Unverified 01/26/20 16:24 [From Bactrim] trimethoprim [From Bactrim] Allergy Intermediate Skin Rash Unverified 01/26/20 16:24 Penicillins Allergy Mild Skin Rash Unverified 01/26/20 16:24 General Stated Complaint: SOB NAHID: 3 Review of Systems Narrative: Constitutional: Negative for weight loss, alert and oriented, well groomed, normal body habitus, appears non-comfortable. Positive diaphoresis. HEENT: Denies trauma, headaches, blurry vision, nasal discharge, sore throat, trouble swallowing. Chest: Denies palpitations, irregular rhythm, hypertension. Respiratory: Denies hemoptysis. Has history of left sided lung mass. GI: Denies abdominal pain, nausea, vomiting, diarrhea, constipation. : Denies dysuria, hematuria, flank pain, rectal bleeding. Neuro: Denies dizziness, blurry vision, weakness, syncope, headache or facial numbness. Hematologic: Denies easy bruising, intolerance to heat or cold, hair loss. [facility] Medical History Deep venous thrombosis of upper extremity (Inactive) Right HTN (hypertension) (Chronic) Infiltrating ductal carcinoma of breast, stage 3 (Chronic) Metastatic breast cancer (Acute) Left Surgical History Breast, Mastectomy (Inactive) Right partial mastectomy, with sentinel lymph node biopsy, then completion ALND Family History Mother No problems noted. Father No problems noted. Social History Smoking/Tobacco Use Status: Current every day Tobacco Type: cigarettes Alcohol Intake: never Drug use: Never Substance use type: does not use Do you feel safe at home: Yes Do you feel safe in your relationship?: Yes Exam Narrative Exam Narrative: Constitutional: Alert and oriented x3. Appears stated age. Normal body habitus. Slight diaphoresis. Head: Normocephalic, no trauma. Eyes: Pupils PERRLA, Red reflex noted, EOM's intact. Eyelids symmetrical without lesions, discharge, or swelling. ENT: Bilateral TM's WNL, External ear normal to inspection, no mastoid TTP, swelling, or erythema, Nasal turbinates WNL, no nasal discharge. Normal dentition, Posterior pharynx WNL, no exudate. Chest: RRR, Normal S1, S2, distal pulses intact. Resp: Patient is splinting with deep breath. She does have some mild rales noted to her right lower and left lower lobes. Musculoskeletal: Normal gait, 5/5 strength to all four extremities. Skin: No suspicious rashes or lesions. Capillary refill less than 2 sec. Neurologic: Cranial nerves II-XII intact. Alert and oriented x 3. DTR's intact. Hematologic/Lymphatic: No ecchymosis, no lymphadenopathy. Course Vital Signs Vital signs: Vital Signs Temperature 36.8 C 01/26/20 16:21 Pulse 96 H 01/26/20 16:21 Respiratory Rate 18 01/26/20 16:21 Blood Pressure 117/70 01/26/20 16:21 Pulse Oximetry 99 01/26/20 16:21 Temperature 36.8 C 01/26/20 16:21 Temperature Source Oral 01/26/20 16:21 Pulse 96 H 01/26/20 16:21 Respiratory Rate 18 01/26/20 16:26 Respiratory Effort 01/26/20 16:26 Respiratory Depth Normal 01/26/20 16:26 Respiratory Pattern Normal 01/26/20 16:26 Blood Pressure 117/70 01/26/20 16:21 Blood Pressure Position Sitting 01/26/20 16:21 Pulse Oximetry 99 01/26/20 16:21 Oxygen Delivery Method Room Air 01/26/20 16:21 Oxygen Flow Rate 0 01/26/20 16:21 Pain Level 10 01/26/20 16:21
--- NOTE | 2020-01-26 17:15 | DI.CT_ITS ---
EXAM: CT CHEST WO CLINICAL HISTORY: Lung mass, chest pain, h/o breast ca TECHNIQUE: Imaging protocol: Axial computed tomography images were obtained and coronal and sagittal reformatted images were created and reviewed. COMPARISON: CT CHEST WO from 04/04/2019 CT CHEST/ABD/PEL WO from 10/16/2019 FINDINGS: Tracheobronchial tree: Patent where visualized. Mediastinum and Bettie: No dominant adenopathy or fluid collection. Pulmonary parenchyma: The left lower lobe mass measures 7.0 cm transverse by 3.5 cm AP x 7.0 cm crani ocaudad. This compares to 5.5 x 2.8 x 4.2 cm on the prior examination. The mass extends to involve the inferior aspect of the left pulmonary hilum which is unchanged. No new pulmonary masses or focal consolidating infiltrates are seen. Pleura: No effusion or pneumothorax. Heart: The heart is not dilated. No coronary artery calcifications are seen. No pericardial effusion is present. Aorta: Thoracic aorta non-dilated. Atherosclerosis. Upper abdomen: Since the prior examination, there have developed rounded areas of decreased attenuat ion in the liver. The largest is seen in the left lobe measures 2.6 cm in diameter. Lymph nodes: Stable small mediastinal lymph nodes are present. Bones:Degenerative changes. IMPRESSION: 1. Interval increase in size of the left lower lobe mass since 10/16/2019. The findings are consisten t with neoplasm. 2. Interval development of hypodense lesions seen within the liver suspicious for hepatic metastases. RADIATION DOSE DELIVERED: Total DLP Total DLP DATA REPOSITORY: All CT scans at this facility are submitted to the National Radiology Data Registry (NRDR) Dose Index Registry (DIR) with the [employer] (ACR). RADIATION OPTIMIZATION: All CT scans at this facility use at least one of these dose optimization te chniques: automated exposure control; mA and/or kV adjustment per patient size (includes targeted exa ms where dose is matched to clinical indication); or iterative reconstruction.
[2020-01-26] MEDS: oxyCODONE 5 mg/Acetaminophen 325 mg TAB 2 TAB PO (17:21)
[2020-01-26] MEDS: Ondansetron O.D.T. 4 MG TABEF PO (17:22)
--- NOTE | 2020-01-26 18:25 | DI.VRAD_ITS ---
PROCEDURE INFORMATION: Exam: CT Chest Without Contrast Exam date and time: 01/26/2020 5:43 PM Age: 59 years old Clinical indication: Shortness of breath; Prior surgery; Surgery type: Mastectomy TECHNIQUE: Imaging protocol: Computed tomography of the chest without contrast. COMPARISON: CT CHEST/ABD/PEL WO 10/16/2019 9:46 AM patient had more recent examination from 01/06/2020 FINDINGS: Lungs: There is an irregular masslike area of consolidation posteriorly, medially in the left lower lobe abutting the posterior pleura. This measures at least 6 cm in its superior to inferior extent as measured on sagittal reformatted image 36. It measures at least 6.6 by 3.4 cm in maximum diameter as measured on series 4, image 411. It is contiguous with the inferior aspect of the left pulmonary hilum also previously identified. It has progressively increased in size when compared with October. No other definite new pulmonary parenchymal mass or nodule is identified. Pleural space: Unremarkable. No pneumothorax. No pleural effusion. Heart: Heart is not significantly enlarged. There is no evidence of pericardial effusion. Aorta: Vascular calcification is seen within the thoracic aorta which is nonaneurysmal. Lymph nodes: There are small mediastinal, hilar nodes. Liver: Evaluation of the visceral organs is limited without IV contrast. There are however hypodense hepatic lesions which could represent hepatic metastases. The largest is seen within the lateral segment left lobe of the liver measuring approximately 2.6 cm in diameter on series 3, image 541. Bones/joints: Degenerative changes are seen in the thoracic spine. No definite acute or destructive bony abnormality is identified. Soft tissues: There is a peripherally calcified lesion noted within the lateral right breast measuring approximately 2 cm in maximum diameter. This is unchanged No other significant subcutaneous abnormality is identified. IMPRESSION: 1. When compared with prior examinations dating back to October there has been continued interval increase in size of mass like area of consolidation posteriorly, medially in the lower lobe which is contiguous with the inferior aspect of the left pulmonary hilum. The findings are consistent with neoplasm. 2. Evaluation of the liver is limited without contrast but there are findings highly suspicious for interval development of hepatic metastases. Dictated and Authenticated by: Mary Grace Thibodeaux MD. Ordering:QUOC Webb MD
[2020-01-26 19:00] LABS: Abs Immature Grans 0.02 k/cumm (0.0-0.09); Absolute Basophil Count 0.01 k/cumm (0.0-0.2); Absolute Eosinophil Count 0.22 k/cumm (0.0-0.7); Absolute Lymphocyte Count 0.87 k/cumm (1.2-3.4); Absolute Monocyte Count 0.11 k/cumm (0.11-0.7); Absolute Neutrophil Count 5.64 k/cumm (1.2-6.7); Basophils % 0.1; Eosinophils % 3.2; HCT 37.6 % (36.0-46.0); HGB 12.6 g/dL (12.0-15.5); Immature Grans % 0.3 %; Lymphocytes % 12.7; Mean Corp. HGB Concentration 33.5 g/dL (32.0-36.0); Mean Corpuscular Hemoglobin 28.7 pg (27.0-33.0); Mean Corpuscular Volume 85.6 fL (80-95); Mean Platelet Volume 9.4 fL (8.0-11.0); Monocytes % 1.6; Neutrophils % 82.1; Platelet Count 323 x1000/uL (130-400); RBC 4.39 m/cumm (4.00-5.20); RBC Distribution Width 13.1 % (11.7-14.6); White Blood Cell Count 6.87 k/cumm (4.4-10.8)
[2020-01-26 19:02] VITALS: BP 119/70; PULSE 67; RESP 16; O2SAT 97
[2020-01-26 19:22] LABS: ALT 39 U/L (14-59); AST 32 U/L (15-37); Albumin 3.3 g/dL (3.4-5.0); Alkaline Phosphatase 86 U/L (46-116); Anion Gap 7.9 mmol/L (3-11); BUN 28 mg/dL (7-18); Bilirubin, Total 0.8 mg/dL (0.2-1.0); CO2 27.1 mmol/L (21.0-32.0); CREATININE 1.64 mg/dL (0.55-1.02); Calcium 9.4 mg/dL (8.5-10.1); Chloride 97 mmol/L (98-107); Estimated GFR 31.96 (mL/min/1.73m2); Glucose 102 mg/dL (74-106); Magnesium 1.8 mg/dL (1.8-2.4); Potassium 4.4 mmol/L (3.5-5.1); Sodium 132 mmol/L (136-145); Total Protein 7.4 g/dL (6.4-8.2)
[2020-01-26 19:27] LABS: Troponin I < 0.05 ng/Ml (<0.06)
[2020-01-26 20:10] VITALS: BP 119/70; PULSE 67; RESP 16; O2SAT 97
== END 2020-01-26 20:15 | disposition home or self-care (01) ==
PROVIDERS: Emergency Provider Registered Nurse Emergency; PCP Nurse Practitioner Family
DX: R91.8 Other nonspecific abnormal finding of lung field (principal); G89.3 Neoplasm related pain (acute) (chronic); I10 Essential (primary) hypertension
CPT/HCPCS: 71250; 80053; 93005; 99284; 83735; 84484; 85025; 93010

== ENCOUNTER 2020-03-05 03:19 | Outpatient (CLI) | payer OTHER, SELFPAY ==
[2020-03-05 12:23] LABS: Abs Immature Grans 0.02 k/cumm (0.0-0.09); Absolute Basophil Count 0.01 k/cumm (0.0-0.2); Absolute Eosinophil Count 0.08 k/cumm (0.0-0.7); Absolute Lymphocyte Count 1.23 k/cumm (1.2-3.4); Absolute Neutrophil Count 3.89 k/cumm (1.2-6.7); Basophils % 0.2; Eosinophils % 1.4; HCT 32.7 % (36.0-46.0); HGB 11.1 g/dL (12.0-15.5); Immature Grans % 0.3 %; Lymphocytes % 21.1; Mean Corp. HGB Concentration 33.9 g/dL (32.0-36.0); Mean Corpuscular Hemoglobin 30.6 pg (27.0-33.0); Mean Corpuscular Volume 90.1 fL (80-95); Mean Platelet Volume 8.9 fL (8.0-11.0); Monocytes % 10.3; Neutrophils % 66.7; Platelet Count 303 x1000/uL (130-400); RBC 3.63 m/cumm (4.00-5.20); RBC Distribution Width 16.6 % (11.7-14.6); White Blood Cell Count 5.83 k/cumm (4.4-10.8)
[2020-03-05 13:05] LABS: ALT 33 U/L (14-59); AST 22 U/L (15-37); Albumin 3.3 g/dL (3.4-5.0); Alkaline Phosphatase 89 U/L (46-116); Anion Gap 8.1 mmol/L (3-11); BUN 16 mg/dL (7-18); Bilirubin, Total 0.3 mg/dL (0.2-1.0); CO2 23.9 mmol/L (21.0-32.0); CREATININE 1.64 mg/dL (0.55-1.02); Calcium 8.4 mg/dL (8.5-10.1); Chloride 108 mmol/L (98-107); Estimated GFR 31.96 (mL/min/1.73m2); Glucose 92 mg/dL (74-106); Potassium 3.5 mmol/L (3.5-5.1); Sodium 140 mmol/L (136-145); Total Protein 6.5 g/dL (6.4-8.2)
== END 2020-03-05 03:39 ==
PROVIDERS: PCP Nurse Practitioner Family
DX: C50.911 Malignant neoplasm of unspecified site of right female breast (principal)
CPT/HCPCS: 36415; 80053; 85025

== ENCOUNTER 2020-03-26 02:56 | Outpatient (CLI) | payer OTHER, SELFPAY ==
[2020-03-26 13:59] LABS: Abs Immature Grans 0.01 k/cumm (0.0-0.09); Absolute Basophil Count 0.04 k/cumm (0.0-0.2); Absolute Eosinophil Count 0.94 k/cumm (0.0-0.7); Absolute Lymphocyte Count 1.57 k/cumm (1.2-3.4); Absolute Monocyte Count 0.71 k/cumm (0.11-0.7); Basophils % 0.6; Eosinophils % 15.2; HGB 11.6 g/dL (12.0-15.5); Immature Grans % 0.2 %; Lymphocytes % 25.4; Mean Corp. HGB Concentration 35.2 g/dL (32.0-36.0); Mean Corpuscular Hemoglobin 32.6 pg (27.0-33.0); Mean Corpuscular Volume 92.7 fL (80-95); Mean Platelet Volume 9.5 fL (8.0-11.0); Monocytes % 11.5; Neutrophils % 47.1; Platelet Count 267 x1000/uL (130-400); RBC 3.56 m/cumm (4.00-5.20); RBC Distribution Width 19.9 % (11.7-14.6); White Blood Cell Count 6.17 k/cumm (4.4-10.8)
[2020-03-26 15:40] LABS: ALT 26 U/L (14-59); AST 23 U/L (15-37); Albumin 3.8 g/dL (3.4-5.0); Alkaline Phosphatase 87 U/L (46-116); Anion Gap 10.3 mmol/L (3-11); BUN 17 mg/dL (7-18); Bilirubin, Total 0.4 mg/dL (0.2-1.0); CO2 22.7 mmol/L (21.0-32.0); CREATININE 1.71 mg/dL (0.55-1.02); Chloride 105 mmol/L (98-107); Estimated GFR 30.45 (mL/min/1.73m2); Glucose 99 mg/dL (74-106); Potassium 3.3 mmol/L (3.5-5.1); Sodium 138 mmol/L (136-145); Total Protein 6.6 g/dL (6.4-8.2)
== END 2020-03-26 03:16 ==
PROVIDERS: PCP Nurse Practitioner Family; Visit Provider Nurse Practitioner Family
DX: C50.411 Malignant neoplasm of upper-outer quadrant of right female breast (principal)
CPT/HCPCS: 36415; 80053; 85025

== ENCOUNTER 2020-03-30 14:59 | Emergency (ER) | payer OTHER, SELFPAY ==
[2020-03-30] VITALS (31 sets, daily range): BP systolic 118–168; BP diastolic 61–83; PULSE 66–115; RESP 11–25; TEMP 36.7; O2SAT 98–100
--- NOTE | 2020-03-30 15:15 | DI.CT_ITS ---
EXAM: CT ABDOMEN PELVIS WO CLINICAL HISTORY: epigastric/RUQ/LUQ/periumbilical abd pain. TECHNIQUE: Imaging Protocol: Axial computed tomography images with coronal and sagittal reformatted images were created and reviewed. COMPARISON: CT CHEST WITH CONTRAST from 12/07/2012 NM WHOLE BODY BONE SCAN from 01/15/2014 CT CHEST WITH CONTRAST from 01/15/2014 DX XR DEXA BONE DENSITY W/WO FALLON from 11/06/[address] CHEST LUNG CANCER SCREEN from 01/16/[address] CHEST/ABD/PEL W from 07/04/[address] CHEST/ABD/PEL WO from 10/16/[address] CHEST PE ABD PELVIS W from 01/06/2020 CT,NM NM BONE SCAN WHOLE BODY GRP from 01/08/2020 FINDINGS: There is patient motion artifact. ABDOMEN: Lung Bases: Scarring and fibrosis is seen in the left lung base. There also is an infiltrate seen in the left lower lobe which may represent atelectasis or pneumonia. Liver: There is a 1.7 cm area of decreased attenuation in the lateral segment of the left lobe of the liver. The liver is normal in size. Gallbladder and biliary tract: No radiodense calculus or biliary ductal dilation. Pancreas: Normal density, no abnormal calcifications or inflammatory process. Spleen: Normal. Kidneys: Normal size, contour and axis.No radiodense stones or obstructive uropathy. There is a quest ion of a 1.3 cm area of decreased attenuation in the anterior aspect of the superior pole of the righ t kidney. (Series 3, image 253). There is mild haziness around the right kidney. This may be due t o motion artifact but an inflammatory infectious process should also be considered. Adrenal glands: No mass is seen. Lymph nodes: Within normal limits. Abdominal Aorta: Abdominal portion non-dilated. Mild atherosclerosis. PELVIS: Bladder:Symmetric distention, no gross wall thickening. Bowel: No evidence of obstruction. There is mild bowel wall thickening seen in the distal small alec l. Normal appendix. Note is made of a duodenal diverticulum adjacent to the pancreatic head. Peritoneal cavity: No ascites, collection or mesenteric inflammatory response Reproductive organs: Within normal limits. Bones: Degenerative changes are seen in the spine particularly at the L5-S1 disc space. The lytic le tina in the L5 vertebral body with a thin sclerotic rim is unchanged compared to the prior examinatio ns. Soft Tissues: Within normal limits. IMPRESSION: 1. 1.3 cm area of decreased attenuation in the anterior aspect of the superior pole of the right kidn ey. This is not well visualized on this noncontrast examination. A postcontrast CT scan should be c onsidered for further evaluation. 2. Mild thickening of the wall of the ileum suspicious for an infectious or inflammatory ileitis. 3. Question of mild haziness around the right kidney. Infectious or inflammatory process such as radha lonephritis cannot be excluded. 4. Infiltrate in the left lower lobe which may represent atelectasis or pneumonia. RADIATION DOSE DELIVERED: Total DLP DATA REPOSITORY: All CT scans at this facility are submitted to the National Radiology Data Registry (NRDR) Dose Index Registry (DIR) with the [employer] (ACR). RADIATION OPTIMIZATION: All CT scans at this facility use at least one of these dose optimization te chniques: automated exposure control; mA and/or kV adjustment per patient size (includes targeted exa ms where dose is matched to clinical indication); or iterative reconstruction.
--- NOTE | 2020-03-30 15:15 | DI.US_ITS ---
EXAM: US ABDOMEN LIMITED CLINICAL HISTORY: r/o cholelithiasis, cholecystitis TECHNIQUE: Ultrasound abdomen performed using standard protocol. COMPARISON: CT CT CHEST/ABD/PEL WO from 10/16/[address] CHEST PE ABD PELVIS W from 01/06/2020 FINDINGS: ABDOMINAL AORTA AND IVC: Not visualized on this examination due to overlying bowel. PANCREAS: Normal where visualized. LIVER: Normal. Hepatopedal flow in the Portal Vein. GALLBLADDER: No evidence of cholelithiasis. No evidence of wall thickening. No pericholecystic fluid identified. BILIARY SYSTEM: Common bile duct measures 3.1 mm. No intrahepatic biliary ductal dilation. JOHNSON'S SIGN: Negative. KIDNEYS: The right kidney was evaluated. No evidence of renal calculi. No evidence of hydronephrosis . There is a 1.3 x 1.2 x 1.1 cm hypoechoic lesion in the superior pole of the right kidney. Sonograp hically, does not meet the criteria for simple cyst. ASCITES: None seen. IMPRESSION: 1. No evidence of cholelithiasis or cholecystitis. 2. 1.3 cm hypoechoic lesion in the superior pole of the right kidney. Sonographically, this does not meet the criteria for simple cyst. A CT scan of the kidneys prior to and following contrast adminis tration is recommended for further evaluation. DATA REPOSITORY:
--- NOTE | 2020-03-30 15:15 | W.ED.GENAD ---
Discharge Plan Disposition Patient Disposition: HOME Condition: Improving Discharge Details Chief Complaint: Abd Prob Clinical Impression: Epigastric abdominal pain, Hypokalemia, Hypomagnesemia Primary Care Provider: Aries Kuhn ED Provider: Nayla Watts Home Meds and New Rx's Prescriptions: New famotidine [Pepcid] 20 mg tablet 20 mg PO DAILY Qty: 14 RF: 0 ondansetron 4 mg tablet,disintegrating 4 mg PO TID PRN (Reason: nausea and vomiting) Qty: 6 RF: 0 Continued Calcium 600 + D(3) 600 mg calcium- 200 unit Capsule 1 cap PO DAILY RF: 0 sodium chloride [Deep Sea Nasal] 0.65 % Aerosol,Macy 0 ml NS QID PRN PRNQty: 0 RF: 0 Eliquis 5 mg Tablet 5 mg PO BID RF: 0 bupropion HCl [Wellbutrin XL] 150 mg Tablet Extended Release 24 Hr 150 mg PO DAILY RF: 0 Discharge Instructions Instructions: Hypokalemia (ED), Hypomagnesemia (ED), Epigastric Pain (ED) Additional Instructions: Drink plenty of fluids and get plenty of rest. Take the Pepcid or Tylenol as needed and directed for pain. Take the Zofran as needed and directed for nausea and vomiting. You can continue your Imodium as needed directed for diarrhea. Call surgery tomorrow for a follow-up appointment for reevaluation and for consideration for outpatient endoscopy. Follow-up with your primary care doctor in 1 week. Return to the emergency department with any worsening or new concerning symptoms. Referrals: Mary Grace Bustamante MD [ [facility] STAFF PHYSICIAN] - Discharge Data Discharge Date/Time-TO BE ENTERED AT DEPARTURE: 03/30/20 20:00 Discharge Physician: Nayla Watts Medical Decision Making 1510 -- 59-year-old female with a history of metastatic breast cancer to the lung, hypertension and chronic tobacco smoking presents with intermittent sharp upper abdominal pain since last night. Heart rate 110s. She is afebrile and appears nontoxic. She has tenderness to palpation in the epigastrium, right upper quadrant, left upper quadrant and periumbilical region. No rebound tenderness. EKG notes a rate of 87, sinus with less than [address] depression in lead I and V6 but no acute ST elevation. Differential diagnosis includes gastritis, gastroenteritis, peptic ulcer disease, pancreatitis, cholelithiasis, cholecystitis, appendicitis, less likely ACS. History and presentation not consistent with PE or dissection. Will place an IV, bolus IV fluids, screening labs, gallbladder ultrasound, CT abdomen pelvis and give a dose of Pepcid, Zofran and reassess. 1630 -- pt reassessed - pt admits to waves of upper abdominal pain. Will give a dose of morphine. 1730 --labs and imaging reviewed. Normal white blood cell count, potassium 2.8, likely due to her chronic diarrhea. Troponin negative. Lipase within normal limits. Gallbladder ultrasound negative for acute findings. 1800 -- CT abdomen and pelvis notes questionable pyelonephritis, suspect ileitis. Urinalysis obtained and notes 5-10 WBCs but sample appears contaminated. Patient reassessed -she still notes occasional episodes of upper abdominal pain. Repeat EKG without acute ST elevation or depression. Repeat troponin negative. Repeat urinalysis notes 3-5 WBCs and like appears contaminated. Patient feels much better and is requesting to go home. She would rather hold on any antibiotics as she has no urinary symptoms, afebrile and normal white blood cell count. Patient placed on care management list to arrange for follow-up appointment with surgery for reevaluation and consideration for upper endoscopy. We will send home with Zofran and Pepcid. Medical Records Medical records reviewed: Yes I reviewed the patient's medical records. Imaging Data Radiologic Study: Radiologist's impression: US Abdomen, Limited; Right Upper Quadrant Exam date and time: 03/30/2020 3:29 PM Age: 59 years old Clinical indication: Abdominal pain; Epigastric TECHNIQUE: Imaging protocol: US abdomen. Real time ultrasound with image documentation. Limited exam focused on the right upper quadrant. COMPARISON: US renal 08/31/2018 9:50 AM FINDINGS: Liver: There is fatty infiltration of the liver. Gallbladder: The gallbladder is within normal limits. Common bile duct: There is no evidence of intrahepatic or extrahepatic biliary ductal dilatation. The common bile duct is normal measuring 3 mm. Pancreas: The visualized portions of the pancreas are unremarkable. Right kidney: The right kidney is normal measuring 10.0 cm in length. There is a small hypoechoic lesion within the upper pole of the right kidney measuring up to 1.3 cm. This was not present on the earlier study. IMPRESSION: 1. Fatty infiltration of the liver. 2. Small hypoechoic lesion in the upper pole of the right kidney can be re-evaluated with CT scan of the kidneys pre and postcontrast administration utilizing thin sections through the kidneys to assess for any enhancement. CT Abdomen And Pelvis Without Contrast Exam date and time: 03/30/2020 5:03 PM Age: 59 years old Clinical indication: Abdominal pain; Other: Ruq, luq, periumbilical; Patient HX: Epigastric/ruq/luq/periumbilical abd pain TECHNIQUE: Imaging protocol: Computed tomography of the abdomen and pelvis without contrast. Other contrast: Oral; COMPARISON: US ABDOMEN LIMITED 03/30/2020 4:04 PM FINDINGS: Lungs: There is fibrosis and scarring the left lung base. There is increased density within the left lung base which could represent some degree of atelectasis. A small underlying infiltrate is not totally excluded. Heart: The visualized portions of the heart and pericardium are within normal limits. Liver: The liver is within normal limits. Gallbladder and bile ducts: The gallbladder is unremarkable. Pancreas: The pancreas is unremarkable. Spleen: The spleen is within normal limits. Adrenals: The adrenal glands are unremarkable. Kidneys and ureters: The left kidney appears within normal limits. There is haziness at the level of the right renal pelvis. Right pyelonephritis is not totally excluded. Clinical correlation is recommended. The lesion that was seen within the right kidney on the prior ultrasound examination is not seen on the CT scan. Stomach and bowel: There is slight mucosal thickening ileal loops. This is suspicious for ileitis. Clinical correlation is recommended. Appendix: The appendix is visualized and is within normal limits. Intraperitoneal space: Unremarkable. No free air. No significant fluid collection. Vasculature: There are phleboliths within the pelvis. There are arteriosclerotic changes of the aorta. Lymph nodes: No enlarged lymph nodes. Bladder: The urinary bladder is within normal limits. Reproductive: The uterus and ovaries are within normal limits. Bones/joints: There are degenerative changes of the thoracic and lumbar spines. There is degenerative disc disease at L5-S1. Soft tissues: Unremarkable. IMPRESSION: 1. Question right pyelonephritis. Clinical correlation is recommended. 2. Suspect ileitis as above. 3. Osseous findings as above. Lab Data Lab results reviewed: Yes I reviewed the patient's lab results. Labs: 03/30/20 19:17 Urine - Voided Urine Culture - Pending Laboratory Tests Range/Units 03/30/20 03/30/20 03/30/20 15:30 15:30 17:48 WBC (4.4-10.8) k/cumm 5.37 RBC (4.00-5.20) m/cumm 3.80 L Hgb (12.0-15.5) g/dL 12.4 Hct (36.0-46.0) % 35.6 L MCV (80-95) fL 93.7 MCH (27.0-33.0) pg 32.6 MCHC (32.0-36.0) g/dL 34.8 RDW (11.7-14.6) % 20.4 H Plt Count (130-400) x1000/uL 325 MPV (8.0-11.0) fL 9.0 Immature Gran % % 0.2 Neutrophils % 58.1 Lymphocytes % 19.9 Monocytes % 13.8 Eosinophils % 7.4 Basophils % 0.6 Absolute Neutrophils (1.2-6.7) k/cumm 3.12 Absolute Lymphocytes (1.2-3.4) k/cumm 1.07 L Absolute Monocytes (0.11-0.7) k/cumm 0.74 H Absolute Eosinophils (0.0-0.7) k/cumm 0.40 Absolute Basophils (0.0-0.2) k/cumm 0.03 Sodium (136-145) mmol/L 140 Potassium (3.5-5.1) mmol/L 2.8 L* Chloride (98-107) mmol/L 104 Carbon Dioxide (21.0-32.0) mmol/L 22.9 Anion Gap (3-11) mmol/L 13.1 H BUN (7-18) mg/dL 15 Creatinine (0.55-1.02) mg/dL 1.73 H Estimated GFR/1.73 m2 (mL/min/1.73m2) 30.04 Glucose (74-106) mg/dL 112 H Calcium (8.5-10.1) mg/dL 9.3 Magnesium (1.8-2.4) mg/dL 1.5 L Total Bilirubin (0.2-1.0) mg/dL 0.7 AST (15-37) U/L 27 ALT (14-59) U/L 29 Alkaline Phosphatase (46-116) U/L 86 Troponin I (<0.06) ng/mL < 0.05 Total Protein (6.4-8.2) g/dL 7.0 Albumin (3.4-5.0) g/dL 3.7 Lipase (73-393) U/L 319 Urine Color (Yellow) Yellow Urine Clarity (Clear) Sl cloudy Urine pH (5-8) 6.0 Ur Specific [place] (1.005-1.025) 1.020 Urine Protein (Negative) mg/dL Trace H Urine Ketones (Negative) mg/dL Negative Urine Blood (Negative) Negative Urine Nitrite (Negative) Negative Urine Bilirubin (Negative) Negative Urine Urobilinogen (Up TO 0.2) EU/dL 0.2 Ur Leukocyte Esterase (Negative) Small H Urine RBC (0-2) HPF 3-5 H Urine WBC (0-5) HPF 5-10 Ur Epithelial Cells (Negative) HPF Many Urine Crystals (Negative) HPF Negative Urine Bacteria (Negative) HPF Few Urine Casts (Negative) LPF 10-20 hyaline Urine Mucus (Negative) Moderate Ur Culture Indicated? No/sq. contamination Urine Glucose (Negative) mg/dL Negative Range/Units 03/30/20 03/30/20 18:39 19:12 WBC (4.4-10.8) k/cumm RBC (4.00-5.20) m/cumm Hgb (12.0-15.5) g/dL Hct (36.0-46.0) % MCV (80-95) fL MCH (27.0-33.0) pg MCHC (32.0-36.0) g/dL RDW (11.7-14.6) % Plt Count (130-400) x1000/uL MPV (8.0-11.0) fL Immature Gran % % Neutrophils % Lymphocytes % Monocytes % Eosinophils % Basophils % Absolute Neutrophils (1.2-6.7) k/cumm Absolute Lymphocytes (1.2-3.4) k/cumm Absolute Monocytes (0.11-0.7) k/cumm Absolute Eosinophils (0.0-0.7) k/cumm Absolute Basophils (0.0-0.2) k/cumm Sodium (136-145) mmol/L Potassium (3.5-5.1) mmol/L Chloride (98-107) mmol/L Carbon Dioxide (21.0-32.0) mmol/L Anion Gap (3-11) mmol/L BUN (7-18) mg/dL Creatinine (0.55-1.02) mg/dL Estimated GFR/1.73 m2 (mL/min/1.73m2) Glucose (74-106) mg/dL Calcium (8.5-10.1) mg/dL Magnesium (1.8-2.4) mg/dL Total Bilirubin (0.2-1.0) mg/dL AST (15-37) U/L ALT (14-59) U/L Alkaline Phosphatase (46-116) U/L Troponin I (<0.06) ng/mL < 0.05 Total Protein (6.4-8.2) g/dL Albumin (3.4-5.0) g/dL Lipase (73-393) U/L Urine Color (Yellow) Yellow Urine Clarity (Clear) Sl cloudy Urine pH (5-8) 6.0 Ur Specific [place] (1.005-1.025) 1.015 Urine Protein (Negative) mg/dL Negative Urine Ketones (Negative) mg/dL Negative Urine Blood (Negative) Negative Urine Nitrite (Negative) Negative Urine Bilirubin (Negative) Negative Urine Urobilinogen (Up TO 0.2) EU/dL 0.2 Ur Leukocyte Esterase (Negative) Trace H Urine RBC (0-2) HPF 3-5 H Urine WBC (0-5) HPF 3-5 Ur Epithelial Cells (Negative) HPF Many Urine Crystals (Negative) HPF Negative Urine Bacteria (Negative) HPF Rare Urine Casts (Negative) LPF Urine Mucus (Negative) Negative Ur Culture Indicated? No/sq. contamination Urine Glucose (Negative) mg/dL Negative ECG Data Attestation: I personally reviewed and interpreted this ECG (s) as follows: Interpretation: #1 -- Rate of 87, sinus, less than 1mm ST depression lead I and V6, no acute ST elevation, GA 130. QTc 419. QRS 90. #2 -- Rate of 75, sinus, no acute ST elevation or depression. GA 130. QTc 422. QRS 90. HPI General Mode of arrival: ambulatory. Date/Time Provider Initiated Documentation: 03/30/20 15:12. Limitations to Documentation: no limitations. Information obtained by: patient. HPI Narrative: Patient is a 59-year-old female with a history of metastatic breast cancer to the lung, hypertension, chronic tobacco smoker who presents for intermittent sharp upper abdominal pain since last night. She states the pain is worse with eating. She states the pain is currently 0/10. She states the pain became worse after eating macaroni and cheese last night and has not eaten anything since half a piece of toast this morning. She states she has been on chemotherapy for her breast and lung cancer for the [facility] in [place] for the past year, and states she has been on a new chemotherapy regimen since last month. She states she has chronic nausea and diarrhea due to her chemotherapy and states is no worse than usual. She denies any fever, vomiting, chest pain, shortness of breath, cough, urinary symptoms. She states she was told by her friend that her symptoms are likely due to her gallbladder so she came here to have this evaluated. Related Data Home Medications Medication Instructions Recorded Confirmed Calcium 600 + D(3) 1 cap PO DAILY 04/04/19 03/30/20 sodium chloride [Deep Sea Nasal] 0 ml NS QID PRN PRN #0 ml 04/10/19 03/30/20 Eliquis 5 mg PO BID 01/06/20 03/30/20 bupropion HCl [Wellbutrin XL] 150 mg PO DAILY 03/30/20 03/30/20 famotidine [Pepcid] 20 mg PO DAILY #14 tab 03/30/20 ondansetron 4 mg PO TID PRN #6 tab 03/30/20 Previous Rx's Medication Instructions Recorded sodium chloride [Deep Sea Nasal] 0 ml NS QID PRN PRN #0 ml 04/10/19 famotidine [Pepcid] 20 mg PO DAILY #14 tab 03/30/20 ondansetron 4 mg PO TID PRN #6 tab 03/30/20 Allergies Allergy/AdvReac Type Severity Reaction Status Date / Time Sulfa (Sulfonamide Allergy Severe HIVES, Unverified 03/30/20 15:08 Antibiotics) ITCHING, BURNING sulfamethoxazole Allergy Intermediate Skin Rash Unverified 03/30/20 15:08 [From Bactrim] trimethoprim [From Bactrim] Allergy Intermediate Skin Rash Unverified 03/30/20 15:08 Penicillins Allergy Mild Skin Rash Unverified 03/30/20 15:08 General Stated Complaint: Abd Prob NAHID: 3 Review of Systems All systems reviewed & are unremarkable except as noted in HPI and below Constitutional Constitutional: Reports as per HPI, Denies chills and Denies fever(s) Eyes Eyes: Denies blurry vision ENT Ears, Nose, Mouth, and Throat: Denies dizziness, Denies sore throat and Denies throat swelling Cardiovascular Cardiovascular: Denies chest pain and Denies dyspnea Respiratory Respiratory: Denies cough and Denies dyspnea Gastrointestinal Gastrointestinal: Reports abdominal pain, Reports diarrhea, Reports nausea and Denies vomiting Genitourinary Genitourinary: Denies hematuria and Denies dysuria Musculoskeletal Musculoskeletal: Denies back pain and Denies numbness Integumentary/Breasts Skin/Breast: Denies lesions and Denies rash Neurologic Neurologic: Denies dizziness, Denies localized weakness and Denies numbness Allergic/Immunologic Allergic/Immunologic: Denies throat swelling PFSH Social History Smoking/Tobacco Use Status: Current every day Tobacco Type: cigarettes Alcohol Intake: never Drug use: Never Substance use type: does not use Do you feel safe at home: Yes Do you feel safe in your relationship?: Yes Exam Const General: cooperative, healthy appearing and no acute distress HENMT Head: normal to inspection Face and sinus: normal facial exam Eyes General: appearance normal, both eyes and all related structures EOM: EOM intact bilaterally Neck Neck: normal visual inspection and No submandibular swelling Lymphatic: no lymphadenopathy noted Chest Chest: normal inspection of the chest and no tenderness Resp Effort & Inspection: normal respiratory effort and able to speak in complete sentences Auscultation: clear to auscultation bilaterally Cardio Rate: regular rate Rhythm: regular rhythm GI Inspection: normal to inspection Palpation: soft, not firm, not rigid and tender in the epigastrum, in the LUQ, in the RUQ and periumbilically Auscultation: hypoactive bowel sounds Back/Spine/Pelvis Back: no CVA tenderness Skin General skin exam: no rashes or lesions noted Neuro General: patient alert, patient awake and patient oriented x3 Cognition: normal cognition Speech: speech normal Motor: muscle tone normal throughout Sensory Exam: no sensory deficits noted Extrem General: normal to inspection, full ROM, capillary refill normal, no calf tenderness bilaterally and no edema Psych Appearance: grossly normal Mental Status: mental status grossly normal Speech and Movement: speech and movement normal Affect: normal affect Course Vital Signs Vital signs: Vital Signs Temperature 98.1 F 03/30/20 15:04 Pulse 115 H 03/30/20 15:04 Respiratory Rate 14 03/30/20 15:04 Blood Pressure 154/83 H 03/30/20 15:04 Pulse Oximetry 98 03/30/20 15:04 Temperature 98.1 F 03/30/20 15:04 Pulse 115 H 03/30/20 15:04 Respiratory Rate 14 03/30/20 15:04 Blood Pressure 154/83 H 03/30/20 15:04 Blood Pressure Position Sitting 03/30/20 15:04 Pulse Oximetry 98 03/30/20 15:04 Oxygen Delivery Method Room Air 03/30/20 15:04 Oxygen Flow Rate 0 03/30/20 15:04 Pain Level 0 03/30/20 15:04
[2020-03-30] MEDS: Normal Saline 1,000 ML 1000 ML IV (15:47)
[2020-03-30 15:48] LABS: Abs Immature Grans 0.01 k/cumm (0.0-0.09); Absolute Basophil Count 0.03 k/cumm (0.0-0.2); Absolute Lymphocyte Count 1.07 k/cumm (1.2-3.4); Absolute Monocyte Count 0.74 k/cumm (0.11-0.7); Absolute Neutrophil Count 3.12 k/cumm (1.2-6.7); Basophils % 0.6; Eosinophils % 7.4; HCT 35.6 % (36.0-46.0); HGB 12.4 g/dL (12.0-15.5); Immature Grans % 0.2 %; Lymphocytes % 19.9; Mean Corp. HGB Concentration 34.8 g/dL (32.0-36.0); Mean Corpuscular Hemoglobin 32.6 pg (27.0-33.0); Mean Corpuscular Volume 93.7 fL (80-95); Monocytes % 13.8; Neutrophils % 58.1; Platelet Count 325 x1000/uL (130-400); RBC Distribution Width 20.4 % (11.7-14.6); White Blood Cell Count 5.37 k/cumm (4.4-10.8)
[2020-03-30] MEDS: FAMOTIDINE 20 MG/50 ML BAG 200 MG IVPB (15:48)
[2020-03-30] MEDS: Ondansetron 4 MG/2 ML VIAL IVP (15:48)
[2020-03-30 16:15] LABS: ALT 29 U/L (14-59); AST 27 U/L (15-37); Albumin 3.7 g/dL (3.4-5.0); Alkaline Phosphatase 86 U/L (46-116); Anion Gap 13.1 mmol/L (3-11); BUN 15 mg/dL (7-18); Bilirubin, Total 0.7 mg/dL (0.2-1.0); CO2 22.9 mmol/L (21.0-32.0); CREATININE 1.73 mg/dL (0.55-1.02); Calcium 9.3 mg/dL (8.5-10.1); Chloride 104 mmol/L (98-107); Estimated GFR 30.04 (mL/min/1.73m2); Glucose 112 mg/dL (74-106); Magnesium 1.5 mg/dL (1.8-2.4); Sodium 140 mmol/L (136-145)
[2020-03-30 16:16] LABS: Potassium 2.8 mmol/L (3.5-5.1); Troponin I < 0.05 ng/mL (<0.06)
[2020-03-30 16:23] LABS: Lipase 319 U/L (73-393)
[2020-03-30] MEDS: Potassium Chloride 20 MEQ TABCR 40 MEQ PO (16:24)
[2020-03-30] MEDS: POTASSIUM CHLORIDE 20 MEQ/100 ML BAG 50 MEQ IVPB (16:25)
--- NOTE | 2020-03-30 16:32 | DI.VRAD_ITS ---
PROCEDURE INFORMATION: Exam: US Abdomen, Limited; Right Upper Quadrant Exam date and time: 03/30/2020 3:29 PM Age: 59 years old Clinical indication: Abdominal pain; Epigastric TECHNIQUE: Imaging protocol: US abdomen. Real time ultrasound with image documentation. Limited exam focused on the right upper quadrant. COMPARISON: US renal 08/31/2018 9:50 AM FINDINGS: Liver: There is fatty infiltration of the liver. Gallbladder: The gallbladder is within normal limits. Common bile duct: There is no evidence of intrahepatic or extrahepatic biliary ductal dilatation. The common bile duct is normal measuring 3 mm. Pancreas: The visualized portions of the pancreas are unremarkable. Right kidney: The right kidney is normal measuring 10.0 cm in length. There is a small hypoechoic lesion within the upper pole of the right kidney measuring up to 1.3 cm. This was not present on the earlier study. IMPRESSION: 1. Fatty infiltration of the liver. 2. Small hypoechoic lesion in the upper pole of the right kidney can be re-evaluated with CT scan of the kidneys pre and postcontrast administration utilizing thin sections through the kidneys to assess for any enhancement. Dictated and Authenticated by: Martin Del Toro MD. Ordering:SALOME Winslow MD
--- NOTE | 2020-03-30 17:39 | DI.VRAD_ITS ---
PROCEDURE INFORMATION: Exam: CT Abdomen And Pelvis Without Contrast Exam date and time: 03/30/2020 5:03 PM Age: 59 years old Clinical indication: Abdominal pain; Other: Ruq, luq, periumbilical; Patient HX: Epigastric/ruq/luq/periumbilical abd pain TECHNIQUE: Imaging protocol: Computed tomography of the abdomen and pelvis without contrast. Other contrast: Oral; COMPARISON: US ABDOMEN LIMITED 03/30/2020 4:04 PM FINDINGS: Lungs: There is fibrosis and scarring the left lung base. There is increased density within the left lung base which could represent some degree of atelectasis. A small underlying infiltrate is not totally excluded. Heart: The visualized portions of the heart and pericardium are within normal limits. Liver: The liver is within normal limits. Gallbladder and bile ducts: The gallbladder is unremarkable. Pancreas: The pancreas is unremarkable. Spleen: The spleen is within normal limits. Adrenals: The adrenal glands are unremarkable. Kidneys and ureters: The left kidney appears within normal limits. There is haziness at the level of the right renal pelvis. Right pyelonephritis is not totally excluded. Clinical correlation is recommended. The lesion that was seen within the right kidney on the prior ultrasound examination is not seen on the CT scan. Stomach and bowel: There is slight mucosal thickening ileal loops. This is suspicious for ileitis. Clinical correlation is recommended. Appendix: The appendix is visualized and is within normal limits. Intraperitoneal space: Unremarkable. No free air. No significant fluid collection. Vasculature: There are phleboliths within the pelvis. There are arteriosclerotic changes of the aorta. Lymph nodes: No enlarged lymph nodes. Bladder: The urinary bladder is within normal limits. Reproductive: The uterus and ovaries are within normal limits. Bones/joints: There are degenerative changes of the thoracic and lumbar spines. There is degenerative disc disease at L5-S1. Soft tissues: Unremarkable. IMPRESSION: 1. Question right pyelonephritis. Clinical correlation is recommended. 2. Suspect ileitis as above. 3. Osseous findings as above. Dictated and Authenticated by: Martin Del Toro MD. Ordering:SALOME Winslow MD
[2020-03-30 17:58] LABS: Bilirubin Negative (Negative); Blood Negative (Negative); Clarity Sl Cloudy (Clear); Glucose Negative (Negative); Ketones Negative (Negative); Leukocyte Esterase Small (Negative); Nitrite Negative (Negative); Urobilinogen 0.2 EU/dL (Up TO 0.2)
[2020-03-30 18:18] LABS: Bacteria Few HPF (Negative); C & S Indicated? No/Sq. Contamination; Casts 10-20 Hyaline LPF (Negative); Crystals Negative HPF (Negative); Epithelial Cells Many HPF (Negative); Mucus Moderate (Negative)
[2020-03-30 18:59] LABS: Troponin I < 0.05 ng/mL (<0.06)
[2020-03-30 19:25] LABS: Bilirubin Negative (Negative); Blood Negative (Negative); Clarity Sl Cloudy (Clear); Glucose Negative (Negative); Ketones Negative (Negative); Leukocyte Esterase Trace (Negative); Nitrite Negative (Negative); Specific Gravity 1.015 (1.005-1.025); Urobilinogen 0.2 EU/dL (Up TO 0.2)
[2020-03-30] MEDS: Magnesium Oxide 400 MG TAB 800 MG PO (19:28)
[2020-03-30 19:32] LABS: Bacteria Rare HPF (Negative); C & S Indicated? No/Sq. Contamination; Crystals Negative HPF (Negative); Epithelial Cells Many HPF (Negative); Mucus Negative (Negative)
== END 2020-03-30 20:00 | disposition home or self-care (01) ==
PROVIDERS: Emergency Provider Physician Assistant; PCP Nurse Practitioner Family
DX: R10.13 Epigastric pain (principal); E87.6 Hypokalemia; E83.42 Hypomagnesemia; I10 Essential (primary) hypertension; C50.919 Malignant neoplasm of unspecified site of unspecified female breast; C78.00 Secondary malignant neoplasm of unspecified lung; Z79.899 Other long term (current) drug therapy; F17.210 Nicotine dependence, cigarettes, uncomplicated
CPT/HCPCS: 36415; 80053; 83690; 93005; 96361; 96365; 96366; 96375; 99285; 74176; 76705; 81003; 81015; 83735; 84484; 85025; 87086; 93010; J2405; J3480

== ENCOUNTER 2020-04-08 10:33 | Outpatient (RCR) | payer BC, SELFPAY ==
[2020-04-08 13:31] LABS: HCT 37.5 % (36.0-46.0); HGB 13.2 g/dL (12.0-15.5); Mean Corp. HGB Concentration 35.2 g/dL (32.0-36.0); RBC 4.12 m/cumm (4.00-5.20); RBC Distribution Width 20.7 % (11.7-14.6); White Blood Cell Count 11.71 k/cumm (4.4-10.8)
[2020-04-08 13:42] LABS: ALT 18 U/L (14-59); AST 18 U/L (15-37); Albumin 2.6 g/dL (3.4-5.0); Alkaline Phosphatase 64 U/L (46-116); Anion Gap 15.7 mmol/L (3-11); BUN 36 mg/dL (7-18); Bilirubin, Total 0.7 mg/dL (0.2-1.0); CO2 19.3 mmol/L (21.0-32.0); CREATININE 2.41 mg/dL (0.55-1.02); Calcium 8.4 mg/dL (8.5-10.1); Chloride 95 mmol/L (98-107); Estimated GFR 20.49 (mL/min/1.73m2); Glucose 160 mg/dL (74-106); Sodium 130 mmol/L (136-145); Total Protein 6.2 g/dL (6.4-8.2)
[2020-04-08 13:53] LABS: Potassium 2.8 mmol/L (3.5-5.1)
[2020-04-08 14:08] LABS: Absolute Monocyte Count 1.41 k/cumm (0.11-0.7); Absolute Neutrophil Count 8.55 k/cumm (1.2-6.7); Platelet Count 548 x1000/uL (130-400)
[2020-04-08 14:09] LABS: Absolute Lymphocyte Count 1.76 k/cumm (1.2-3.4); Anisocytosis 2+; Atypical Lymphocytes % 5; Diff Comment Manual Differential; Polychromasia Present; Promyelocytes % 0 %
== END 2020-05-01 23:59 | disposition home or self-care (01) ==
LOC: INF 10:33
PROVIDERS: PCP Nurse Practitioner Family; Visit Provider Nurse Practitioner Family
DX: C50.919 Malignant neoplasm of unspecified site of unspecified female breast (principal)
CPT/HCPCS: 36415; 80053; 85025

== ENCOUNTER 2020-04-08 13:23 | Inpatient (IN) | payer BC, SELFPAY ==
[2020-04-08] VITALS (73 sets, daily range): BP systolic 109–155; BP diastolic 47–106; PULSE 67–110; RESP 12–24; TEMP 36.5–36.8; O2SAT 94–100
--- NOTE | 2020-04-08 13:30 | RT.EKG_ITS ---
APPROVED REPORT Exam: Resting ECG Patient Location: E HR:104 bpm ECG Measurements Heart Rate 104 AXIS MS 122 P 71 QRSd 87 QRS 1 QT 327 T 160 QTc 429 <Conclusion> Sinus tachycardia...rate 104 LVH with secondary repolarization abnormality...multi-LVH criteria, abnrm ST-T with t wave inversions I and AvL, ? subtle stsegment depressions v4-5
--- NOTE | 2020-04-08 13:45 | DI.RAD_ITS ---
EXAM: XR CHEST 2V PA LATERAL CLINICAL HISTORY: weakness TECHNIQUE: 2D digital imaging was performed. COMPARISON: CT CT CHEST WO from 01/26/[address] ABDOMEN PELVIS WO from 03/30/2020 FINDINGS: MEDIASTINUM: Normal. HEART: Normal. PULMONARY VASCULATURE: Normal. LUNGS: Clear. The previous CT show a showed a l medial left basilar infiltrate. This is not visible on the current plain film. PLEURAL SPACE: No pleural effusion or pneumothorax. BONE:Normal. OTHER FINDINGS:Normal. IMPRESSION: No acute pulmonary findings. DATA REPOSITORY: RADIATION DOSE DELIVERED:
--- NOTE | 2020-04-08 14:07 | W.ED.GENAD ---
Discharge Plan Disposition Patient Disposition: [facility] INPATIENT Condition: Fair Discharge Details Chief Complaint: GenMedical Clinical Impression: Hypokalemia, Dehydration, Acute on chronic kidney failure, Nausea, Hypocalcemia Admit Date/Time: 04/08/20 20:14 Admit Provider: Silvio Barrientos Attending Provider: Silvio Barrientos Primary Care Provider: Aries Kuhn ED Provider: Yi Briseno Discharge Data Discharge Date/Time-TO BE ENTERED AT DEPARTURE: 04/08/20 21:10 Medical Decision Making <TI Ash - Last Filed: 04/09/20 08:09> 59-year-old female with history of metastatic breast CA, complaining of generalized weakness, dehydration and nausea. She has been seen in the ER 4 times over the last 8 days. She was actually seen in [place], I was able to review those notes, had a negative chest CTA at that time as well. She has not filled her Zofran. Was here to have her routine laboratories drawn and decided to come check into the ER. She appears well, nontoxic. No focal deficit. Will obtain routine laboratory values including troponin, EKG, urinalysis. After speaking with the patient more it sounds as though she is overwhelmed with her overall medical situation. I will have our care management team come speak with the patient. After their discussion, patient does believe that she can safely be discharged home, will follow-up tomorrow for her day surgery appointment as scheduled. She will be given a take-home pack of Zofran. Currently she is pending her IV hydration and IV potassium. Laboratory values otherwise do not reveal any obvious emergent process. Patient appears to have mild, chronic hypokalemia. Will replenish both IV and orally. Given her concern of dehydration, she will receive a second liter of IV fluid. EKG was obtained and reviewed with bob Olmstead STEMI. Medical Records Medical records reviewed: Yes I reviewed the patient's medical records. Imaging Data Radiologic Study: Attestation: I personally reviewed and interpreted this imaging study as follows: Imaging: X-Ray Radiologist's impression: Chest x-ray negative Lab Data Lab results reviewed: Yes I reviewed the patient's lab results. Lab results narrative: Laboratory Tests Range/Units 04/08/20 04/08/20 04/08/20 14:26 14:26 14:26 WBC Cancelled RBC Cancelled Hgb Cancelled Hct Cancelled MCV Cancelled MCH Cancelled MCHC Cancelled RDW Cancelled Plt Count Cancelled MPV Cancelled Immature Gran % Cancelled Neutrophils % Cancelled Band Neutrophils % Cancelled Lymphocytes % Cancelled Atypical Lymphs % Cancelled Monocytes % Cancelled Eosinophils % Cancelled Basophils % Cancelled Metamyelocytes % Cancelled Myelocytes % Cancelled Promyelocytes % Cancelled Absolute Neutrophils Cancelled Absolute Lymphocytes Cancelled Absolute Monocytes Cancelled Absolute Eosinophils Cancelled Absolute Basophils Cancelled Nucleated RBCs Cancelled Differential Comment Cancelled Other Cell Type Cancelled RBC Morphology Cancelled Polychromasia Cancelled Hypochromasia Cancelled Poikilocytosis Cancelled Basophilic Stippling Cancelled Anisocytosis Cancelled Microcytosis Cancelled Macrocytosis Cancelled Spherocytes Cancelled Target Cells Cancelled Tear Drop Cells Cancelled Ovalocytes Cancelled Stomatocytes Cancelled [place] Bodies Cancelled [place] Cells Cancelled Acanthocytes (Spur) Cancelled Schistocytes Cancelled PT (9.3-11.0) sec 12.5 H INR (0.9-1.1) 1.2 H APTT (21.0-31.4) sec 23.2 Sodium Cancelled Potassium Cancelled Chloride Cancelled Carbon Dioxide Cancelled Anion Gap Cancelled BUN Cancelled Creatinine Cancelled Estimated GFR/1.73 m2 Cancelled Glucose Cancelled Calcium Cancelled Magnesium (1.8-2.4) mg/dL 2.4 Total Bilirubin Cancelled AST Cancelled ALT Cancelled Alkaline Phosphatase Cancelled Troponin I (<0.06) ng/mL < 0.05 Total Protein Cancelled Albumin Cancelled Lipase (73-393) U/L 331 <TI Cortes - Last Filed: 04/08/20 22:46> Care transition myself and Denzel Pugh PA-C. Patient is currently receiving IV hydration and IV potassium. Please see Duane Lexy's note regarding initial presentation history. In brief, patient has metastatic cancer. For the past 2 weeks has been having difficulty with weakness. She has been seen at ED x4 between here as well as [facility]. Patient is scheduled to have an EGD tomorrow. She had initially been endorsing abdominal pain. However, on today's exam, primary concern is weakness. Patient was noted to be hypokalemic with a potassium of 2.8. Urinalysis is also pending. Patient has had persistent nausea. Patient was evaluated by care management who advised that we discharge home with Zofran as well as referral for palliative care. Repeat troponin is less than 0.05. I did also add on a repeat BMP. Potassium remains low at 2.8. Sodium 132. Patient's anion gap is improved slightly from 15.7-12 4. Patient also had an acute kidney injury with a creatinine of 2.4, currently down to 2.1. Patient's baseline is 1.7. Calcium is also low at 7.4. Reevaluated the patient. She seems quite upset and frustrated regarding her continued fatigue and nausea. She does appear fatigued but otherwise no acute distress. At this point, patient has been to multiple emergency departments, continues to have electrolyte abnormalities and acute kidney injury. Feel that admission, which again is the patient is not able to stay hydrated while at home, inpatient care would be appropriate. Urinalysis shows elevated specific gravity but otherwise appears contaminated. Dr. Barrientos who agrees to admission. HPI <TI Ash - Last Filed: 04/09/20 08:09> General Mode of arrival: ambulatory. Date/Time Provider Initiated Documentation: 04/08/20 13:25. Limitations to Documentation: no limitations. Information obtained by: patient. HPI Narrative: This is a 59-year-old female with a history of metastatic breast CA, hypertension, acute on chronic renal failure, current smoker, presenting to the ER for evaluation of ongoing generalized weakness, nausea, concern for dehydration. She reports that she was seen here in our ER on the of last month for the same and subsequently evaluated by the ER [facility] twice. Each time she gets IV fluids, feels better for a day or 2 and then ends up in her current situation. She was given a prescription for Zofran but has not filled it. She reports that she was receiving her oncology care here locally but became unhappy with her care and has since looked for a second opinion, establishing care in [place]. She finished her last round of 14-day oral chemotherapy on April 03. She does report that this is not uncommon for her to feel after finishing chemotherapy. She denies any headache, visual changes, neck pain, focal weakness, chest pain, shortness of breath, vomiting over the last few days, numbness, tingling, incontinence. She does report that she has had intermittent diarrhea for the past week or so. She reports that the clinic in [place] requested that she have routine blood work done prior to her next appointment so she came to the hospital today for routine blood draw and while here decided to come to the ER. Related Data Home Medications Medication Instructions Recorded Confirmed Calcium 600 + D(3) 1 cap PO DAILY 04/04/19 04/08/20 Eliquis 5 mg PO BID 01/06/20 04/08/20 bupropion HCl [Wellbutrin XL] 150 mg PO DAILY 03/30/20 04/08/20 famotidine [Pepcid] 20 mg PO DAILY #14 tab 03/30/20 04/08/20 ondansetron 4 mg PO TID PRN #6 tab 03/30/20 04/08/20 Previous Rx's Medication Instructions Recorded famotidine [Pepcid] 20 mg PO DAILY #14 tab 03/30/20 ondansetron 4 mg PO TID PRN #6 tab 03/30/20 Allergies Allergy/AdvReac Type Severity Reaction Status Date / Time Sulfa (Sulfonamide Allergy Severe HIVES, Unverified 04/08/20 13:37 Antibiotics) ITCHING, BURNING sulfamethoxazole Allergy Intermediate Skin Rash Unverified 04/08/20 13:37 [From Bactrim] trimethoprim [From Bactrim] Allergy Intermediate Skin Rash Unverified 04/08/20 13:37 Penicillins Allergy Mild Skin Rash Unverified 04/08/20 13:37 General Stated Complaint: GenMedical NAHID: 3 Review of Systems <TI Ash - Last Filed: 04/09/20 08:09> Constitutional Constitutional: Reports fatigue, Denies fever(s), Denies headache(s) and Reports weakness (Generalized) Eyes Eyes: Denies change in vision ENT Ears, Nose, Mouth, and Throat: Denies headache(s) and Denies sore throat Cardiovascular Cardiovascular: Denies chest pain and Denies dyspnea Respiratory Respiratory: Denies cough and Denies dyspnea Gastrointestinal Gastrointestinal: Denies abdominal pain, Reports nausea and Denies vomiting Genitourinary Genitourinary: Denies dysuria Musculoskeletal Musculoskeletal: Denies back pain, Denies numbness and Denies tingling Integumentary/Breasts Skin/Breast: Denies rash Neurologic Neurologic: Denies headache(s), Denies numbness, Denies tingling and Reports weakness (Generalized) Endocrine Endocrine: Reports fatigue Hematologic/Lymphatic Hematologic/Lymphatic: Denies easy bleeding and Reports easy bruising PFSH <TI Ash - Last Filed: 04/09/20 08:09> Medical History Deep venous thrombosis of upper extremity (Inactive) Right HTN (hypertension) (Chronic) Infiltrating ductal carcinoma of breast, stage 3 (Chronic) Metastatic breast cancer (Acute) Left Surgical History Breast, Mastectomy (Inactive) Right partial mastectomy, with sentinel lymph node biopsy, then completion ALND Family History Mother No problems noted. Father No problems noted. Social History Smoking/Tobacco Use Status: Current every day Tobacco Type: cigarettes Alcohol Intake: never Drug use: Never Substance use type: does not use Do you feel safe at home: Yes Do you feel safe in your relationship?: Yes Exam <TI Ash - Last Filed: 04/09/20 08:09> Const General: cooperative, healthy appearing, comfortable and no acute distress Orientation: alert, awake and oriented x3 HENMT Head: normal to inspection, normocephalic and atraumatic Mouth: moist mucous membranes abnormal (Dry) Throat: posterior oropharynx normal Eyes Conjunctivae: conjunctivae normal Sclera: sclerae normal Neck Neck: normal visual inspection, full ROM, no lymphadenopathy, no meningeal signs, trachea midline and supple Resp Effort & Inspection: normal respiratory effort and able to speak in complete sentences Auscultation: clear to auscultation bilaterally Cardio Rate: regular rate Rhythm: regular rhythm GI Inspection: normal to inspection Palpation: soft, not firm, no guarding, not rigid and nontender Auscultation: normal bowel sounds Back/Spine/Pelvis Back: No back tenderness Skin General skin exam: no rashes or lesions noted Neuro General: patient alert, patient awake, patient oriented x3, moves all extremities and no focal motor deficits Cranial Nerves: CN's II-XI intact bilaterally Cognition: normal cognition Sensory Exam: no sensory deficits noted Extrem General: normal to inspection, full ROM, capillary refill normal, no pedal edema and no calf tenderness Psych Appearance: grossly normal Mental Status: mental status grossly normal Course <TI Ash - Last Filed: 04/09/20 08:09> Vital Signs Vital signs: Vital Signs Temperature 36.5 C 04/08/20 13:32 Pulse 109 H 04/08/20 13:32 Respiratory Rate 22 04/08/20 13:32 Blood Pressure 134/84 04/08/20 13:32 Pulse Oximetry 97 04/08/20 13:32 Temperature 36.5 C 04/08/20 13:32 Temperature Source Tympanic 04/08/20 13:32 Pulse 109 H 04/08/20 13:32 Respiratory Rate 22 04/08/20 13:32 Respiratory Effort Non-Labored 04/08/20 13:36 Blood Pressure 134/84 04/08/20 13:32 Blood Pressure Position Sitting 04/08/20 13:32 Pulse Oximetry 97 04/08/20 13:32 Oxygen Delivery Method Room Air 04/08/20 13:32 Oxygen Flow Rate 0 04/08/20 13:32 Pain Level 0 04/08/20 13:32 Sign Out <TI Ash - Last Filed: 04/09/20 08:09> Sign Out Data: Sign Out Comment: Pending IV hydration, IV potassium, reevaluation and final disposition. Patient is comfortable being discharged home, will follow-up tomorrow as already scheduled. She will follow the instructions given to her by the care management team Last updated by West Pugh PA at 04/08/20 16:42
[2020-04-08] MEDS: Normal Saline 1,000 ML 1000 ML IV ×3 (14:55→20:29)
[2020-04-08 14:56] LABS: PTT Activated 23.2 sec (21.0-31.4); Prothrombin Time 12.5 sec (9.3-11.0)
[2020-04-08 14:58] LABS: INR 1.2 (0.9-1.1)
[2020-04-08 15:01] LABS: Lipase 331 U/L (73-393); Magnesium 2.4 mg/dL (1.8-2.4); Troponin I < 0.05 ng/mL (<0.06)
[2020-04-08] MEDS: Potassium Chloride 20 MEQ TABCR 40 MEQ PO (15:03)
[2020-04-08] MEDS: POTASSIUM CHLORIDE 20 MEQ/100 ML BAG 50 MEQ IVPB (15:03)
[2020-04-08] MEDS: Ondansetron 4 MG/2 ML VIAL IVP (15:03)
--- NOTE | 2020-04-08 16:24 | CMPROGNOTE_ITS ---
- If Service Date Differs Date of service: 04/08/20 Time of Service: 16:24 Care Management Progress Note CM met with Mabel at the request of provider in the ED. Mabel is tearful she states she has not been feeling well including abdominal pain, nausea and unable to eat for the past week. She has had several ED visits including here at [facility] and [place]. She states she has been unable to see her provider to manage her symptoms of nausea and when she contacts the office she is directed to the ED. 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 She does not identify cost as a barrier. She states she is feeling done, and overwhelmed she is afraid she will not be able to return to work and is contemplating disability. She states that she has received treatment at the cancer center ([facility]) in [place] and has frequent follow up with them. She is receptive to palliative care and accepts a referral. She states she does not have the strength to keep going through the episodes of illness. Her support system is her daughter who lives in [place] and she has a friend locally. She states that she does not like to count on her friend for transportation. OLGA did discuss other resources including [facility] and [employer] for transportation when she is unable to drive herself. She does have a car however she has been feeling so ill she has not been able to drive it. CM provided listening and validated concerns. Mabel feels that she can remember her prescription tomorrow and have it filled. 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 She states she is scheduled to have an endoscope on with as well. P: CM faxed referral to palliative care. CM spoke with provider and requested that Mabel be discharged home with a few Zofran tabs. Mabel agrees to the plan and feels that she will be okay at home once she is discharged. Mabel states she has a planned Endo on with . Mabel will consider using [facility] or [employer] for transportation. She will reach out to this CM for questions or concerns related to the plan. OLGA has faxed this note to primary care for close follow up by Aries Kuhn NP.
[2020-04-08 17:41] LABS: Troponin I < 0.05 ng/mL (<0.06)
[2020-04-08 17:42] LABS: Bilirubin Small (Negative); Blood Negative (Negative); Clarity Sl Cloudy (Clear); Glucose Negative (Negative); Ketones Negative (Negative); Leukocyte Esterase Negative (Negative); Nitrite Negative (Negative); Specific Gravity >= 1.030 (1.005-1.025); Urobilinogen 0.2 EU/dL (Up TO 0.2)
[2020-04-08 17:53] LABS: Anion Gap 12.4 mmol/L (3-11); BUN 34 mg/dL (7-18); CO2 20.6 mmol/L (21.0-32.0); Calcium 7.4 mg/dL (8.5-10.1); Chloride 99 mmol/L (98-107); Estimated GFR 24.02 (mL/min/1.73m2); Glucose 108 mg/dL (74-106); Sodium 132 mmol/L (136-145)
[2020-04-08 17:56] LABS: Bacteria Many HPF (Negative); Crystals Negative HPF (Negative); Epithelial Cells Many HPF (Negative); Mucus Trace (Negative); Other Cells Few Transitional (Negative); RBC 0-2 HPF (0-2)
[2020-04-08 17:57] LABS: C & S Indicated? No/Sq. Contamination
[2020-04-08 18:20] LABS: Potassium 2.8 mmol/L (3.5-5.1)
--- NOTE | 2020-04-08 19:48 | W.PM.HP.N ---
Date of service: 04/08/20 Time of Service: 19:48 Assessment and Plan Assessment and plan (1) Nausea: Status: Acute Assessment and plan: There appears to be a subacute issue with nausea on a background of chronic diarrhea, all resulting in present status of dehydration and electrolyte abnormalities. I suspect the chemo is the issue. It is unclear if the CT findings of possible ileitis are chemo related as well or due to some other process, either infectious or inflammatory possibly. It is again noted that stool studies from [facility] (and patient tells me also from PCP) were negative. For now I would continue OIV hydration, prn Zofran and potassium replacement. Would consider colonoscopy to further evaluate iletis, but this can likely be done on outpatient basis. Will check calprotecin in meantime, if normal may obviate need for colo. Reviewed ADs, requests Full Code. History of Present Illness History of Present Illness Chief Complaint: weakness Narrative: 59 female with h/o metastatic breast CA (to lung she reports). On chemo since the fall. reports olngoing diarrhea since that time, which she states has been attributed to the chemo. Has further had several months of nausea, for which she takes Zofran, though she recently ran out, has not refilled the script and has taken none for the past few weeks. Seen [facility] last week, admitted for ongoing weakness and diarrhea. CT showed findings c/w mild ileitis, stool studies all negative. Treated with Cipro and Flagyl, then home on Moxifloxacin. Took for only 2 days, Oncology told her the diarrhea was due to the chemo. She was also seen here one week [employer] for abdominal pain -- which has not been an issue before or since -- and is scheduled for EGD. With that much as background comes here now with persistent weakness and nausea. Findings of note for WBC 11K, azotemia and hypokalemia and concentrated urine. Patient given Zofran with good effect -- states to me she is now feeling hungry -- and IVF. Admitted for further management. Note that CT here 03/30 showed similar findings to [facility] (viz, mild thickening ileal loops); imaging not repeated today in ER. Review of Systems All systems reviewed & are unremarkable except as noted in HPI and below [facility] Medical History Deep venous thrombosis of upper extremity (Inactive) Right HTN (hypertension) (Chronic) Infiltrating ductal carcinoma of breast, stage 3 (Chronic) Metastatic breast cancer (Acute) Left Surgical History Breast, Mastectomy (Inactive) Right partial mastectomy, with sentinel lymph node biopsy, then completion ALND Family History Mother No problems noted. Father No problems noted. Social History Smoking/Tobacco Use Status: Current every day Tobacco Type: cigarettes Alcohol Intake: never Drug use: Never Substance use type: does not use Do you feel safe at home: Yes Do you feel safe in your relationship?: Yes Meds Home Medications and Allergies Home Medications Medication Instructions Recorded Confirmed Type Calcium 600 + D(3) 1 cap PO DAILY 04/04/19 04/08/20 History Eliquis 5 mg PO BID 01/06/20 04/08/20 History bupropion HCl [Wellbutrin XL] 150 mg PO DAILY 03/30/20 04/08/20 History famotidine [Pepcid] 20 mg PO DAILY #14 tab 03/30/20 04/08/20 Rx ondansetron 4 mg PO TID PRN #6 tab 03/30/20 04/08/20 Rx Allergies Allergy/AdvReac Type Severity Reaction Status Date / Time Sulfa (Sulfonamide Allergy Severe HIVES, Unverified 04/08/20 13:37 Antibiotics) ITCHING, BURNING sulfamethoxazole Allergy Intermediate Skin Rash Unverified 04/08/20 13:37 [From Bactrim] trimethoprim [From Bactrim] Allergy Intermediate Skin Rash Unverified 04/08/20 13:37 Penicillins Allergy Mild Skin Rash Unverified 04/08/20 13:37 Exam Narrative Exam Narrative: 135/56, 85, 36.5, 17, 98% RA. HEENT anicteric; neck supple; lungs clear; heart RRR w/o MRG; abdomen soft and NT; extremities w.o edema; neuro Ox3, nonfocal Results Labs Result diagrams: 04/08/20 14:26 04/08/20 17:15 Labs: Laboratory Results - last 24 hr 04/08/20 04/08/20 04/08/20 14:26 14:26 14:26 WBC Cancelled RBC Cancelled Hgb Cancelled Hct Cancelled MCV Cancelled MCH Cancelled MCHC Cancelled RDW Cancelled Plt Count Cancelled MPV Cancelled Immature Gran % Cancelled Neutrophils % Cancelled Band Neutrophils % Cancelled Lymphocytes % Cancelled Atypical Lymphs % Cancelled Monocytes % Cancelled Eosinophils % Cancelled Basophils % Cancelled Metamyelocytes % Cancelled Myelocytes % Cancelled Promyelocytes % Cancelled Absolute Neutrophils Cancelled Absolute Lymphocytes Cancelled Absolute Monocytes Cancelled Absolute Eosinophils Cancelled Absolute Basophils Cancelled Nucleated RBCs Cancelled Differential Comment Cancelled Other Cell Type Cancelled RBC Morphology Cancelled Polychromasia Cancelled Hypochromasia Cancelled Poikilocytosis Cancelled Basophilic Stippling Cancelled Anisocytosis Cancelled Microcytosis Cancelled Macrocytosis Cancelled Spherocytes Cancelled Target Cells Cancelled Tear Drop Cells Cancelled Ovalocytes Cancelled Stomatocytes Cancelled [place] Bodies Cancelled [place] Cells Cancelled Acanthocytes (Spur) Cancelled Schistocytes Cancelled PT 12.5 H INR 1.2 H APTT 23.2 Sodium Cancelled Potassium Cancelled Chloride Cancelled Carbon Dioxide Cancelled Anion Gap Cancelled BUN Cancelled Creatinine Cancelled Estimated GFR/1.73 m2 Cancelled Glucose Cancelled Calcium Cancelled Magnesium 2.4 Total Bilirubin Cancelled AST Cancelled ALT Cancelled Alkaline Phosphatase Cancelled Troponin I < 0.05 Total Protein Cancelled Albumin Cancelled Lipase 331 Urine Color Urine Clarity Urine pH Ur Specific [place] Urine Protein Urine Ketones Urine Blood Urine Nitrite Urine Bilirubin Urine Urobilinogen Ur Leukocyte Esterase Urine RBC Urine WBC Ur Epithelial Cells Urine Crystals Urine Bacteria Urine Casts Urine Mucus Urine Other Ur Culture Indicated? Urine Glucose 04/08/20 04/08/20 04/08/20 17:15 17:15 17:32 WBC RBC Hgb Hct MCV MCH MCHC RDW Plt Count MPV Immature Gran % Neutrophils % Band Neutrophils % Lymphocytes % Atypical Lymphs % Monocytes % Eosinophils % Basophils % Metamyelocytes % Myelocytes % Promyelocytes % Absolute Neutrophils Absolute Lymphocytes Absolute Monocytes Absolute Eosinophils Absolute Basophils Nucleated RBCs Differential Comment Other Cell Type RBC Morphology Polychromasia Hypochromasia Poikilocytosis Basophilic Stippling Anisocytosis Microcytosis Macrocytosis Spherocytes Target Cells Tear Drop Cells Ovalocytes Stomatocytes [place] Bodies Maria T Cells Acanthocytes (Spur) Schistocytes PT INR APTT Sodium 132 L Potassium 2.8 L* Chloride 99 Carbon Dioxide 20.6 L Anion Gap 12.4 H BUN 34 H Creatinine 2.10 H Estimated GFR/1.73 m2 24.02 Glucose 108 H D Calcium 7.4 L Magnesium Total Bilirubin AST ALT Alkaline Phosphatase Troponin I < 0.05 Total Protein Albumin Lipase Urine Color Yellow Urine Clarity Sl cloudy Urine pH 6.0 Ur Specific [place] >= 1.030 H Urine Protein 100 H Urine Ketones Negative Urine Blood Negative Urine Nitrite Negative Urine Bilirubin Small H Urine Urobilinogen 0.2 Ur Leukocyte Esterase Negative Urine RBC 0-2 Urine WBC 3-5 Ur Epithelial Cells Many Urine Crystals Negative Urine Bacteria Many Urine Casts >50 hyaline Urine Mucus Trace Urine Other Few transitional Ur Culture Indicated? No/sq. contamination Urine Glucose Negative Last Vital Signs Temp 36.5 C 04/08/20 13:32 Pulse 78 04/08/20 19:01 Resp 19 04/08/20 19:01 BP 151/73 H 04/08/20 19:01 Pulse Ox 98 04/08/20 19:01 COVID-19 Screening Have you,or anyone in your household, traveled outside of [place] in the last 14 days?: NO Had IN PERSON contact w/suspected or confirmed C-19 person: No
[2020-04-08] MEDS: POTASSIUM CHLORIDE/0.9% NACL 1,000 ML 125 MEQ IV (21:27)
--- NOTE | 2020-04-09 02:33 | NUR.NOTE ---
Nursing Note: Pt is alert and oriented x 3. Admitted in room 226 with presenting problems of weakness and dehydration. Denied of pain. Ambulates to the bathroom independently. Has large bruises on left upper and lower arms.She is hard stick on IV. Lung sounds with scattered rhonchii. [place] with non productive cough. Appetite poor. oriented to call lights system.
[2020-04-09 03:15] VITALS: BP 136/69; PULSE 82; RESP 16; TEMP 36.9; O2SAT 98
[2020-04-09] MEDS: POTASSIUM CHLORIDE/0.9% NACL 1,000 ML 125 MEQ IV ×2 (05:21→15:09)
[2020-04-09] MEDS: Apixaban 5 MG TAB PO ×2 (08:04→19:42)
[2020-04-09] MEDS: buPROPion-XL 150 MG TABCR PO (08:04)
[2020-04-09 08:46] VITALS: BP 141/73; PULSE 65; RESP 18; TEMP 37.5
--- NOTE | 2020-04-09 11:58 | PDOC.CMIN ---
- If Service Date Differs Date of service: 04/09/20 Time of Service: 11:58 Care Management Initial Assess REASON FOR HOSPITALIZATION:: Weakness, dehydration PAST MEDICAL HISTORY/PAST SURGICAL HISTORY:: Deep venous thrombosis of upper extremity (Inactive). Right. HTN (hypertension) (Chronic). Infiltrating ductal carcinoma of breast, stage 3 (Chronic). Metastatic breast cancer (Acute). Left. Surgical History . Breast, Mastectomy (Inactive). Right partial mastectomy, with sentinel lymph node biopsy, then completion ALND PREVIOUS FUNCTIONAL STATUS/SOCIAL/FAMILY SUPPORTS:: Mabel lives in [place] in an apartment. She is indepedent at baseline including with transportatin and ADL's. Her daughter lives in [place]. She reports some good friends in the area that are helpful to her. 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 She wants to be able to work however she states she is going to have to apply for disablity. CURRENT FUNCTIONAL STATUS:: Mabel is alert she is waiting to meet with palliative care. ADVANCE DIRECTIVES:: On file Agent is Ngoc King Has patient been provided with info about the portal/API?: Yes Did the patient sign up for the portal?: No (enrolled) CODE STATUS:: Full Code INSURANCE COVERAGE / FINANCIAL ISSUES:: BCBS CURRENT HOME/COMMUNITY SERVICES/EQUIPMENT:: Oncology, CM faxed a referral to palliative PRIMARY CARE PHYSICIAN:: Aries Kuhn POTENTIAL DISCHARGE NEEDS:: Continued follow up with palliative care and follow up scheduled with primary care. PATIENT/FAMILY EDUCATION NEEDS:: Discharge education, limitations and follow up plan of care including medication management. ANTICIPATED BARRIERS TO DISCHARGE:: No anticiapted barriers TRANSPORTATION:: Via private car at time of discharge. PLAN:: Mabel continues with IV fluids. She continues to need close monitoring of labs related to her low K+. Mabel will be discharged home with no additional services with close follow up with her primary care and continued palliative care.
[2020-04-09 12:31] LABS: COVID-19 RT-PCR UVMMC Result Negative (Negative)
--- NOTE | 2020-04-09 12:52 | W.PALLCONSUL ---
Documented by User: Roxy Cintron NP 04/09/20 14:08 Date of service: 04/09/20 Time of Service: 12:52 History of Present Illness History of Present Illness Chief Complaint: Nausea, diarrhea Narrative: Mabel Ward is a very pleasant 59 year old female with a past medical history significant for right breast cancer (diagnosed 09/26/2012) with lumpectomy and partial mastectomy and lymph node dissection, sentinel node biopsy, also with left lower lobe lung mass- thought to be metastatic disease, as well as a brain lesion for which she recently underwent radiation. She is currently on chemotherapy through [facility] in [place]. Also with a history of HTN and CKD. She presented to the ED with abdominal pain, right-sided, as well as nausea, poor appetite and diarrhea for about a week. Since she has been in the hospital, she has continued to have abdominal pain and nausea, and vomiting. She has been able to tolerate a popsicle today with mild nausea. Nursing has tried to collect a stool, but she has not had diarrhea today. She has lost 50 pounds over the last 3-4 months. She denies any SOB, coughing or wheezing. No CP/pressure, palpitations or edema. She has been going through treatment in [place], [place], at [facility]. She is on her third cycle of chemo, she is on for 2 weeks, off for one. Her last chemo 04/03. Prior to the last week of symptoms, she was feeling well overall. Her oncologist thinks her symptoms are chemo related. She started out with [facility] oncology, she did chemo first for metastatic breast cancer, then the treatment changed to lung cancer treatment, after which she had trouble breathing. She then sought treatment at [facility]. They have not talked about prognosis with her. They did tell her that her cancer is not curable but can be managed. She does not have any contact with [facility] at this point. She had an appointment scheduled for next week for follow up, she is not sure if she will be able to make it at this point. The [facility] flies her down and back for her appointments and gives her a discounted rate at the hotel and shuttle her to her visits. Support: She has a friend, Nicole Pappas, who is a support person for her. She also names her daughter, Ngoc King, as a support person but she is in [place]. GOALS: To get better, to her, getting better means beating cancer. She states she is too young to . Wants to continue treatments for now. She wants to be able to see her daughter and future grandchildren. Maintain a good quality of life and manage symptoms. Stay active, be able to be out and about and do what she wants. 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 She loves her job. She is not sure that she will be able to. Spirituality: She grew up going to the [employer] v[employer] of [place]. She has not been involved in organized temple as an adult. She has some beliefs. Assessment and Plan Assessment and plan (1) Metastatic breast cancer: Status: Acute Assessment and plan: With mets to lung, also with recent brain lesion s/p radiation. Currently undergoing treatment through [facility] in [place]. She is very future oriented with her goals at this point. At this time, she is planning to continue treatment. Care management is working on getting records from her Oncologist. She is not interested in changing her code status at this time, this will be an ongoing conversation. (2) Nausea: Status: Acute Assessment and plan: Continues to have nausea and abdominal discomfort. Encouraged her to ask for antiemetics as needed. (3) Hypokalemia: Status: Acute Assessment and plan: Hospitalist is supplementing potassium. (4) HTN (hypertension): Status: Chronic (5) CKD (chronic kidney disease): Status: Acute (6) Diarrhea: Status: Acute Assessment and plan: Appears to be improving at this point. Awaiting stool sample. (7) Palliative care patient: Status: Acute Assessment and plan: Mabel established with Palliative today. She is interested in follow up with Palliative care. She would benefit from continued conversations about goals of care and code status as well as advanced care planning. Will review oncology notes when available. Will follow up inpatient or outpatient. Review of Systems All systems reviewed & are unremarkable except as noted in HPI and below [facility] Medical History (Updated 04/09/20 @ 16:33 by Ashwini Braden NP) CKD (chronic kidney disease) (Acute) Deep venous thrombosis of upper extremity (Inactive) Right Diarrhea (Acute) HTN (hypertension) (Chronic) Infiltrating ductal carcinoma of breast, stage 3 (Chronic) Metastatic breast cancer (Acute) RIGHT Palliative care patient (Acute) Surgical History Breast, Mastectomy (Inactive) Right partial mastectomy, with sentinel lymph node biopsy, then completion ALND Family History Mother No problems noted. Father No problems noted. Social History Smoking/Tobacco Use Status: Current every day Tobacco Type: cigarettes Alcohol Intake: never Drug use: Never Substance use type: does not use Do you feel safe at home: Yes Do you feel safe in your relationship?: Yes Exam Narrative Exam Narrative: General: middle aged female, well nourished, sitting up in the recliner, appears uncomfortable but in no acute distress. Answers questions appropriately. Speech clear and articulate. Tearful at times. HEENT: normocephalic, atraumatic, pupils equal and round, EOMI, mucous membranes moist. Neck: supple, no JVD. Respiratory: respirations even and unlabored, lung sounds with scattered wheeze, no rales. Cardiovascular: heart with regular rate and rhythm, nontachycardic, no murmur appreciated. GI: abdomen soft, nontender on palpation, normal bowel sounds, nondistended. Extremities: well perfused, no cyanosis or edema. Skin: scattered bruising to LUE from lab draws. Results Last Vital Signs Temp 37.5 C 04/09/20 08:46 Pulse 65 04/09/20 08:46 Resp 18 04/09/20 08:46 BP 141/73 H 04/09/20 08:46 Pulse Ox 98 04/09/20 03:15 Labs Result diagrams: 04/10/20 09:50 04/10/20 09:50 Labs: Laboratory Results - last 24 hr 04/08/20 04/08/20 04/08/20 14:26 14:26 14:26 WBC Cancelled RBC Cancelled Hgb Cancelled Hct Cancelled MCV Cancelled MCH Cancelled MCHC Cancelled RDW Cancelled Plt Count Cancelled MPV Cancelled Immature Gran % Cancelled Neutrophils % Cancelled Band Neutrophils % Cancelled Lymphocytes % Cancelled Atypical Lymphs % Cancelled Monocytes % Cancelled Eosinophils % Cancelled Basophils % Cancelled Metamyelocytes % Cancelled Myelocytes % Cancelled Promyelocytes % Cancelled Absolute Neutrophils Cancelled Absolute Lymphocytes Cancelled Absolute Monocytes Cancelled Absolute Eosinophils Cancelled Absolute Basophils Cancelled Nucleated RBCs Cancelled Differential Comment Cancelled Other Cell Type Cancelled RBC Morphology Cancelled Polychromasia Cancelled Hypochromasia Cancelled Poikilocytosis Cancelled Basophilic Stippling Cancelled Anisocytosis Cancelled Microcytosis Cancelled Macrocytosis Cancelled Spherocytes Cancelled Target Cells Cancelled Tear Drop Cells Cancelled Ovalocytes Cancelled Stomatocytes Cancelled [place] Bodies Cancelled [place] Cells Cancelled Acanthocytes (Spur) Cancelled Schistocytes Cancelled PT 12.5 H INR 1.2 H APTT 23.2 Sodium Cancelled Potassium Cancelled Chloride Cancelled Carbon Dioxide Cancelled Anion Gap Cancelled BUN Cancelled Creatinine Cancelled Estimated GFR/1.73 m2 Cancelled Glucose Cancelled Calcium Cancelled Magnesium 2.4 Total Bilirubin Cancelled AST Cancelled ALT Cancelled Alkaline Phosphatase Cancelled Troponin I < 0.05 Total Protein Cancelled Albumin Cancelled Lipase 331 Urine Color Urine Clarity Urine pH Ur Specific [place] Urine Protein Urine Ketones Urine Blood Urine Nitrite Urine Bilirubin Urine Urobilinogen Ur Leukocyte Esterase Urine RBC Urine WBC Ur Epithelial Cells Urine Crystals Urine Bacteria Urine Casts Urine Mucus Urine Other Ur Culture Indicated? Urine Glucose COVID-19 PCR Nasopharyn COVID-19 PCR Ref Test Perform Site 04/08/20 04/08/20 04/08/20 17:15 17:15 17:32 WBC RBC Hgb Hct MCV MCH MCHC RDW Plt Count MPV Immature Gran % Neutrophils % Band Neutrophils % Lymphocytes % Atypical Lymphs % Monocytes % Eosinophils % Basophils % Metamyelocytes % Myelocytes % Promyelocytes % Absolute Neutrophils Absolute Lymphocytes Absolute Monocytes Absolute Eosinophils Absolute Basophils Nucleated RBCs Differential Comment Other Cell Type RBC Morphology Polychromasia Hypochromasia Poikilocytosis Basophilic Stippling Anisocytosis Microcytosis Macrocytosis Spherocytes Target Cells Tear Drop Cells Ovalocytes Stomatocytes [place] Bodies [place] Cells Acanthocytes (Spur) Schistocytes PT INR APTT Sodium 132 L Potassium 2.8 L* Chloride 99 Carbon Dioxide 20.6 L Anion Gap 12.4 H BUN 34 H Creatinine 2.10 H Estimated GFR/1.73 m2 24.02 Glucose 108 H D Calcium 7.4 L Magnesium Total Bilirubin AST ALT Alkaline Phosphatase Troponin I < 0.05 Total Protein Albumin Lipase Urine Color Yellow Urine Clarity Sl cloudy Urine pH 6.0 Ur Specific [place] >= 1.030 H Urine Protein 100 H Urine Ketones Negative Urine Blood Negative Urine Nitrite Negative Urine Bilirubin Small H Urine Urobilinogen 0.2 Ur Leukocyte Esterase Negative Urine RBC 0-2 Urine WBC 3-5 Ur Epithelial Cells Many Urine Crystals Negative Urine Bacteria Many Urine Casts >50 hyaline Urine Mucus Trace Urine Other Few transitional Ur Culture Indicated? No/sq. contamination Urine Glucose Negative COVID-19 PCR Nasopharyn COVID-19 PCR Ref Test Perform Site 04/08/20 04/08/20 20:49 20:58 WBC RBC Hgb Hct MCV MCH MCHC RDW Plt Count MPV Immature Gran % Neutrophils % Band Neutrophils % Lymphocytes % Atypical Lymphs % Monocytes % Eosinophils % Basophils % Metamyelocytes % Myelocytes % Promyelocytes % Absolute Neutrophils Absolute Lymphocytes Absolute Monocytes Absolute Eosinophils Absolute Basophils Nucleated RBCs Differential Comment Other Cell Type RBC Morphology Polychromasia Hypochromasia Poikilocytosis Basophilic Stippling Anisocytosis Microcytosis Macrocytosis Spherocytes Target Cells Tear Drop Cells Ovalocytes Stomatocytes [place] Bodies Maria T Cells Acanthocytes (Spur) Schistocytes PT INR APTT Sodium Potassium Chloride Carbon Dioxide Anion Gap BUN Creatinine Estimated GFR/1.73 m2 Glucose Calcium Magnesium Total Bilirubin AST ALT Alkaline Phosphatase Troponin I Total Protein Albumin Lipase Urine Color Urine Clarity Urine pH Ur Specific [place] Urine Protein Urine Ketones Urine Blood Urine Nitrite Urine Bilirubin Urine Urobilinogen Ur Leukocyte Esterase Urine RBC Urine WBC Ur Epithelial Cells Urine Crystals Urine Bacteria Urine Casts Urine Mucus Urine Other Ur Culture Indicated? Urine Glucose COVID-19 PCR Cancelled Negative Nasopharyn COVID-19 PCR Cancelled Not Applicable Ref Test Perform Site Cancelled [place] [facility] Documented by User: Irene Lozano MD, DC 04/27/20 12:32 [facility] Medical History (Updated 04/09/20 @ 16:33 by Ashwini Braden NP) CKD (chronic kidney disease) (Acute) Deep venous thrombosis of upper extremity (Inactive) Right Diarrhea (Acute) HTN (hypertension) (Chronic) Infiltrating ductal carcinoma of breast, stage 3 (Chronic) Metastatic breast cancer (Acute) RIGHT Palliative care patient (Acute) Surgical History Breast, Mastectomy (Inactive) Right partial mastectomy, with sentinel lymph node biopsy, then completion ALND Family History Mother No problems noted. Father No problems noted. Social History Smoking/Tobacco Use Status: Current every day Tobacco Type: cigarettes Alcohol Intake: never Drug use: Never Substance use type: does not use Do you feel safe at home: Yes Do you feel safe in your relationship?: Yes Results Labs Result diagrams: 04/10/20 09:50 04/10/20 09:50
[2020-04-09] MEDS: Ondansetron 4 MG/2 ML VIAL IVP (14:20)
--- NOTE | 2020-04-09 14:46 | CHAPLAIN ---
Mabel was reclining in her chair resting when I visited. She quickly engaged in conversation, telling me about her breast cancer, then the breast cancer found in her lungs, the chemo treatments she's been on, along with the side effects of the treatments. Mabel relies on a good friend for rides, and for encouragement. She gives me a kick when I need i t, like when I'm ready to give up, Mabel said. Mabel is also close to her daughter who lives in [place] and recently graduated and received her master's degree in public health. Mabel said she is very proud of her daughter and what keeps her going is the believing the she has unborn grandchildren I need to meet. Through her treatments, Mabel said she is taking things one day at a time. In January she spent some time with he daughter who accompanied Mabel to her appointments at the [facility] in [place].
[2020-04-09 14:51] LABS: HCT 31.8 % (36.0-46.0); Mean Corp. HGB Concentration 34.3 g/dL (32.0-36.0); Mean Corpuscular Hemoglobin 32.4 pg (27.0-33.0); Mean Corpuscular Volume 94.6 fL (80-95); Mean Platelet Volume 8.9 fL (8.0-11.0); Platelet Count 429 x1000/uL (130-400); RBC 3.36 m/cumm (4.00-5.20); RBC Distribution Width 20.9 % (11.7-14.6)
[2020-04-09 15:00] LABS: White Blood Cell Count 6.22 k/cumm (4.4-10.8)
[2020-04-09 15:02] LABS: Anion Gap 11.7 mmol/L (3-11); BUN 27 mg/dL (7-18); CO2 19.3 mmol/L (21.0-32.0); CREATININE 1.69 mg/dL (0.55-1.02); Calcium 7.1 mg/dL (8.5-10.1); Chloride 104 mmol/L (98-107); Estimated GFR 30.87 (mL/min/1.73m2); Glucose 106 mg/dL (74-106); Potassium 3.1 mmol/L (3.5-5.1); Sodium 135 mmol/L (136-145)
[2020-04-09 15:04] LABS: HGB 10.9 g/dL (12.0-15.5)
--- NOTE | 2020-04-09 15:15 | PHA.REVIEW ---
Pharmacy Admission Review - Admission Clinical Review (Last Updated 04/09/20 @ 14:04 by Roxy Cintron NP) Diarrhea (Acute) Palliative care patient (Acute) CKD (chronic kidney disease) (Acute) Metastatic breast cancer (Acute) Hypocalcemia (Acute) Nausea (Acute) Hypokalemia (Acute) Acute on chronic kidney failure (Acute) Dehydration (Acute) Sulfa (Sulfonamide Antibiotics) Allergy (Severe, Unverified 04/08/20 13:37) HIVES, ITCHING, BURNING sulfamethoxazole [From Bactrim] Allergy (Intermediate, Unverified 04/08/20 13:37) Skin Rash trimethoprim [From Bactrim] Allergy (Intermediate, Unverified 04/08/20 13:37) Skin Rash Penicillins Allergy (Mild, Unverified 04/08/20 13:37) Skin Rash Height 5 ft 11 in Weight 95.708 kg - Renal Dosing Renal Dosing: BUN 27 mg/dL (7-18) H 04/09/20 14:40 Creatinine 1.69 mg/dL (0.55-1.02) H 04/09/20 14:40 Medications needing adjustments: Reviewed - Anticoagulation Anticoagulation: Hgb 10.9 g/dL (12.0-15.5) L D 04/09/20 14:40 Hct 31.8 % (36.0-46.0) L 04/09/20 14:40 Plt Count 429 x1000/uL (130-400) H 04/09/20 14:40 INR 1.2 (0.9-1.1) H 04/08/20 14:26 Creatinine 1.69 mg/dL (0.55-1.02) H 04/09/20 14:40 DVT Prohphylaxis: N/A Therapeutic Anticoagulation: Reviewed Medications: Apixaban - Opiate Usage Evaluate Pain Scale/Pains Meds: N/A - Relevant Labs Sodium 135 mmol/L (136-145) L 04/09/20 14:40 Potassium 3.1 mmol/L (3.5-5.1) L 04/09/20 14:40 Chloride 104 mmol/L (98-107) 04/09/20 14:40 Magnesium 2.4 mg/dL (1.8-2.4) 04/08/20 14:26 Electrolytes, C-Reactive P, ESR: Reviewed - DM Control DM Control: Glucose 106 mg/dL (74-106) 04/09/20 14:40 Insulin Dosing: N/A - Heart Failure/MA Heart Failure/MA: Troponin I < 0.05 ng/mL (<0.06) 04/08/20 17:15 EF%, NILA's, B-Blockers, Diuretics: N/A - BP Control BP Control: Blood Pressure 141/73 If elevated: Reviewed - Qtc Review If Elevated: Reviewed - IV to PO Switch IV Medications: Reviewed - Home Meds Home Med List reviewed: Reviewed Relevent Home Meds Not ordered & why?: Hx of Losartan 50mg-- last filled 02/25/20, Folic Acid 1mg -- last filled 02/16, Anoro and albuterol last filled 02/13 - Current meds Current Medication Order Review: Reviewed
[2020-04-09 15:24] VITALS: BP 163/81; PULSE 80; RESP 20; TEMP 37.2; O2SAT 97
[2020-04-09] MEDS: Pantoprazole 40 MG VIAL IVP (15:34)
[2020-04-09] MEDS: Normal Saline Flush 10 ML SYR (15:34)
--- NOTE | 2020-04-09 16:16 | W.PM.PROGNOT ---
Date of Service Date of service: 04/09/20 Time of Service: 16:16 Assessment and Plan Assessment and plan (1) Acute on chronic kidney failure: Status: Acute Assessment and plan: likely pre-renal d/t intractable N/V, chronic diarrhea. was referred to observation for IV hydration and symptom management. Kidney function improved overnight with hydration. will avoid nephrotoxic medication, continue IV until taking PO and monitor. (2) Intractable nausea and vomiting: Status: Acute Assessment and plan: ongoing and likely d/t chemo. she is responding to zofran but po intake remains poor. will continue symptom management. (3) Metastatic breast cancer: Status: Acute Assessment and plan: [facility] by [facility] in [place]. 3 week cycle of Xeloda 2000 mg BID for 14 days then 7 days off. last dose April 03, 2020. palliative care consult placed. (4) Diarrhea: Status: Acute Assessment and plan: chronic and unchanged. calprotectin pending. (5) Hypokalemia: Status: Acute Assessment and plan: d/t GI losses, replete and follow. (6) Pulmonary embolism: Status: Chronic Assessment and plan: history of and is fully anticoagulated on eliquis, oxygenating well on room air. (7) DVT prophylaxis: Status: Acute Assessment and plan: fully anticoagulated on eliquis. (8) Discharge planning issues: Status: Acute Assessment and plan: home when taking PO. will change status to inpatient as she is not improved enough to take PO. Subjective Subjective Patient reports: diarrhea, nausea, vomiting and afebrile; denies shortness of breath Exam Const General: cooperative, no acute distress, disheveled and ill appearing chronically Nutritional Appearance: overweight Orientation: alert, awake and oriented x3 [facility] Head: normal to inspection, normocephalic and atraumatic Mouth: oral mucosa abnormal (dry, no exudates) Resp Effort & Inspection: normal respiratory effort Auscultation: clear to auscultation bilaterally Cardio Rate: regular rate Rhythm: regular rhythm Heart Sounds: no murmurs GI Inspection: normal to inspection and large pannus Palpation: soft Auscultation: normal bowel sounds Skin General skin exam: no rashes or lesions noted Neuro General: patient alert, patient awake and patient oriented x3 Cranial Nerves: CN's II-XI intact bilaterally Extrem General: full ROM Psych Affect: blunted Attitude: cooperative Objective Objective Clinical Data: Abnormal lab results 04/08/20 04/08/20 04/09/20 Range/Units 17:15 17:32 14:40 RBC (4.00-5.20) m/cumm Hgb (12.0-15.5) g/dL Hct (36.0-46.0) % RDW (11.7-14.6) % Plt Count (130-400) x1000/uL Sodium 132 L 135 L (136-145) mmol/L Potassium 2.8 L* 3.1 L (3.5-5.1) mmol/L Carbon Dioxide 20.6 L 19.3 L (21.0-32.0) mmol/L Anion Gap 12.4 H 11.7 H (3-11) mmol/L BUN 34 H 27 H (7-18) mg/dL Creatinine 2.10 H 1.69 H (0.55-1.02) mg/dL Glucose 108 H D (74-106) mg/dL Calcium 7.4 L 7.1 L (8.5-10.1) mg/dL Ur Specific [place] >= 1.030 H (1.005-1.025) Urine Protein 100 H (Negative) mg/dL Urine Bilirubin Small H (Negative) 04/09/20 Range/Units 14:40 RBC 3.36 L (4.00-5.20) m/cumm Hgb 10.9 L D (12.0-15.5) g/dL Hct 31.8 L (36.0-46.0) % RDW 20.9 H (11.7-14.6) % Plt Count 429 H (130-400) x1000/uL Sodium (136-145) mmol/L Potassium (3.5-5.1) mmol/L Carbon Dioxide (21.0-32.0) mmol/L Anion Gap (3-11) mmol/L BUN (7-18) mg/dL Creatinine (0.55-1.02) mg/dL Glucose (74-106) mg/dL Calcium (8.5-10.1) mg/dL Ur Specific [place] (1.005-1.025) Urine Protein (Negative) mg/dL Urine Bilirubin (Negative) Vital Signs Temperature 37.2 C 04/09/20 15:24 Temperature Source Temporal Artery Scan 04/09/20 15:24 Pulse 80 04/09/20 15:24 Pulse Rhythm Regular 04/09/20 08:08 Pulse 76 04/08/20 20:31 Respiratory Rate 20 04/09/20 15:24 Respiratory Effort Non-Labored 04/09/20 08:08 Respiratory Depth Normal 04/09/20 08:08 Respiratory Pattern Normal 04/09/20 08:08 Blood Pressure 163/81 H 04/09/20 15:24 Blood Pressure Mean 72 04/08/20 20:31 Blood Pressure Position Sitting 04/08/20 13:32 Pulse Oximetry 97 04/09/20 15:24 Oxygen Delivery Method Room Air 04/09/20 15:24 Oxygen Flow Rate 0 04/09/20 15:24 Pain Level 0 04/09/20 15:24 Intake & Output 04/08/20 04/09/20 04/09/20 23:59 11:59 23:59 Intake Total 2099 1077.5 / 2077.5 1000 / 7.5 Balance 2099 1077.5 / 2076.5 1000 / 2076.5 Weight 95.708 kg Intake: IV 2099 987.5 / 1986.5 1000 / 1986.5 Oral 90 / 90 Other: Urine Appearance Clear Comment pt states she voided in toilet x1, removed measuring hat. Stool Size Small Stool Characteristics Liquid Laboratory Results WBC 6.22 k/cumm (4.4-10.8) D 04/09/20 14:40 RBC 3.36 m/cumm (4.00-5.20) L 04/09/20 14:40 Hgb 10.9 g/dL (12.0-15.5) L D 04/09/20 14:40 Hct 31.8 % (36.0-46.0) L 04/09/20 14:40 MCV 94.6 fL (80-95) 04/09/20 14:40 MCH 32.4 pg (27.0-33.0) 04/09/20 14:40 MCHC 34.3 g/dL (32.0-36.0) 04/09/20 14:40 RDW 20.9 % (11.7-14.6) H 04/09/20 14:40 Plt Count 429 x1000/uL (130-400) H 04/09/20 14:40 MPV 8.9 fL (8.0-11.0) 04/09/20 14:40 Immature Gran % Cancelled 04/08/20 14:26 Neutrophils % Cancelled 04/08/20 14:26 Band Neutrophils % Cancelled 04/08/20 14:26 Lymphocytes % Cancelled 04/08/20 14:26 Atypical Lymphs % Cancelled 04/08/20 14:26 Monocytes % Cancelled 04/08/20 14:26 Eosinophils % Cancelled 04/08/20 14:26 Basophils % Cancelled 04/08/20 14:26 Metamyelocytes % Cancelled 04/08/20 14:26 Myelocytes % Cancelled 04/08/20 14:26 Promyelocytes % Cancelled 04/08/20 14:26 Absolute Neutrophils Cancelled 04/08/20 14:26 Absolute Lymphocytes Cancelled 04/08/20 14:26 Absolute Monocytes Cancelled 04/08/20 14:26 Absolute Eosinophils Cancelled 04/08/20 14:26 Absolute Basophils Cancelled 04/08/20 14:26 Nucleated RBCs Cancelled 04/08/20 14:26 Differential Comment Cancelled 04/08/20 14:26 Other Cell Type Cancelled 04/08/20 14:26 RBC Morphology Cancelled 04/08/20 14:26 Polychromasia Cancelled 04/08/20 14:26 Hypochromasia Cancelled 04/08/20 14:26 Poikilocytosis Cancelled 04/08/20 14:26 Basophilic Stippling Cancelled 04/08/20 14:26 Anisocytosis Cancelled 04/08/20 14:26 Microcytosis Cancelled 04/08/20 14:26 Macrocytosis Cancelled 04/08/20 14:26 Spherocytes Cancelled 04/08/20 14:26 Target Cells Cancelled 04/08/20 14:26 Tear Drop Cells Cancelled 04/08/20 14:26 Ovalocytes Cancelled 04/08/20 14:26 Stomatocytes Cancelled 04/08/20 14:26 [place] Bodies Cancelled 04/08/20 14:26 Maria T Cells Cancelled 04/08/20 14:26 Acanthocytes (Spur) Cancelled 04/08/20 14:26 Schistocytes Cancelled 04/08/20 14:26 PT 12.5 sec (9.3-11.0) H 04/08/20 14:26 INR 1.2 (0.9-1.1) H 04/08/20 14:26 APTT 23.2 sec (21.0-31.4) 04/08/20 14:26 Sodium 135 mmol/L (136-145) L 04/09/20 14:40 Potassium 3.1 mmol/L (3.5-5.1) L 04/09/20 14:40 Chloride 104 mmol/L (98-107) 04/09/20 14:40 Carbon Dioxide 19.3 mmol/L (21.0-32.0) L 04/09/20 14:40 Anion Gap 11.7 mmol/L (3-11) H 04/09/20 14:40 BUN 27 mg/dL (7-18) H 04/09/20 14:40 Creatinine 1.69 mg/dL (0.55-1.02) H 04/09/20 14:40 Estimated GFR/1.73 m2 30.87 (mL/min/1.73m2) 04/09/20 14:40 Glucose 106 mg/dL (74-106) 04/09/20 14:40 Calcium 7.1 mg/dL (8.5-10.1) L 04/09/20 14:40 Magnesium 2.4 mg/dL (1.8-2.4) 04/08/20 14:26 Total Bilirubin Cancelled 04/08/20 14:26 AST Cancelled 04/08/20 14:26 ALT Cancelled 04/08/20 14:26 Alkaline Phosphatase Cancelled 04/08/20 14:26 Troponin I < 0.05 ng/mL (<0.06) 04/08/20 17:15 Total Protein Cancelled 04/08/20 14:26 Albumin Cancelled 04/08/20 14:26 Lipase 331 U/L (73-393) 04/08/20 14:26 Urine Color Yellow (Yellow) 04/08/20 17:32 Urine Clarity Sl cloudy (Clear) 04/08/20 17:32 Urine pH 6.0 (5-8) 04/08/20 17:32 Ur Specific [place] >= 1.030 (1.005-1.025) H 04/08/20 17:32 Urine Protein 100 mg/dL (Negative) H 04/08/20 17:32 Urine Ketones Negative mg/dL (Negative) 04/08/20 17:32 Urine Blood Negative (Negative) 04/08/20 17:32 Urine Nitrite Negative (Negative) 04/08/20 17:32 Urine Bilirubin Small (Negative) H 04/08/20 17:32 Urine Urobilinogen 0.2 EU/dL (Up TO 0.2) 04/08/20 17:32 Ur Leukocyte Esterase Negative (Negative) 04/08/20 17:32 Urine RBC 0-2 HPF (0-2) 04/08/20 17:32 Urine WBC 3-5 HPF (0-5) 04/08/20 17:32 Ur Epithelial Cells Many HPF (Negative) 04/08/20 17:32 Urine Crystals Negative HPF (Negative) 04/08/20 17:32 Urine Bacteria Many HPF (Negative) 04/08/20 17:32 Urine Casts >50 hyaline LPF (Negative) 04/08/20 17:32 Urine Mucus Trace (Negative) 04/08/20 17:32 Urine Other Few transitional (Negative) 04/08/20 17:32 Ur Culture Indicated? No/sq. contamination 04/08/20 17:32 Urine Glucose Negative mg/dL (Negative) 04/08/20 17:32 COVID-19 PCR Negative (Negative) 04/08/20 20:58 Nasopharyn COVID-19 PCR Not Applicable 04/08/20 20:58 Ref Test Perform Site [facility] lab 04/08/20 20:58
[2020-04-09 16:44] LABS: Magnesium 2.2 mg/dL (1.8-2.4)
[2020-04-09] MEDS: POTASSIUM CHLORIDE 10 MEQ/100 ML BAG 100 MEQ IVPB ×4 (16:56→22:02)
[2020-04-09 21:03] VITALS: BP 136/79; PULSE 89; RESP 19; O2SAT 98
[2020-04-09 22:28] VITALS: TEMP 38
[2020-04-09] MEDS: Acetaminophen 325 MG TAB 650 MG PO (23:00)
[2020-04-09 23:01] VITALS: TEMP 37.6
[2020-04-09 23:29] LABS: Abs Immature Grans 0.03 k/cumm (0.0-0.09); HCT 26.2 % (36.0-46.0); HGB 8.9 g/dL (12.0-15.5); Mean Corpuscular Hemoglobin 32.4 pg (27.0-33.0); Mean Corpuscular Volume 95.3 fL (80-95); Mean Platelet Volume 8.8 fL (8.0-11.0); Platelet Count 334 x1000/uL (130-400); RBC 2.75 m/cumm (4.00-5.20); RBC Distribution Width 20.9 % (11.7-14.6); White Blood Cell Count 5.82 k/cumm (4.4-10.8)
[2020-04-09 23:51] LABS: Absolute Neutrophil Count 3.67 k/cumm (1.2-6.7)
[2020-04-09 23:52] LABS: Absolute Lymphocyte Count 0.99 k/cumm (1.2-3.4); Absolute Monocyte Count 1.16 k/cumm (0.11-0.7); Anisocytosis 2+; Diff Comment Manual Differential; Hypochromasia 1+; Polychromasia Present
[2020-04-09 23:53] LABS: Poikilocytes 1+
[2020-04-10 05:37] VITALS: BP 112/68; PULSE 72; RESP 20; TEMP 36; O2SAT 97
[2020-04-10 07:34] LABS: Bilirubin Negative (Negative); Blood Large (Negative); Clarity Cloudy (Clear); Glucose Negative (Negative); Ketones Negative (Negative); Leukocyte Esterase Small (Negative); Nitrite Negative (Negative); Specific Gravity >= 1.030 (1.005-1.025); Urobilinogen 0.2 EU/dL (Up TO 0.2); pH 5.5 (5-8)
[2020-04-10 07:55] LABS: Bacteria Moderate HPF (Negative); Crystals Negative HPF (Negative); Epithelial Cells Moderate HPF (Negative); Mucus Trace (Negative)
[2020-04-10 07:56] LABS: C & S Indicated? No/Sq. Contamination; Casts 3-5 Coarse Granular LPF (Negative)
[2020-04-10 08:37] VITALS: BP 116/75; PULSE 70; RESP 16; TEMP 36.6; O2SAT 100
[2020-04-10] MEDS: buPROPion-XL 150 MG TABCR PO (08:37)
[2020-04-10] MEDS: Apixaban 5 MG TAB PO (08:37)
[2020-04-10 10:33] LABS: HCT 26.7 % (36.0-46.0); HGB 9.3 g/dL (12.0-15.5); Mean Corp. HGB Concentration 34.8 g/dL (32.0-36.0); Mean Corpuscular Hemoglobin 33.3 pg (27.0-33.0); Mean Corpuscular Volume 95.7 fL (80-95); Mean Platelet Volume 9.1 fL (8.0-11.0); Platelet Count 349 x1000/uL (130-400); RBC 2.79 m/cumm (4.00-5.20); RBC Distribution Width 21.2 % (11.7-14.6); White Blood Cell Count 5.82 k/cumm (4.4-10.8)
[2020-04-10 10:49] LABS: ALT 14 U/L (14-59); AST 13 U/L (15-37); Albumin 1.7 g/dL (3.4-5.0); Alkaline Phosphatase 53 U/L (46-116); Anion Gap 12.8 mmol/L (3-11); BUN 23 mg/dL (7-18); Bilirubin, Total 0.5 mg/dL (0.2-1.0); CO2 16.2 mmol/L (21.0-32.0); CREATININE 1.48 mg/dL (0.55-1.02); Calcium 6.8 mg/dL (8.5-10.1); Chloride 106 mmol/L (98-107); Estimated GFR 35.97 (mL/min/1.73m2); Glucose 92 mg/dL (74-106); Potassium 3.2 mmol/L (3.5-5.1); Sodium 135 mmol/L (136-145); Total Protein 4.4 g/dL (6.4-8.2)
[2020-04-10 10:58] LABS: Absolute Eosinophil Count 0.17 k/cumm (0.0-0.7); Absolute Lymphocyte Count 1.11 k/cumm (1.2-3.4); Absolute Monocyte Count 0.81 k/cumm (0.11-0.7); Absolute Neutrophil Count 3.72 k/cumm (1.2-6.7)
[2020-04-10 10:59] LABS: Diff Comment Manual Differential
[2020-04-10 11:01] LABS: Anisocytosis 2+; Polychromasia Present
--- NOTE | 2020-04-10 11:44 | CMPROGNOTE_ITS ---
- If Service Date Differs Date of service: 04/10/20 Time of Service: 13:00 Care Management Progress Note S/O: Mabel remains inpatient, CM continues to follow. A: 59 year old female admitted to [facility] 04/08/20 for weakness and dehydration P: Mabel continues to require close monitoring. She will be discharged home with no additional services and close follow up with her primary care, [facility] and Palliative care.
--- NOTE | 2020-04-10 11:56 | DSE_ITS ---
Date of service: 04/10/20 Time of Service: 11:56 DS: Diagnosis Discharge Diagnosis (1) Acute on chronic kidney failure: Status: Acute (2) Intractable nausea and vomiting: Status: Acute (3) Metastatic breast cancer: Status: Acute (4) Diarrhea: Status: Acute (5) Hypokalemia: Status: Acute (6) Pulmonary embolism: Status: Chronic Discharge Plan Disposition Patient Disposition: HOME Condition: Fair Discharge Details Chief Complaint: GenMedical Clinical Impression: Hypokalemia, Dehydration, Acute on chronic kidney failure, Nausea, Hypocalcemia Reason For Visit: WEAKNESS,DEHYDRATION Admit Date/Time: 04/08/20 20:14 Admit Provider: Silvio Barrientos Attending Provider: Silvio Barrientos Primary Care Provider: Aries Kuhn ED Provider: Yi Briseno [facility] Course Hospital Course: This is a 59 female with a history of metastatic breast cancer treated at [facility] with capecitabin 2000 mg po bid since the fall, 14 days on, 7 days off, who is anticoagulated on eliquis for history of pulmonary embolism who reports to the ED with ongoing diarrhea, nausea and vomiting which she has had for several months. She has a refill prescription of Zofran at home but has not had it filled yet, she has been out for several weeks. She has been seen here and at [facility] last week, where she was admitted for ongoing weakness and diarrhea. CT showed findings c/w mild ileitis, stool studies all negative, she was treated with Cipro and Flagyl, then home on Moxifloxacin. Took for only 2 da ys, Oncology told her the diarrhea was due to the chemo. She was scheduled for EGD but was cancelled as she was admitted here. Work up in the ED showed WBC 11K, azotemia and hypokalemia and concentrated urine. Patient given Zofran and IV fluids and was referred to observation status. She experienced recurrence of symptoms requiring IV antiemetics and fluids. Today her symptoms as markedly improved. She is tolerating an advance diet. Potassium replaced. She is scheduled to follow up April 14 in [facility] at the cancer treatment [facility]. She would like to post pone that appointment and I did recommend she call her team to discuss recommendations regarding rescheduling deferring to outpatient team. I will repeat her BMP on Monday, April 13, 2020. of note, she was noted to have a temp of 38.0 last evening with no source of fever identified. blood cultures are pending. case discussed with Dr Infante who is in agreement with plan Home Meds and New Rx's Prescriptions: Continued Calcium 600 + D(3) 600 mg calcium- 200 unit Capsule 1 cap PO DAILY RF: 0 Eliquis 5 mg Tablet 5 mg PO BID RF: 0 bupropion HCl [Wellbutrin XL] 150 mg Tablet Extended Release 24 Hr 150 mg PO DAILY RF: 0 famotidine [Pepcid] 20 mg tablet 20 mg PO DAILY Qty: 14 RF: 0 ondansetron 4 mg tablet,disintegrating 4 mg PO TID PRN (Reason: nausea and vomiting) Qty: 12 RF: 0 Discharge Instructions Instructions: Chemo Induced Nausea and Vomiting (DC) Additional Instructions: Keep scheduled appointments with oncology. Stand Alone Forms: Nursing Discharge Form Referrals: Aries Kuhn NP [Primary Care Provider] - Activity:: Activity as Tolerated Equipment/Supplies:: No Equipment Needed Diet:: As Tolerated Discharge Orders Discharge Orders: Discharge Order (Routine); Ordered 04/10/20 Ordered By: Ashwini Braden Other Ambulatory Orders: Basic Metabolic Panel (Routine) Location: None Selected Ordered By: Ashwini Braden Discharge Data Discharge Date/Time-TO BE ENTERED AT DEPARTURE: 04/10/20 13:53 DS: Summary Status at Discharge Functional status at discharge: independent ambulation Overall status at discharge: patient is progressing back to baseline Mental Status: mental status grossly normal Speech and Movement: speech and movement normal Mood: congruent mood Affect: blunted Exam Const General: cooperative, no acute distress, disheveled and ill appearing chronically Nutritional Appearance: overweight Orientation: alert, awake and oriented x3 [facility] Head: normal to inspection, normocephalic and atraumatic Mouth: oral mucosa abnormal (dry, no exudates) Resp Effort & Inspection: normal respiratory effort Auscultation: clear to auscultation bilaterally Cardio Rate: regular rate Rhythm: regular rhythm Heart Sounds: no murmurs GI Inspection: normal to inspection and large pannus Palpation: soft Auscultation: normal bowel sounds Skin General skin exam: no rashes or lesions noted Neuro General: patient alert, patient awake and patient oriented x3 Cranial Nerves: CN's II-XI intact bilaterally Extrem General: full ROM Psych Mental Status: mental status grossly normal Speech and Movement: speech and movement normal Mood: congruent mood Affect: blunted Attitude: cooperative DS: Data Vitals/I&O Vitals and I&O: Vital Signs Temperature 36.6 C 04/10/20 08:37 Temperature Source Tympanic 04/10/20 08:37 Pulse 70 04/10/20 08:37 Pulse Rhythm Regular 04/10/20 08:38 Pulse 76 04/08/20 20:31 Respiratory Rate 16 04/10/20 08:37 Respiratory Effort Non-Labored 04/10/20 08:38 Respiratory Depth Normal 04/10/20 08:38 Respiratory Pattern Normal 04/10/20 08:38 Blood Pressure 116/75 04/10/20 08:37 Blood Pressure Mean 72 04/08/20 20:31 Blood Pressure Position Sitting 04/08/20 13:32 Pulse Oximetry 100 04/10/20 08:37 Oxygen Delivery Method Room Air 04/10/20 08:37 Oxygen Flow Rate 0 04/10/20 08:37 Pain Level 0 04/10/20 08:37 Comment 04/09/20 22:28 Intake & Output 04/09/20 04/09/20 04/10/20 11:59 23:59 11:59 Intake Total 1077.5 / 2377.5 1300 / 2377.5 810 / 810 Output Total 300 / 300 300 / 300 Balance 1077.5 / 2077.5 1000 / 2077.5 510 / 510 Intake: IV 987.5 / 2287.5 1300 / 2287.5 Oral 90 / 90 810 / 810 Output: Urine 300 / 300 300 / 300 Other: Urine Color Light Jovanna Yellow Urine Appearance Cloudy Clear Urine Odor Normal Comment pt states she voided in toilet x1, removed measuring hat. Stool Size Small Stool Characteristics Liquid Voiding Methods Toilet Toilet Data Completed and Pending Labs on day of discharge: Labs from last 24 hours 04/10/20 04/10/20 04/10/20 09:50 09:50 07:17 WBC 5.82 RBC 2.79 L Hgb 9.3 L Hct 26.7 L MCV 95.7 H MCH 33.3 H MCHC 34.8 RDW 21.2 H Plt Count 349 MPV 9.1 Immature Gran % 0.0 Neutrophils % 50.0 Band Neutrophils % 14.0 Lymphocytes % 19.0 Monocytes % 14.0 Eosinophils % 3.0 Basophils % 0.0 Absolute Neutrophils 3.72 Absolute Lymphocytes 1.11 L Absolute Monocytes 0.81 H Absolute Eosinophils 0.17 Absolute Basophils 0.00 Differential Comment Manual differential RBC Morphology See below Polychromasia Present Hypochromasia Poikilocytosis Anisocytosis 2+ Sodium 135 L Potassium 3.2 L Chloride 106 Carbon Dioxide 16.2 L Anion Gap 12.8 H BUN 23 H Creatinine 1.48 H Estimated GFR/1.73 m2 35.97 Glucose 92 Calcium 6.8 L Magnesium Total Bilirubin 0.5 AST 13 L ALT 14 Alkaline Phosphatase 53 Total Protein 4.4 L Albumin 1.7 L Urine Color Yellow Urine Clarity Cloudy Urine pH 5.5 Ur Specific [place] >= 1.030 H Urine Protein 100 H Urine Ketones Negative Urine Blood Large H Urine Nitrite Negative Urine Bilirubin Negative Urine Urobilinogen 0.2 Ur Leukocyte Esterase Small H Urine RBC 3-5 H Urine WBC 5-10 Ur Epithelial Cells Moderate Urine Crystals Negative Urine Bacteria Moderate Urine Casts 3-5 coarse granular Urine Mucus Trace Urine Other Ur Culture Indicated? No/sq. contamination Urine Glucose Negative Stool Calprotectin COVID-19 PCR Nasopharyn COVID-19 PCR Ref Test Perform Site 04/09/20 04/09/20 04/09/20 23:20 14:40 14:40 WBC 5.82 6.22 D RBC 2.75 L 3.36 L Hgb 8.9 L 10.9 L D Hct 26.2 L 31.8 L MCV 95.3 H 94.6 MCH 32.4 32.4 MCHC 34.0 34.3 RDW 20.9 H 20.9 H Plt Count 334 429 H MPV 8.8 8.9 Immature Gran % 0.0 Neutrophils % 58.0 Band Neutrophils % 5.0 Lymphocytes % 17.0 Monocytes % 20.0 Eosinophils % 0.0 Basophils % 0.0 Absolute Neutrophils 3.67 Absolute Lymphocytes 0.99 L Absolute Monocytes 1.16 H Absolute Eosinophils 0.00 Absolute Basophils 0.00 Differential Comment Manual differential RBC Morphology See below Polychromasia Present Hypochromasia 1+ Poikilocytosis 1+ Anisocytosis 2+ Sodium Potassium Chloride Carbon Dioxide Anion Gap BUN Creatinine Estimated GFR/1.73 m2 Glucose Calcium Magnesium 2.2 Total Bilirubin AST ALT Alkaline Phosphatase Total Protein Albumin Urine Color Urine Clarity Urine pH Ur Specific [place] Urine Protein Urine Ketones Urine Blood Urine Nitrite Urine Bilirubin Urine Urobilinogen Ur Leukocyte Esterase Urine RBC Urine WBC Ur Epithelial Cells Urine Crystals Urine Bacteria Urine Casts Urine Mucus Urine Other Ur Culture Indicated? Urine Glucose Stool Calprotectin COVID-19 PCR Nasopharyn COVID-19 PCR Ref Test Perform Site 04/09/20 04/08/20 04/08/20 14:40 20:58 14:30 WBC RBC Hgb Hct MCV MCH MCHC RDW Plt Count MPV Immature Gran % Neutrophils % Band Neutrophils % Lymphocytes % Monocytes % Eosinophils % Basophils % Absolute Neutrophils Absolute Lymphocytes Absolute Monocytes Absolute Eosinophils Absolute Basophils Differential Comment RBC Morphology Polychromasia Hypochromasia Poikilocytosis Anisocytosis Sodium 135 L Potassium 3.1 L Chloride 104 Carbon Dioxide 19.3 L Anion Gap 11.7 H BUN 27 H Creatinine 1.69 H Estimated GFR/1.73 m2 30.87 Glucose 106 Calcium 7.1 L Magnesium Total Bilirubin AST ALT Alkaline Phosphatase Total Protein Albumin Urine Color Urine Clarity Urine pH Ur Specific [place] Urine Protein Urine Ketones Urine Blood Urine Nitrite Urine Bilirubin Urine Urobilinogen Ur Leukocyte Esterase Urine RBC Urine WBC Ur Epithelial Cells Urine Crystals Urine Bacteria Urine Casts Urine Mucus Urine Other Ur Culture Indicated? Urine Glucose Stool Calprotectin Pending COVID-19 PCR Negative Nasopharyn COVID-19 PCR Not Applicable Ref Test Perform Site [facility] lab 04/09/20 22:43 Blood Blood Culture - Pending 04/09/20 23:10 Blood Blood Culture - Pending Preliminary micro results at discharge 04/09/20 22:43 Blood Culture - Pending Blood 04/09/20 23:10 Blood Culture - Pending Blood [facility] Medical History (Updated 04/09/20 @ 16:33 by Ashwini Braden NP) CKD (chronic kidney disease) (Acute) Deep venous thrombosis of upper extremity (Inactive) Right Diarrhea (Acute) HTN (hypertension) (Chronic) Infiltrating ductal carcinoma of breast, stage 3 (Chronic) Metastatic breast cancer (Acute) RIGHT Palliative care patient (Acute) Surgical History Breast, Mastectomy (Inactive) Right partial mastectomy, with sentinel lymph node biopsy, then completion ALND Family History Mother No problems noted. Father No problems noted. Social History Smoking/Tobacco Use Status: Current every day Tobacco Type: cigarettes Alcohol Intake: never Drug use: Never Substance use type: does not use Do you feel safe at home: Yes Do you feel safe in your relationship?: Yes
--- NOTE | 2020-04-10 12:06 | PDOC.CMDIS ---
LACE Index Scoring Tool - Questions: Length of Stay (in days): 2 Acuity (Admit via E.D.?): Yes Comorbidities: Liver or Renal Disease, Metastatic Solid Tumor E.D. Visits: 6 - Answers: Total Score: 14 Risk of Readmission: High Risk Care Management Discharge Reason for Hospitalization: Weakness, dehydration Discharge Plan: Mabel will be discharged home with no additional services and close follow up with PCP, [facility] and Palliative care. She will transport via private vehicle with a friend. Patient/Family Education Needs: Review of discharge instructions, resources for financial support, referral to [facility] for options regarding possible disability or increased home supports, discuss self care needs, Ask Me Three.
[2020-04-10] MEDS: Potassium Chloride Liquid 20 MEQ PKT 40 MEQ PO (12:22)
[2020-04-10] MEDS: Normal Saline Flush 10 ML SYR IVP (13:49)
[2020-04-10 15:30] LABS: Bilirubin Negative (Negative); Blood Negative (Negative); Clarity Cloudy (Clear); Glucose Negative (Negative); Ketones Trace mg/dL (Negative); Leukocyte Esterase Negative (Negative); Nitrite Negative (Negative); Specific Gravity >= 1.030 (1.005-1.025); Urobilinogen 0.2 EU/dL (Up TO 0.2); pH 5.5 (5-8)
[2020-04-10 15:52] LABS: Bacteria Many HPF (Negative); Epithelial Cells Few HPF (Negative); Other Cells Negative (Negative); RBC Negative HPF (0-2)
[2020-04-10 15:55] LABS: Crystals Moderate Amorphous HPF (Negative)
[2020-04-10 15:56] LABS: C & S Indicated? Yes; Casts Negative LPF (Negative); Mucus Negative (Negative)
[2020-04-13 18:53] LABS: Calprotectin >1000 mcg/g
== END 2020-04-10 13:53 | disposition home or self-care (01) | DRG 392 ==
LOC: ER 16:48 → MS 21:12
PROVIDERS: Family Medicine; Nurse Practitioner Acute Care; Physician Assistant; Admitting Provider General Practice; Emergency Provider Physician Assistant; PCP Nurse Practitioner Family; Visit Provider Internal Medicine
DX: R11.2 Nausea with vomiting, unspecified (principal); C78.00 Secondary malignant neoplasm of unspecified lung; N17.9 Acute kidney failure, unspecified; K52.9 Noninfective gastroenteritis and colitis, unspecified; E86.0 Dehydration; E87.6 Hypokalemia; Z79.899 Other long term (current) drug therapy; C50.919 Malignant neoplasm of unspecified site of unspecified female breast; I10 Essential (primary) hypertension; N18.9 Chronic kidney disease, unspecified; Z86.711 Personal history of pulmonary embolism; Z79.01 Long term (current) use of anticoagulants; Z03.818 Encounter for observation for suspected exposure to other biological agents ruled out
CPT/HCPCS: 36415; 80048; 80053; 83690; 85027; 87040; 93005; 96361; 96365; 96366; 96375; 99222; 99233; 99239; 99255; 99285; U0003; 71046; 81003; 81015; 83735; 83993; 84484; 85025; 85610; 85730; 87086; 93010; G0378; J2405; J3480

== ENCOUNTER 2020-05-20 02:29 | Outpatient (CLI) | payer BC, SELFPAY ==
[2020-05-20 07:35] LABS: Abs Immature Grans 0.01 10^3/uL (0.0-0.06); Absolute Basophil Count 0.03 10^3/uL (0.0-0.2); Absolute Eosinophil Count 0.16 10^3/uL (0.0-0.7); Absolute Lymphocyte Count 1.31 10^3/uL (1.2-3.4); Absolute Monocyte Count 0.52 10^3/uL (0.1-0.8); Basophils % 1.3; HCT 35.2 % (36.0-46.0); HGB 11.3 g/dL (11.2-15.7); Immature Grans % 0.4; Lymphocytes % 57.5; MCH 31.2 pg (27.0-33.0); MCHC 32.1 % (32.0-36.0); MCV 97.2 fL (80-95); MPV 9.3 fL (8.0-11.0); Monocytes % 22.8; Nucleated RBC 0 %; RBC 3.62 10^6/uL (3.93-5.22); RDW 13.4 % (11.7-14.6); RDW-SD 47.9 fL; WBC 2.28 10^3/uL (4.4-10.8)
[2020-05-20 07:43] LABS: ALT 19 U/L (14-59); AST 19 U/L (15-37); Alkaline Phosphatase 66 U/L (46-116); Anion Gap 11.1 mmol/L (3-11); BUN 6 mg/dL (7-18); Bilirubin, Total 0.3 mg/dL (0.2-1.0); CO2 22.9 mmol/L (21.0-32.0); CREATININE 1.33 mg/dL (0.55-1.02); Calcium 8.8 mg/dL (8.5-10.1); Chloride 107 mmol/L (98-107); Glucose 89 mg/dL (74-106); Potassium 3.9 mmol/L (3.5-5.1); Sodium 141 mmol/L (136-145); Total Protein 6.1 g/dL (6.4-8.2)
[2020-05-20 07:53] LABS: Diff Comment Agrees w/ Instrument; Hypochromasia 1+; Polychromasia Present
[2020-05-20 07:54] LABS: Poikilocytes 1+
[2020-05-20 07:55] LABS: Platelet Count 388 10^3/uL (130-400)
[2020-05-20 08:15] LABS: Absolute Neutrophil Count 0.25 10^3/uL (1.2-6.7)
== END 2020-05-20 02:49 ==
PROVIDERS: PCP Nurse Practitioner Family; Visit Provider Internal Medicine Hematology & Oncology
DX: E87.6 Hypokalemia (principal); N17.9 Acute kidney failure, unspecified; N18.9 Chronic kidney disease, unspecified
CPT/HCPCS: 36415; 80053; 85025

== ENCOUNTER 2020-05-25 02:37 | Outpatient (CLI) | payer BC, SELFPAY ==
[2020-05-25 09:01] LABS: Abs Immature Grans 0.05 10^3/uL (0.0-0.06); Absolute Basophil Count 0.04 10^3/uL (0.0-0.2); Absolute Eosinophil Count 0.09 10^3/uL (0.0-0.7); Absolute Lymphocyte Count 1.84 10^3/uL (1.2-3.4); Absolute Monocyte Count 0.69 10^3/uL (0.1-0.8); Basophils % 0.8; Eosinophils % 1.7; HCT 35.2 % (36.0-46.0); HGB 11.1 g/dL (11.2-15.7); Lymphocytes % 35.3; MCH 31.1 pg (27.0-33.0); MCHC 31.5 % (32.0-36.0); MCV 98.6 fL (80-95); MPV 9.2 fL (8.0-11.0); Monocytes % 13.2; Nucleated RBC 0 %; Platelet Count 379 10^3/uL (130-400); RBC 3.57 10^6/uL (3.93-5.22); RDW 13.3 % (11.7-14.6); RDW-SD 48.1 fL; WBC 5.21 10^3/uL (4.4-10.8)
== END 2020-05-25 02:57 ==
PROVIDERS: PCP Nurse Practitioner Family; Visit Provider Internal Medicine Hematology & Oncology
DX: C50.411 Malignant neoplasm of upper-outer quadrant of right female breast (principal)
CPT/HCPCS: 36415; 85025

== ENCOUNTER 2020-06-09 04:37 | Outpatient (CLI) | payer BC, SELFPAY ==
[2020-06-09 12:27] LABS: Abs Immature Grans 0.32 10^3/uL (0.0-0.06); Absolute Basophil Count 0.06 10^3/uL (0.0-0.2); Absolute Eosinophil Count 0.18 10^3/uL (0.0-0.7); Absolute Lymphocyte Count 1.77 10^3/uL (1.2-3.4); Absolute Monocyte Count 0.68 10^3/uL (0.1-0.8); Absolute Neutrophil Count 6.43 10^3/uL (1.2-6.7); Basophils % 0.6; Eosinophils % 1.9; HCT 34.1 % (36.0-46.0); HGB 11.2 g/dL (11.2-15.7); Immature Grans % 3.4; Lymphocytes % 18.8; MCH 31.2 pg (27.0-33.0); MCHC 32.8 % (32.0-36.0); MPV 9.8 fL (8.0-11.0); Monocytes % 7.2; Neutrophils % 68.1; Nucleated RBC 0 %; Platelet Count 297 10^3/uL (130-400); RBC 3.59 10^6/uL (3.93-5.22); WBC 9.44 10^3/uL (4.4-10.8)
[2020-06-09 12:42] LABS: ALT 22 U/L (14-59); AST 19 U/L (15-37); Albumin 3.2 g/dL (3.4-5.0); Alkaline Phosphatase 76 U/L (46-116); Anion Gap 9.1 mmol/L (3-11); BUN 9 mg/dL (7-18); Bilirubin, Total 0.2 mg/dL (0.2-1.0); CO2 23.9 mmol/L (21.0-32.0); CREATININE 1.46 mg/dL (0.55-1.02); Calcium 8.6 mg/dL (8.5-10.1); Chloride 106 mmol/L (98-107); Estimated GFR 36.54 (mL/min/1.73m2); Glucose 128 mg/dL (74-106); Potassium 3.6 mmol/L (3.5-5.1); Sodium 139 mmol/L (136-145); Total Protein 6.3 g/dL (6.4-8.2)
== END 2020-06-09 04:57 ==
PROVIDERS: PCP Nurse Practitioner Family; Visit Provider Internal Medicine Hematology & Oncology
DX: C50.411 Malignant neoplasm of upper-outer quadrant of right female breast (principal)
CPT/HCPCS: 36415; 80053; 85025